=== PATIENT | female | born 1960 | race Two or more races ===

== ENCOUNTER 2021-01-09 09:16 | Emergency (ER) | payer OTHER, SELFPAY ==
--- NOTE | ~2021-01-09 | XR_ITS ---
EXAMINATION: LUMBAR SPINE AND PELVIS AND RIGHT HIP X-RAYS CLINICAL INFORMATION: Pain post fall COMPARISON: None TECHNIQUE: 3 views of the lumbar spine, one view of the pelvis and 2 views of the right hip FINDINGS: Pelvis and right hip: Bone alignment is normal. No fracture or dislocation is seen. There are small osteophytes at both hip joints, left greater than right. The hip joints are otherwise normal. Bones of the pelvis are normal. Soft tissues are normal. Lumbar spine: Bone alignment is normal. No fracture or dislocation is seen. Disc spaces are normal. There is mild facet arthritis of the lower lumbar spine. XR/XR lumbar spine 2-3V IMPRESSION: No fracture or dislocation.
--- NOTE | ~2021-01-09 | XR_ITS ---
EXAMINATION: LUMBAR SPINE AND PELVIS AND RIGHT HIP X-RAYS CLINICAL INFORMATION: Pain post fall COMPARISON: None TECHNIQUE: 3 views of the lumbar spine, one view of the pelvis and 2 views of the right hip FINDINGS: Pelvis and right hip: Bone alignment is normal. No fracture or dislocation is seen. There are small osteophytes at both hip joints, left greater than right. The hip joints are otherwise normal. Bones of the pelvis are normal. Soft tissues are normal. Lumbar spine: Bone alignment is normal. No fracture or dislocation is seen. Disc spaces are normal. There is mild facet arthritis of the lower lumbar spine. XR/XR hip RT w PEL1V IMPRESSION: No fracture or dislocation.
[2021-01-09 09:29] VITALS: BP 121/63; PULSE 82; RESP 18; TEMP 37; O2SAT 99; BMI 27.3
--- NOTE | 2021-01-09 10:08 | ED_ITS ---
HPI - Back Pain/Injury General Chief Complaint: Back Pain/Injury Stated Complaint: work injury - back pain Time Seen by Provider: 01/09/21 10:06 Source: patient Mode of arrival: ambulatory Limitations: no limitations History of Present Illness HPI Narrative: 60-year-old female presenting to the ED with complaints of a work related injury when she was at work 2 days ago she was walking and suddenly just slipped she believes on possibly water landed on her buttock/right hip and since then she has been having pain. She denies head injury or loss of consciousness. She denies any other symptoms complaints or concerns at this time. MD elicited complaint: back pain, back injury and fall Pertinent past history: recent trauma Onset (ago): day(s) (Two days ago) Timing: constant and progressively worsening Severity: moderate Similar Symptoms Previously: No Quality: aching Location: lumbar spine and right lower back Radiation: none Exacerbating factors: movement, walking and lifting Relieving factors: none Context: fall Associated symptoms: denies other symptoms Work related injury: Yes Related Data Previous Rx's Medication Instructions Recorded acetaminophen 500 mg tablet 1,000 mg PO QID PRN #14 tab 01/09/21 (Tylenol Extra Strength) cyclobenzaprine 10 mg tablet 10 mg PO Q8H PRN #14 tab 01/09/21 ibuprofen 800 mg tablet 800 mg PO Q8H PRN #14 tab 01/09/21 lidocaine 5 % topical patch 1 patch TOPICAL DAILY #15 ea 01/09/21 (Lidoderm) Allergies Allergy/AdvReac Type Severity Reaction Status Date / Time codeine [CODEINE] Allergy Unknown HIVES Unverified 11/22/19 16:56 oxycodone [OXYCODONE] Allergy Unknown HIVES Unverified 11/22/19 16:56 azithromycin [From ZITHROMAX] AdvReac Intermediate NAUSEA & Unverified 11/22/19 16:56 VOMITING Review of Systems Review of Systems: Constitutional : No trauma, No Weight loss, No Fever, No Chills, ENT/Mouth : No Hearing loss, No Ear Pain, No Nasal Congestion, No Sinus Pain, No Hoarseness, No sore throat, No Rhinorrhea, No Swallowing Difficulty Cardiovascular : No Chest Pain, No SOB Respiratory : No Cough, No Dyspnea Gastrointestinal : No Nausea, No Vomiting, No Diarrhea, No abdominal Pain, No Hematochezia, No Melena Genitourinary : No Dysuria, No Urinary Frequency, No Hematuria, No Urinary or Bowel Incontinence/retention Musculoskeletal : + Back pain and right hip pain No neck pain, No joint stiffness, No joint swelling Skin : No Skin Lesions, No rash or signs of infection Neuro : No Weakness, No radiation, No Numbness, No Paresthesias, No headache, no loss of bowel or bladder incontinence, no saddle anesthesia, Focal weakness, No radiation Denies history of IV drug usage. Yes all other systems are reviewed and are negative [facility] Past Medical History Attestation statement: The following information was validated with the patient. Medical History Asthma Social History Social History Advance Directives: No Patient : No Physical Exam Vital Signs: Vital Signs: Last Vital Signs Temp 98.6 F 01/09/21 09:29 Pulse 82 01/09/21 09:29 Resp 18 01/09/21 09:29 BP 121/63 01/09/21 09:29 Pulse Ox 99 01/09/21 09:29 Body Mass Index 27.3 vital signs have been reviewed as normal and appeared to be correct. Blood pressure normal. Heart rate normal. Respiration rate normal. Temperature normal. Oxygen saturation normal. Appearance: Alert. Oriented X3. No acute distress. Head: Normal external exam. Normocephalic. Atraumatic. No Perez signs noted. No raccoon eyes noted Eyes: PERRLA. EOMI. Conjunctiva and sclera normal. Eyelids normal. ENT: EAC normal. TM's Normal. Pharynx normal. Uvula midline. Moist mucous membranes. No trismus noted. No drooling noted. No muffled voice noted. Neck: Normal inspection. Neck supple. FROM. No adenopathy. Thyroid Normal. No meningeal signs. No neck mass noted. CVS: Normal heart rate and rhythm. Heart sound normal. No murmurs noted. Pulses normal throughout. Respiratory: No respiratory distress. Painless inspiration. Breath sounds normal. No wheezes/rales/rhonchi noted. Chest nontender. No accessory muscle usage noted or decreased air movement noted. Abdomen: Soft and nontender. Bowel sounds normal in all 4 quadrants. No distention noted. No organomegaly noted. No visible injury noted. Back: No CVA tenderness. Full range of motion noted. No obvious deformities, or edema. Mild para-spinal muscular tenderness from lumbar region to coccyx. Full ROM in back and lower extremities. 5/5 strength hip extension/flexion, abduction, adduction. Mild Lumbar pain with hip flexion against resistance. Straight leg raise test negative on right; Straight leg raise test negative on left; Reflexes normal ankle and knee bilaterally; EHL motor strength normal bilaterally. No rashes/lesion/induration/fluctuance or signs infection noted. Skin: Skin warm and dry. Normal skin color. Normal skin turgor. No rashes/les ions/lacerations noted. Extremities: No lower extremity edema. Extremities exhibit normal range of motion. Extremities nontender. Neuro: Oriented X 3. No motor deficit. No sensory deficit. Reflexes normal. Patient has a normal steady gait. Course Course Course Narrative: Pt c likely muscular pain, but could be herniated disc. Neuro exam shows no deficits. Not c/w AAA/epidural abscess/dissection.No high risk Hx (Incont, fever, immunosupp, recent surgery/LP, coag, signif trauma, wt loss, p uls mass, hx/o Ca, TB, or IVDU) to warrant MRI/CT today. Not c/w Pyelo/UTI/kidney stone. Not cauda equina syndrome. Although due to recent fall will obtain x-ray of lumbar spine and right hip provide Motrin and if x-rays are negative will DC home with symptomatic treatment such as Motrin and muscle relaxes and to return if any new or worsening symptoms follow-up with Work connection. Patient understands agrees with this plan. MDM - Back Pain/Injury Medical Records Attestation: I reviewed the patient's medical records. Imaging Data Lumbar spine and right hip x-ray: Attestation: I personally reviewed and interpreted this imaging study as follows: Radiologist's impression: EXAMINATION: LUMBAR SPINE AND PELVIS AND RIGHT HIP X-RAYS CLINICAL INFORMATION: Pain post fall? COMPARISON: None? TECHNIQUE: 3 views of the lumbar spine, one view of the pelvis and 2 views of the right hip? FINDINGS: Pelvis and right hip: Bone alignment is normal. No fracture or dislocation is seen. There are small osteophytes at both hip joints, left greater than right. The hip joints are otherwise normal. Bones of the pelvis are normal. Soft tissues are normal. Lumbar spine: Bone alignment is normal. No fracture or dislocation is seen. Disc spaces are normal. There is mild facet arthritis of the lower lumbar spine. XR/XR hip RT w PEL1V IMPRESSION: No fracture or dislocation.? Discharge Plan Discharge Clinical Impression: Strain of lumbar region, Fall, Work related injury Patient Disposition: Home, Self-Care Instructions: Low Back Strain (ED), Return to Work Instructions (ED), Lower Back Exercises (ED) Prescriptions: New cyclobenzaprine 10 mg tablet 10 mg PO Q8H PRN (Reason: Muscle spasm) Qty: 14 RF: 0 ibuprofen 800 mg tablet 800 mg PO Q8H PRN (Reason: pain) Qty: 14 RF: 0 acetaminophen [Tylenol Extra Strength] 500 mg tablet 1,000 mg PO QID PRN (Reason: fever or pain) Qty: 14 RF: 0 lidocaine [Lidoderm] 5 % adhesive patch,medicated 1 patch topical DAILY Qty: 15 RF: 0 Referrals: Physician,None [Primary Care Provider] - 2 days (your pcp) Stand Alone Forms: Work/School Release Print Language: Malaysian
[2021-01-09] MEDS: Ibuprofen 800 MG TABLET PO (10:23)
== END 2021-01-09 10:49 | disposition home or self-care (01) ==
PROVIDERS: Emergency Provider Emergency Medicine
DX: S39.012A Strain of muscle, fascia and tendon of lower back, initial encounter (principal); W01.0XXA Fall on same level from slipping, tripping and stumbling without subsequent striking against object, initial encounter; Y93.89 Activity, other specified; Y92.219 Unspecified school as the place of occurrence of the external cause; Y99.0 Civilian activity done for income or pay
CPT/HCPCS: 72100; 73502; 99283

== ENCOUNTER 2021-01-21 10:26 | Emergency (ER) | payer OTHER, SELFPAY ==
[2021-01-21 10:28] VITALS: BP 134/66; PULSE 81; RESP 16; TEMP 36.3; O2SAT 100; BMI 27.3
[2021-01-21] MEDS: traMADoL HCL 50 MG TABLET PO (11:09)
[2021-01-21] MEDS: Ketorolac Tromethamine 15 MG/ML VIAL 30 MG IM (11:09)
--- NOTE | 2021-01-21 11:24 | ED.BACK ---
HPI - Back Pain/Injury General Chief Complaint: Back Pain/Injury Stated Complaint: back pain Time Seen by Provider: 01/21/21 10:45 Source: patient Mode of arrival: ambulatory History of Present Illness HPI Narrative: 60-year-old female with a past medical history of asthma presenting to the ED complaining of acute on chronic right-sided low back pain s/p slip and fall on all 01/09. Patient was seen and treated in the ED after incident, and x-rays are unremarkable. Reports taking prescribed medications without relief, pain worsening. Denies new or more recent fall/injury. Reports pain radiates to right buttock. Denies numbness, tingling, weakness, urinary incontinence/retention, hematuria MD elicited complaint: back pain Related Data Previous Rx's Medication Instructions Recorded acetaminophen 500 mg tablet 1,000 mg PO QID PRN #14 tab 01/09/21 (Tylenol Extra Strength) cyclobenzaprine 10 mg tablet 10 mg PO Q8H PRN #14 tab 01/09/21 ibuprofen 800 mg tablet 800 mg PO Q8H PRN #14 tab 01/09/21 lidocaine 5 % topical patch 1 patch TOPICAL DAILY #15 ea 01/09/21 (Lidoderm) acetaminophen 500 mg tablet 500 mg PO Q6H PRN #20 tab 01/21/21 (Tylenol Extra Strength) cyclobenzaprine 5 mg tablet 5 mg PO Q8H PRN 5 Days #14 tab 01/21/21 lidocaine 5 % topical patch 1 patch TOPICAL DAILY PRN #30 ea 01/21/21 (Lidoderm) MDD remove after 12 hours naproxen 500 mg tablet 500 mg PO BID PRN 10 Days #20 tab 01/21/21 tramadol 50 mg tablet 50 mg PO Q8H PRN #9 tab 01/21/21 Allergies Allergy/AdvReac Type Severity Reaction Status Date / Time codeine [CODEINE] Allergy Unknown HIVES Unverified 11/22/19 16:56 oxycodone [OXYCODONE] Allergy Unknown HIVES Unverified 11/22/19 16:56 azithromycin [From ZITHROMAX] AdvReac Intermediate NAUSEA & Unverified 11/22/19 16:56 VOMITING Review of Systems Review of Systems: Constitutional: No Fever, No Chills ENT/Mouth: No Ear Pain, No sore throat, No Rhinorrhea Cardiovascular: No Chest Pain, No SOB Respiratory: No Cough Gastrointestinal: No Nausea, No Vomiting, No Abdominal pain Genitourinary: No Hematuria, No Urinary Incontinence/retention Musculoskeletal: + joint pain, No Myalgias, No Joint Swelling Skin: No Skin Lesions, No rash Neuro: No Weakness, No Numbness, No Paresthesias Yes all other systems are reviewed and are negative Neurologic: Denies Sensory deficit (Neuro) [facility] Past Medical History Attestation statement: The following information was validated with the patient. Medical History Asthma Social History Social History Advance Directives: No Physical Exam Vital Signs: Vital Signs: Last Vital Signs Temp 97.3 F 01/21/21 10:28 Pulse 81 01/21/21 10:28 Resp 16 01/21/21 10:28 BP 134/66 01/21/21 10:28 Pulse Ox 100 01/21/21 10:28 Body Mass Index 27.3 Const: General: cooperative, healthy appearing and no acute distress Orientation/consciousness: patient oriented x3 Limitations: no limitations HENMT: Head: Yes normal to inspection Ears: hearing grossly normal bilaterally General nose exam: Normal external nose present Face and sinus: Yes normal facial exam Eyes: General: appearance normal, both eyes and all related structures EOM: EOMs intact bilaterally Neck: Neck: Yes normal visual inspection Resp: Effort & Inspection: normal respiratory effort and no respiratory distress Cardio: Rate: regular rate Heart sounds: S1 normal heart sound present and S2 normal heart sound present GI: Inspection: Yes normal to inspection Palpation (GI): Soft to palpation, nontender, no guarding and not rigid : General: Yes no CVA tenderness Back/Spine/Pelvis: Other: No midline thoracic/lumbar spinous tenderness/step-off or deformity. Right-sided buttock/lumbar MSK tenderness to palpation Back: no CVA tenderness Skin: Rashes: no rashes Wounds: no wounds Neuro: Other: No saddle anesthesia. Sensation intact to light touch. Strength intact throughout. Ambulating with steady gait General: patient oriented x3, gait normal, tone normal, moves all extremities and no focal motor deficits Gait exam (Neuro): Normal gait present Motor exam (neuro): 5/5 motor strength present throughout Sensory Exam: No Sensory deficit (Neuro) Extrem: General: Yes normal to inspection MDM - Back Pain/Injury MDM Narrative Medical decision making narrative: 60-year-old female with a past medical history of asthma presenting to the ED complaining of acute on chronic right-sided low back pain s/p slip and fall on all 01/09. On exam vital signs stable, NAD/nontoxic, no midline spinous tenderness throughout, no red flag symptoms. Likely MSK pain/sciatica/muscle spasming. Low concern for cauda equina, cord compression, epidural abscess Plan: Symptomatic treatment, patient has orthopedic follow-up on 01/27 Medical Records Attestation: I reviewed the patient's medical records. Lab Data Attestation: I reviewed the patient's lab results. Discharge Plan Discharge Clinical Impression: Strain of lumbar region Qualifiers: Encounter type: subsequent encounter Qualified Code(s): S39.012D - Strain of muscle, fascia and tendon of lower back, subsequent encounter Patient Disposition: Home, Self-Care Instructions: Acute Low Back Pain (ED) Additional Instructions: Your pain is likely musculoskeletal Flexeril is a muscle relaxer, take at night as it makes you drowsy, do not drive, drink alcohol, or operate machinery while taking it Naproxen as an anti-inflammatory / pain medication, take with food Lidoderm patches are numbing patches, apply to painful area Tramadol as an opiate pain medication, take only when pain is severe for the next 3 days In addition take Tylenol at home If symptoms persist or worsen, pain becomes unbearable, you developed urinary retention or incontinence, or weakness return to the ED Prescriptions: New tramadol 50 mg tablet 50 mg PO Q8H PRN (Reason: pain, severe) Qty: 9 RF: 0 acetaminophen [Tylenol Extra Strength] 500 mg tablet 500 mg PO Q6H PRN (Reason: pain or fever) Qty: 20 RF: 0 lidocaine [Lidoderm] 5 % adhesive patch,medicated 1 patch topical DAILY MDD remove after 12 hours PRN (Reason: pain) Qty: 30 RF: 0 naproxen 500 mg tablet 500 mg PO BID PRN (Reason: pain) 10 Days Qty: 20 RF: 0 cyclobenzaprine 5 mg tablet 5 mg PO Q8H PRN (Reason: pain (scale score 7-10)) 5 Days Qty: 14 RF: 0 No Action cyclobenzaprine 10 mg tablet 10 mg PO Q8H PRN (Reason: Muscle spasm) Qty: 14 RF: 0 ibuprofen 800 mg tablet 800 mg PO Q8H PRN (Reason: pain) Qty: 14 RF: 0 acetaminophen [Tylenol Extra Strength] 500 mg tablet 1,000 mg PO QID PRN (Reason: fever or pain) Qty: 14 RF: 0 lidocaine [Lidoderm] 5 % adhesive patch,medicated 1 patch topical DAILY Qty: 15 RF: 0 Referrals: Physician,None [Primary Care Provider] - 2 days Stand Alone Forms: Work/School Release
== END 2021-01-21 12:08 | disposition home or self-care (01) ==
PROVIDERS: Emergency Provider Emergency Medicine
DX: S39.012D Strain of muscle, fascia and tendon of lower back, subsequent encounter (principal); W01.0XXD Fall on same level from slipping, tripping and stumbling without subsequent striking against object, subsequent encounter; J45.909 Unspecified asthma, uncomplicated
CPT/HCPCS: 96372; 99284; J1885

== ENCOUNTER 2021-12-16 09:48 | Emergency (ER) | payer SELFPAY ==
--- NOTE | ~2021-12-16 | US_ITS ---
EXAMINATION: US VENOUS ULTRASOUND WITH DOPPLER LOWER EXTREMITY, LEFT CLINICAL INFORMATION: Left leg swelling. COMPARISON: None TECHNIQUE: Ultrasound of the deep veins is performed from the hip to the calf with compression sonography and color and pulse Doppler assessment. Spectral analysis with color-flow imaging is performed. FINDINGS: There is normal venous compression and respiratory variation and augmented flow. The visualized common femoral vein, superficial femoral vein, profunda femoral vein, popliteal vein, and the trifurcation region shows no evidence of deep venous thrombosis. Left popliteal cyst measures 4.7 x 1.1 x 3.6 cm. Color Doppler showed no abnormal vascular flow. The subcutaneous soft tissues are unremarkable. If the patient's symptoms persist, followup ultrasound in 5 days 7 days might be of value to exclude proximal propagation from a non-visualized calf vein. US/US venous duplex LE LT IMPRESSION: 1. No evidence for deep venous thrombosis in the visualized veins of the left lower extremity. 2. Left popliteal cyst as detailed above.
--- NOTE | ~2021-12-16 | XR_ITS ---
EXAMINATION: XR KNEE, LEFT CLINICAL INFORMATION: Left knee pain. COMPARISON: None TECHNIQUE: Four views of the left knee. FINDINGS: Mild medial femoral-tibial and patellofemoral degenerative joint changes are seen. There is no acute fracture or dislocation. No significant joint effusion. The soft tissues are unremarkable. XR/XR knee LT 4V IMPRESSION: Mild degenerative joint changes suggesting osteoarthritis. No overt acute osseous abnormality
[2021-12-16 10:04] VITALS: BP 132/80; PULSE 77; RESP 16; TEMP 36.1; O2SAT 98; BMI 28.3
--- NOTE | 2021-12-16 10:29 | ED.EXTPRO ---
HPI - Extremity Problem General Chief complaint: Extremity Problem Stated complaint: L leg swollen, pain cant step on it Time Seen by Provider: 12/16/21 10:12 Source: patient Mode of arrival: ambulatory Limitations: no limitations History of Present Illness HPI Narrative: Patient is a 61-year-old female with a past medical history of asthma, varicose veins, and low back pain presenting with left knee burning pain. Pain started approximately 3 weeks ago. patient states that pain worsens with movement and weight-bearing activity his, she also reports associated knee swelling. Patient denies radiating pain, fevers, chills, warmth of the joint. Patient takes naproxen at home for pain and used KT tape. MD Complaint: joint swelling and joint pain Onset (ago): week(s) (3) Pain Consistency: intermittent Location: left Quality: burning Radiation: none Relieving factors: cold therapy and rest Exacerbating factors: range of motion, weight bearing and walking Associated symptoms: denies other symptoms Related Data Previous Rx's Medication Instructions Recorded acetaminophen 500 mg tablet 1,000 mg PO QID PRN fever or pain 01/09/21 (Tylenol Extra Strength) #14 tabs cyclobenzaprine 10 mg tablet 10 mg PO Q8H PRN Muscle spasm #14 01/09/21 tabs ibuprofen 800 mg tablet 800 mg PO Q8H PRN pain #14 tabs 01/09/21 lidocaine 5 % topical patch 1 patch topical DAILY pain #15 ea 01/09/21 (Lidoderm) acetaminophen 500 mg tablet 500 mg PO Q6H PRN pain or fever 01/21/21 (Tylenol Extra Strength) #20 tabs cyclobenzaprine 5 mg tablet 5 mg PO Q8H PRN pain (scale score 01/21/21 7-10) 5 days #14 tabs lidocaine 5 % topical patch 1 patch topical DAILY PRN pain #30 01/21/21 (Lidoderm) ea naproxen 500 mg tablet 500 mg PO BID PRN pain 10 days #20 01/21/21 tabs tramadol 50 mg tablet 50 mg PO Q8H PRN pain, severe #9 01/21/21 tabs meloxicam 15 mg tablet 15 mg PO DAILY #14 tabs 12/16/21 Allergies Allergy/AdvReac Type Severity Reaction Status Date / Time codeine [CODEINE] Allergy Unknown HIVES Verified 12/16/21 10:04 oxycodone [OXYCODONE] Allergy Unknown HIVES Verified 12/16/21 10:04 azithromycin [From ZITHROMAX] AdvReac Intermediate NAUSEA & Verified 12/16/21 10:04 VOMITING Review of Systems Review of Systems: Constitutional: No Fever, No Chills ENT/Mouth: No sore throat, No Rhinorrhea, No Swallowing Difficulty Eyes: No Eye Pain, No Swelling, No Redness Cardiovascular: No Chest Pain, No SOB, No Orthopnea, No Edema Respiratory: No Cough, No Sputum, No Wheezing, No dyspnea Gastrointestinal: No Nausea, No Vomiting, No Diarrhea, No abdominal Pain Musculoskeletal: + left knee joint pain, No Myalgias Skin: No Skin Lesions, No rash Neuro: No Weakness, No Numbness, No Dizziness, No Headache Psych: No Anxiety/Panic, No Depression Heme/Lymph: No Bruising, No Lymphadenopathy PMFSH Past Medical History Medical History Asthma Social History Social History Advance Directives: No Advance Directives Information Provided: Yes Physical Exam Vital Signs: Vital Signs: Last Vital Signs Temp 97 F 12/16/21 10:04 Pulse 77 12/16/21 10:04 Resp 16 12/16/21 10:04 BP 132/80 12/16/21 10:04 Pulse Ox 98 12/16/21 10:04 O2 Del Method 12/16/21 10:04 BMI result Body Mass Index 28.3 Appearance: Alert. Oriented X3. No acute distress. Eyes: Pupils equal, round and reactive to light. ENT: Pharynx normal. Neck: Normal inspection. Neck supple. CVS: Normal heart rate and rhythm. Pulses normal. Respiratory: No respiratory distress. Breath sounds normal. Abdomen: Soft and nontender. Skin: Skin warm and dry. Normal skin color. Normal skin turgor. No rashes. Varicose veins noted on bilateral lower extremities Extremities: No lower extremity edema. Left knee with no pain on palpation, full range of motion, no weakness. vericose veins present at distal thighs bilatearally, chronic. mild pain in the popliteal area without palpable mass. no joint laxity apprecaited. Neuro: Oriented X 3. No motor deficit. No sensory deficit. gait not tested due to pain. Course Course Course Narrative: 61-year-old female with a past medical history of asthma, varicose veins, and low back pain presenting with left knee burning pain. Pain worse with movement and started approximately 3 weeks ago. Plan: - Knee X-ray - Ultrasound venous duplex LE Reevaluation(s) Reevaluation #1: X-ray showing osteoarthritis. 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 Placed in Ben wrap and provided crutches. Discussed rice treatment. She will follow-up with orthopedics. Work note provided per request. Stable for DC P Discharge Plan Discharge Clinical Impression: Solorzano cyst, Knee osteoarthritis Patient Disposition: Home, Self-Care Instructions: Osteoarthritis (ED), Bakers Cyst (ED) Additional Instructions: Your X-ray today showed mild degenerative joint changes suggesting osteoarthritis. Your ultrasound showed a 4.7 x 1.1 x 3.6 cyst in the popliteal area behind your knee. Recommend wearing the provided Ben wrap for compression and support. You may bear weight as tolerated. If it is too painful to bear weight, use the crutches provided. Rest, ice, elevate your knee whenever possible. Stop taking the naproxen and start taking the newly prescribed anti-inflammatory pain medication. Recommend following up with Orthopedics. Name and number below. If you develop new or worsening symptoms call 911 or come back to the ER for further evaluation. Prescriptions: New meloxicam 15 mg tablet 15 mg PO DAILY Qty: 14 0RF No Action cyclobenzaprine 10 mg tablet 10 mg PO Q8H PRN (Reason: Muscle spasm) Qty: 14 0RF ibuprofen 800 mg tablet 800 mg PO Q8H PRN (Reason: pain) Qty: 14 0RF acetaminophen [Tylenol Extra Strength] 500 mg tablet 1,000 mg PO QID PRN (Reason: fever or pain) Qty: 14 0RF lidocaine [Lidoderm] 5 % adhesive patch,medicated 1 patch topical DAILY Qty: 15 0RF Rx Instructions: leave on most painful area for up to 12 hrs. May be substituted tramadol 50 mg tablet 50 mg PO Q8H PRN (Reason: pain, severe) Qty: 9 0RF acetaminophen [Tylenol Extra Strength] 500 mg tablet 500 mg PO Q6H PRN (Reason: pain or fever) Qty: 20 0RF lidocaine [Lidoderm] 5 % adhesive patch,medicated 1 patch topical DAILY MDD remove after 12 hours PRN (Reason: pain) Qty: 30 0RF Rx Instructions: leave on most painful area for up to 12 hrs naproxen 500 mg tablet 500 mg PO BID PRN (Reason: pain) 10 Days Qty: 20 0RF cyclobenzaprine 5 mg tablet 5 mg PO Q8H PRN (Reason: pain (scale score 7-10)) 5 Days Qty: 14 0RF Referrals: [facility] [place] [facility] [Provider Group] (left knee pain, OA, bakers cyst) Stand Alone Forms: Work/School Release
== END 2021-12-16 13:15 | disposition home or self-care (01) ==
PROVIDERS: Emergency Provider Emergency Medicine
DX: M71.22 Synovial cyst of popliteal space [Baker], left knee (principal); R60.0 Localized edema; M54.50 Low back pain, unspecified; M17.12 Unilateral primary osteoarthritis, left knee; Z79.899 Other long term (current) drug therapy
CPT/HCPCS: 73564; 93971; 99283; 99284

== ENCOUNTER 2022-03-26 14:24 | Emergency (ER) | payer OTHER, SELFPAY ==
[2022-03-26 14:27] VITALS: BP 124/72; PULSE 87; RESP 19; TEMP 36.6; O2SAT 98; BMI 28.3
--- NOTE | 2022-03-26 14:28 | ED_ITS ---
HPI - URI/Sore Throat General Chief Complaint: Upper Respiratory Symptoms <Diane Sams MARY JO Smith - Last Filed: 03/26/22 15:08> Stated Complaint: congestion and tired <Diane Sams MARY JO Smith - Last Filed: 03/26/22 15:08> Time Seen by Provider: 03/26/22 14:33 <Diane Flaquitadelisa Smith CNP - Last Filed: 03/26/22 15:08> Source: patient <Diane Sams MARY JO Smith - Last Filed: 03/26/22 15:08> Mode of arrival: ambulatory <Diane Sams MARY JO Smith - Last Filed: 03/26/22 15:08> Limitations: no limitations <Diane Sams MARY JO Smith - Last Filed: 03/26/22 15:08> History of Present Illness HPI Narrative: Patient is a 61-year-old female who presents emergency department for evaluation of nasal/ sinus congestion for 1 week, progressively worsening, frontal headache with fatigue. Has tested for COVID at work and has been negative. Before this she had rhinorrhea, sore throat, cough which had improved. <Diane Sams MARY JO Smith - Last Filed: 03/26/22 15:08> Related Data Home Medications: Previous Rx's Medication Instructions Recorded acetaminophen 500 mg tablet 1,000 mg PO QID PRN fever or pain 01/09/21 (Tylenol Extra Strength) #14 tabs cyclobenzaprine 10 mg tablet 10 mg PO Q8H PRN Muscle spasm #14 01/09/21 tabs ibuprofen 800 mg tablet 800 mg PO Q8H PRN pain #14 tabs 01/09/21 lidocaine 5 % topical patch 1 patch topical DAILY pain #15 ea 01/09/21 (Lidoderm) acetaminophen 500 mg tablet 500 mg PO Q6H PRN pain or fever 01/21/21 (Tylenol Extra Strength) #20 tabs cyclobenzaprine 5 mg tablet 5 mg PO Q8H PRN pain (scale score 01/21/21 7-10) 5 days #14 tabs lidocaine 5 % topical patch 1 patch topical DAILY PRN pain #30 01/21/21 (Lidoderm) ea naproxen 500 mg tablet 500 mg PO BID PRN pain 10 days #20 01/21/21 tabs tramadol 50 mg tablet 50 mg PO Q8H PRN pain, severe #9 01/21/21 tabs meloxicam 15 mg tablet 15 mg PO DAILY #14 tabs 12/16/21 amoxicillin 875 mg-potassium 1 tab PO BID 7 days #14 tabs 03/26/22 clavulanate 125 mg tablet <Diane Smith CNP - Last Filed: 03/26/22 15:08> Allergies/Adverse Reactions: Allergies Allergy/AdvReac Type Severity Reaction Status Date / Time codeine [CODEINE] Allergy Unknown HIVES Verified 12/16/21 10:04 oxycodone [OXYCODONE] Allergy Unknown HIVES Verified 12/16/21 10:04 azithromycin [From ZITHROMAX] AdvReac Intermediate NAUSEA & Verified 12/16/21 10:04 VOMITING <Diane Smith CNP - Last Filed: 03/26/22 15:08> Review of Systems Review of Systems: Constitutional: No fever. No chills. No weakness. Positive fatigue. ENT/ Mouth: No Ear Pain, positive Nasal Congestion, no sore throat, No Rhinorrhea, No Swallowing Difficulty Skin: No rash or itching. Cardiovascular: No chest pain. No palpitations. Respiratory: No shortness of breath. No cough. No sputum production. Gastrointestinal: No nausea. No vomiting. No diarrhea. No abdominal pain. Genitourinary: No burning micturition. No urinary frequency. Neurologic: Positive headache. No dizziness. No syncope. No numbness or tingling in the extremities. Musculoskeletal: No muscle pain. No back pain. No joint pain or stiffness. <Diane Smith CNP - Last Filed: 03/26/22 15:08> Yes all other systems are reviewed and are negative <Diane Smith CNP - Last Filed: 03/26/22 15:08> PMF Past Medical History Attestation statement: The following information was validated with the patient. <Diane Smith CNP - Last Filed: 03/26/22 15:08> Source: old records reviewed <Diane Smith CNP - Last Filed: 03/26/22 15:08> Medical History: Medical History Asthma <Diane Smith CNP - Last Filed: 03/26/22 15:08> Social History Social History: Social History Advance Directives: No <Diane Smith CNP - Last Filed: 03/26/22 15:08> Physical Exam Vital Signs: Vital Signs: Last Vital Signs Temp 98 F 03/26/22 14:27 Pulse 87 03/26/22 14:27 Resp 03/26/22 14:27 BP 124/72 03/26/22 14:27 Pulse Ox 98 03/26/22 14:27 BMI result Body Mass Index 28.3 <Diane Smith CNP - Last Filed: 03/26/22 15:08> Vital Signs: Last Vital Signs Temp 98 F 03/26/22 14:27 Pulse 87 03/26/22 14:27 Resp 03/26/22 14:27 BP 124/72 03/26/22 14:27 Pulse Ox 98 03/26/22 14:27 BMI result Body Mass Index 28.3 <Demetri Sears MD - Last Filed: 03/26/22 16:22> Appearance: Alert.?Oriented to person, place and time. No acute distress.?Nor mal affect. Eyes: Pupils equal, round and reactive to light.? ENT: TM normal bilaterally. Pharynx normal.??Frontal sinus tenderness bilaterally. Neck: Normal inspection.? Neck supple.??No cervical adenopathy. No nuchal rigidity CVS: Heart sounds normal. Normal heart rate and rhythm.? Pulses normal.?? Respiratory: No respiratory distress.? Lung sounds clear to auscultation bilaterally?? Abdomen: Soft and non-tender. Normoactive bowel sounds. Skin: Skin warm and dry.? Normal skin color.? ? Extremities: No lower extremity edema.? Neuro: Moves all extremities spontaneously. Sensation intact bilaterally. No motor deficits. Ambulates with normal steady gait. <Diane Smith CNP - Last Filed: 03/26/22 15:08> Medical Decision Making Medical Decision Making MDM Narrative: Patient is a 61-year-old female with past medical history of asthma, presenting for evaluation of upper respiratory symptoms. COVID-19 testing negative. Influenza testing negative. Examination most consistent with sinusitis, given duration of symptoms suspect bacterial etiology at this time, discussed with patient plan of care for saline nasal spray/sinus rinses, prescription for Augmentin sent to pharmacy. At this time history and physical exam not consistent with ACS/PE/pneumonia. Well-appearing, nontoxic, afebrile, no tachycardia or tachypnea/hypoxia. Speaking clear full sentences, ambulatory with steady gait. Discussed conservative treatment including rest, hydration, Tylenol/ibuprofen as needed for pain. Advised to follow-up with primary care provider as needed, discussed reasons to return back to the emergency department. All questions were answered. Patient discharged home in stable condition. <Diane Smith CNP - Last Filed: 03/26/22 15:08> Differential Diagnosis Differential Diagnoses: The differential diagnosis associated with the presentation includes (As noted above) <Diane Smith CNP - Last Filed: 03/26/22 15:08> Lab Data MDM Lab Attestation statement: I reviewed the patient's lab results. <Diane Smith CNP - Last Filed: 03/26/22 15:08> Labs: Lab Results 03/26/22 03/26/22 Range/Units 14:35 14:35 COVID-19 ([facility]) Negative (Negative) COVID-19 Clin Com See Note Influenza Type A ([facility]) Negative (Negative) Influenza Type B ([facility]) Negative (Negative) Influenza A & B Note See Note <Diane Smith CNP - Last Filed: 03/26/22 15:08> Lab Results 03/26/22 03/26/22 Range/Units 14:35 14:35 COVID-19 ([facility]) Negative (Negative) COVID-19 Clin Com See Note Influenza Type A ([facility]) Negative (Negative) Influenza Type B ([facility]) Negative (Negative) Influenza A & B Note See Note <Demetri Sears MD - Last Filed: 03/26/22 16:22> Prescription Management I considered prescription management with: Antibiotic <Diane Smith CNP - Last Filed: 03/26/22 15:08> Attestation Attending Attestation: I personally reviewed PA/resident/nurse practitioner note. I reviewed a all results and treatment plan. I agree with the assessment and plan. I agree with disposition <Demetri Sears MD - Last Filed: 03/26/22 16:22> Discharge Plan Discharge Clinical Impression: Sinusitis <Diane Smith CNP - Last Filed: 03/26/22 15:08> Patient Disposition: Home, Self-Care <Diane Smith CNP - Last Filed: 03/26/22 15:08> Instructions: Sinusitis (ED) <Diane Smith CNP - Last Filed: 03/26/22 15:08> Additional Instructions: A prescription for Augmentin was sent to your pharmacy, please complete this entire course. Saline nasal spray/sinus rinses may also be helpful for your symptoms. Follow-up with your primary care provider as needed for persistent symptoms. Feel free to return back to emergency department any new or worsening symptoms or concerns. <Diane Smith CNP - Last Filed: 03/26/22 15:08> Prescriptions: New amoxicillin-pot clavulanate 875-125 mg tablet 1 tab PO BID 7 Days Qty: 14 0RF No Action cyclobenzaprine 10 mg tablet 10 mg PO Q8H PRN (Reason: Muscle spasm) Qty: 14 0RF ibuprofen 800 mg tablet 800 mg PO Q8H PRN (Reason: pain) Qty: 14 0RF acetaminophen [Tylenol Extra Strength] 500 mg tablet 1,000 mg PO QID PRN (Reason: fever or pain) Qty: 14 0RF lidocaine [Lidoderm] 5 % adhesive patch,medicated 1 patch topical DAILY Qty: 15 0RF Rx Instructions: leave on most painful area for up to 12 hrs. May be substituted meloxicam 15 mg tablet 15 mg PO DAILY Qty: 14 0RF tramadol 50 mg tablet 50 mg PO Q8H PRN (Reason: pain, severe) Qty: 9 0RF acetaminophen [Tylenol Extra Strength] 500 mg tablet 500 mg PO Q6H PRN (Reason: pain or fever) Qty: 20 0RF lidocaine [Lidoderm] 5 % adhesive patch,medicated 1 patch topical DAILY MDD remove after 12 hours PRN (Reason: pain) Qty: 30 0RF Rx Instructions: leave on most painful area for up to 12 hrs naproxen 500 mg tablet 500 mg PO BID PRN (Reason: pain) 10 Days Qty: 20 0RF cyclobenzaprine 5 mg tablet 5 mg PO Q8H PRN (Reason: pain (scale score 7-10)) 5 Days Qty: 14 0RF <Diane Smith CNP - Last Filed: 03/26/22 15:08> Referrals: Physician,None [Primary Care Provider] - <Diane Smith CNP - Last Filed: 03/26/22 15:08> Interventions: ED Discharge Assessment Last Done: 03/26/22 15:14 <Diane Smith CNP - Last Filed: 03/26/22 15:08> Discharge Date/Time: 03/26/22 15:16 <Diane Smith CNP - Last Filed: 03/26/22 15:08>
[2022-03-26 14:56] LABS: COVID-19 Test Negative (Negative); IDNOW Serial# BCCEAD1C
[2022-03-26 14:59] LABS: IDNOW Serial# 9DB6401D; Influenza A Negative (Negative); Influenza B2 Negative (Negative)
== END 2022-03-26 15:16 | disposition home or self-care (01) ==
LOC: HO.ED 14:40
PROVIDERS: Nurse Practitioner Family; Emergency Provider Emergency Medicine
DX: J32.9 Chronic sinusitis, unspecified (principal); Z20.822 Contact with and (suspected) exposure to COVID-19; Z87.09 Personal history of other diseases of the respiratory system
CPT/HCPCS: 87502; 87635; 99282; 99283

== ENCOUNTER 2022-08-18 10:21 | Emergency (ER) | payer OTHER, SELFPAY ==
--- NOTE | ~2022-08-18 | XR_ITS ---
EXAMINATION: XR CHEST CLINICAL INFORMATION: Cough COMPARISON: Previous chest x-ray over 2019 TECHNIQUE: Frontal view of the chest was obtained. FINDINGS: The cardiac and mediastinal contours are normal. The lungs are clear. No pleural effusion or pneumothorax. Normal bone structures. XR/XR chest 1V IMPRESSION: Unremarkable examination.
--- NOTE | 2022-08-18 10:32 | ED_ITS ---
HPI - URI/Sore Throat General Chief Complaint: General Medical Stated Complaint: head pressure, asthma, throat pain Time Seen by Provider: 08/18/22 10:30 Source: patient, RN notes reviewed and old records reviewed Mode of arrival: ambulatory History of Present Illness HPI Narrative: 61-year-old female with PMHx of Asthma presents to ED with c/o SOB, sinus pressure, dry cough and sore throat x 1 day. Admits to mild chest tightness. 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 Patient reports not having any inhalers at home to help manage asthma. Denies fever, chills, pedal edema, calf pain, recent travel MD elicited complaint: cough, sore throat, rhinorrhea and nasal congestion Related Data Previous Rx's Medication Instructions Recorded acetaminophen 500 mg tablet 1,000 mg PO QID PRN fever or pain 01/09/21 (Tylenol Extra Strength) #14 tabs cyclobenzaprine 10 mg tablet 10 mg PO Q8H PRN Muscle spasm #14 01/09/21 tabs ibuprofen 800 mg tablet 800 mg PO Q8H PRN pain #14 tabs 01/09/21 lidocaine 5 % topical patch 1 patch topical DAILY pain #15 ea 01/09/21 (Lidoderm) acetaminophen 500 mg tablet 500 mg PO Q6H PRN pain or fever 01/21/21 (Tylenol Extra Strength) #20 tabs cyclobenzaprine 5 mg tablet 5 mg PO Q8H PRN pain (scale score 01/21/21 7-10) 5 days #14 tabs lidocaine 5 % topical patch 1 patch topical DAILY PRN pain #30 01/21/21 (Lidoderm) ea naproxen 500 mg tablet 500 mg PO BID PRN pain 10 days #20 01/21/21 tabs tramadol 50 mg tablet 50 mg PO Q8H PRN pain, severe #9 01/21/21 tabs meloxicam 15 mg tablet 15 mg PO DAILY #14 tabs 12/16/21 amoxicillin 875 mg-potassium 1 tab PO BID 7 days #14 tabs 03/26/22 clavulanate 125 mg tablet albuterol sulfate 90 mcg/actuation 2 puff inhalation Q4-6H PRN 08/18/22 aerosol inhaler shortness of breath or wheezing #6.7 grams benzonatate 100 mg capsule 100 mg PO TID PRN cough #14 caps 08/18/22 fluticasone propionate 50 2 spray intranasal DAILY #16 grams 08/18/22 mcg/actuation nasal spray,suspension (Flonase Allergy Relief) Allergies Allergy/AdvReac Type Severity Reaction Status Date / Time codeine [CODEINE] Allergy Unknown HIVES Verified 12/16/21 10:04 oxycodone [OXYCODONE] Allergy Unknown HIVES Verified 12/16/21 10:04 azithromycin [From ZITHROMAX] AdvReac Intermediate NAUSEA & Verified 12/16/21 10:04 VOMITING Review of Systems Review of Systems: Constitutional: No Fever, No Chills ENT/Mouth: No Ear Pain, + Nasal Congestion, No Sinus Pain, No Hoarseness, + sore throat, + Rhinorrhea, No Swallowing Difficulty Cardiovascular: + Chest tightness, + SOB Respiratory: + Cough, No Sputum, + Wheezing Gastrointestinal: No Nausea, No Vomiting, No Diarrhea, No Constipation, No Abdominal pain Musculoskeletal: No joint pain, No Myalgias, No Joint Swelling Skin: No Skin Lesions, No rash Neuro: No Weakness Yes all other systems are reviewed and are negative Constitutional: Constitutional: Reports as per [facility] Past Medical History Attestation statement: The following information was validated with the patient. Source: old records reviewed Medical History Asthma Social History Social History Alcohol intake: never Smoked in Last 30 Days: No Use of substances other than those prescribed or required for medical reasons: No Advance Directives: No Advance Directives Information Provided: Yes Physical Exam Vital Signs: Vital Signs: Last Vital Signs Temp 98.6 F 08/18/22 10:35 Pulse 79 08/18/22 14:18 Resp 20 08/18/22 14:18 BP 128/72 08/18/22 14:18 Pulse Ox 98 08/18/22 14:18 O2 Del Method Room Air 08/18/22 14:18 BMI result Body Mass Index 29.3 Const: General: cooperative, healthy appearing, no acute distress, alert and awake Orientation/consciousness: patient oriented x3 Limitations: no limitations HEENT: Head: Yes normal to inspection and Yes atraumatic Ears: hearing grossly normal bilaterally, external ears normal, TM's normal bilaterally and mastoids normal General nose exam: Normal external nose present and Nasal discharge present Face and sinus: Yes normal facial exam Throat: Yes posterior oropharynx normal, Yes uvula midline, No peritonsillar mass, Yes posterior oropharynx abnormal (Mildly erythematous), No uvula laterally displaced and No uvular edema Eyes: General: appearance normal, both eyes and all related structures EOM: EOMs intact bilaterally Neck: Neck: Yes normal visual inspection and Yes no meningeal signs Resp: Effort & Inspection: normal respiratory effort and no respiratory distress Auscultation: clear to auscultation bilaterally, no crackles, no rales, no rhonchi and no wheezes Cardio: Rate: regular rate Heart sounds: S1 normal heart sound present and S2 normal heart sound present GI: Inspection: Yes normal to inspection Skin: Rashes: no rashes Wounds: no wounds Neuro: General: patient oriented x3, tone normal and no meningeal signs Gait exam (Neuro): Normal gait present Extrem: General: Yes normal to inspection, Yes no pedal edema and Yes no calf tenderness Course Course Course Narrative: -1318--COVID/flu and rapid strep negative. CXR unremarkable. Patient reports symptomatic improvement after DuoNeb given in the ED. Lungs CTA. Results discussed with patient including worrisome signs and symptoms and strict return precautions, and when to return to the emergency department. They verbalized understanding and feel safe for discharge at this time. Medications Administered Discontinued Medications Generic Name Dose Route Start Last Admin Trade Name Freq PRN Reason Stop Dose Admin Albuterol/Ipratropium 3 ml 08/18/22 11:20 08/18/22 12:01 Albuterol/Iprat 2.5/0.5mg 3 Ml Ampul.Neb INHALE 08/18/22 11:21 3 ml ONCE ONE Administration Benzonatate 100 mg 08/18/22 11:20 08/18/22 11:39 Benzonatate 100 Mg Capsule PO 08/18/22 11:21 100 mg ONCE ONE Administration Medical Decision Making Medical Decision Making MDM Narrative: 61-year-old female with PMHx of Asthma presents to ED with c/o SOB, sinus pressure, dry cough and sore throat x 1 day. Admits to mild chest tightness. On exam vital signs stable, NAD, nontoxic appearing, no respiratory distress, talking in complete sentences, lungs CTA, no pedal edema/calf tenderness. Concern for viral illness vs asthma exacerbation vs bronchitis or pneumonia. No evidence of [employer]. Low suspicion for ACS/PE or DVT Plan: COVID/flu, rapid strep testing, CXR, DuoNeb Please refer to course for remaining clinical decision making, interpretation of labs/imaging results, and discussions with consultants and/or family members. Differential Diagnosis Differential Diagnoses: The differential diagnosis associated with the presentat ion includes As above Admission/Observation Consideration of admission/observation: Escalation of care including admission/observation considered Lab Data MDM Lab Attestation statement: I reviewed the patient's lab results. Labs: Lab Results 08/18/22 08/18/22 08/18/22 Range/Units 11:14 11:14 11:14 COVID-19 ([facility]) Negative (Negative) COVID-19 Clin Com See Note Influenza Type A ([facility]) Negative (Negative) Influenza Type B ([facility]) Negative (Negative) Influenza A & B Note See Note S. pyogenes GrpA [facility] Negative (Negative) Radiology Impression Discussion of test interpretation with radiology: I have reviewed the radiologist's reading. External Record Review External record reviewed: Inpatient record, Office record, Outpatient record, Prior outpatient labs, Prior outpatient radiology, Primary care record and Outside ED record Tests considered The following testing was considered but not selected: As above Discharge Plan Discharge Clinical Impression: Acute viral syndrome Patient Disposition: Home, Self-Care Instructions: Viral Syndrome (ED) Additional Instructions: You tested negative for COVID, flu, and your x-ray is unremarkable Flonase is a nasal decongestion, take as needed Use albuterol inhaler for shortness of breath/wheezing Rest Stay hydrated Take Tylenol/ Motrin as needed Follow-up with her doctor Prescriptions: New benzonatate 100 mg capsule 100 mg PO TID PRN (Reason: cough) Qty: 14 0RF albuterol sulfate 90 mcg/actuation HFA aerosol inhaler 2 puff inhalation Q4-6H PRN (Reason: shortness of breath or wheezing) Qty: 6.7 0RF fluticasone propionate [Flonase Allergy Relief] 50 mcg/actuation spray,suspension 2 spray intranasal DAILY Qty: 16 0RF Rx Instructions: administer into each nostril No Action cyclobenzaprine 10 mg tablet 10 mg PO Q8H PRN (Reason: Muscle spasm) Qty: 14 0RF ibuprofen 800 mg tablet 800 mg PO Q8H PRN (Reason: pain) Qty: 14 0RF acetaminophen [Tylenol Extra Strength] 500 mg tablet 1,000 mg PO QID PRN (Reason: fever or pain) Qty: 14 0RF lidocaine [Lidoderm] 5 % adhesive patch,medicated 1 patch topical DAILY Qty: 15 0RF Rx Instructions: leave on most painful area for up to 12 hrs. May be substituted meloxicam 15 mg tablet 15 mg PO DAILY Qty: 14 0RF tramadol 50 mg tablet 50 mg PO Q8H PRN (Reason: pain, severe) Qty: 9 0RF acetaminophen [Tylenol Extra Strength] 500 mg tablet 500 mg PO Q6H PRN (Reason: pain or fever) Qty: 20 0RF lidocaine [Lidoderm] 5 % adhesive patch,medicated 1 patch topical DAILY MDD remove after 12 hours PRN (Reason: pain) Qty: 30 0RF Rx Instructions: leave on most painful area for up to 12 hrs naproxen 500 mg tablet 500 mg PO BID PRN (Reason: pain) 10 Days Qty: 20 0RF cyclobenzaprine 5 mg tablet 5 mg PO Q8H PRN (Reason: pain (scale score 7-10)) 5 Days Qty: 14 0RF amoxicillin-pot clavulanate 875-125 mg tablet 1 tab PO BID 7 Days Qty: 14 0RF Referrals: Physician,None [Primary Care Provider] - Interventions: ED Discharge Assessment Last Done: 08/18/22 14:18 Discharge Date/Time: 08/18/22 14:20
[2022-08-18 10:35] VITALS: BP 135/85; PULSE 87; RESP 20; TEMP 37; O2SAT 95
[2022-08-18 10:45] VITALS: BMI 29.3
[2022-08-18] MEDS: Benzonatate 100 MG CAPSULE PO (11:39)
[2022-08-18] MEDS: Albuterol/Iprat 2.5/0.5MG 3 ML AMPUL.NEB INHALE (12:01)
[2022-08-18 12:03] VITALS: PULSE 73; RESP 18; O2SAT 96
[2022-08-18 12:05] LABS: COVID-19 Test Negative (Negative); IDNOW Serial# BCCEAD1C
[2022-08-18 12:06] LABS: IDNOW Serial# 08D9AD1C; IDNOW Serial# 9DB6401D; Influenza A Negative (Negative); Influenza B2 Negative (Negative); Strep A Nucleic Acid Negative (Negative)
[2022-08-18 14:18] VITALS: BP 128/72; PULSE 79; RESP 20; O2SAT 98
== END 2022-08-18 14:20 | disposition home or self-care (01) ==
PROVIDERS: Physician Assistant; Emergency Provider Emergency Medicine
DX: B34.9 Viral infection, unspecified (principal); R06.02 Shortness of breath; R05.9 Cough, unspecified; J45.909 Unspecified asthma, uncomplicated; Z20.822 Contact with and (suspected) exposure to COVID-19; J02.9 Acute pharyngitis, unspecified
CPT/HCPCS: 71045; 87502; 87635; 87651; 94640; 99284

== ENCOUNTER 2023-05-29 15:10 | Emergency (ER) | payer OTHER, SELFPAY ==
--- NOTE | ~2023-05-29 | XR_ITS ---
Examination:: AP pelvis and bilateral hips. Left shoulder. CLINICAL INDICATION: Atraumatic left shoulder pain. Pelvic pain. COMPARISON: Right hip 01/09/2021. TECHNIQUE: AP pelvis and bilateral hips 5 views. Left shoulder 3 views. FINDINGS: LEFT SHOULDER: The glenohumeral and AC joint space is preserved. There is no visible acute fracture, dislocation or bony erosive changes seen. The soft tissues are normal. AP PELVIS: There is normal symmetry of bilateral hip joints and SI joints no fracture or, lytic or sclerotic process involving the pelvic bones. BILATERAL HIP JOINTS: There is maintained bilateral hip joint space. No visible acute fracture, dislocation or periarticular spurring seen. No soft tissue calcification or swelling seen. XR/XR shoulder LT min 2V IMPRESSION: Unremarkable left shoulder exam. Unremarkable AP pelvis and bilateral hip exam.
--- NOTE | ~2023-05-29 | US_ITS ---
EXAMINATION: US VENOUS ULTRASOUND WITH DOPPLER LOWER EXTREMITY, LEFT CLINICAL INFORMATION: Rule out DVT COMPARISON: None available. TECHNIQUE: Ultrasound of the deep veins is performed from the hip to the calf with compression sonography and color and pulse Doppler assessment. Spectral analysis with color-flow imaging is performed. FINDINGS: There is normal venous compression and respiratory variation and augmented flow. The visualized common femoral vein, superficial femoral vein, profunda femoral vein, popliteal vein, and the trifurcation region shows no evidence of deep venous thrombosis. Popliteal cyst measures 3.0 x 1.0 x 3.5 cm. US/US venous duplex LE IMPRESSION: 1. No DVT demonstrated in the left lower extremity. 2. Solorzano's cyst measures 3.0 x 1.0 x 3.5 cm.
--- NOTE | ~2023-05-29 | XR_ITS ---
Examination:: AP pelvis and bilateral hips. Left shoulder. CLINICAL INDICATION: Atraumatic left shoulder pain. Pelvic pain. COMPARISON: Right hip 01/09/2021. TECHNIQUE: AP pelvis and bilateral hips 5 views. Left shoulder 3 views. FINDINGS: LEFT SHOULDER: The glenohumeral and AC joint space is preserved. There is no visible acute fracture, dislocation or bony erosive changes seen. The soft tissues are normal. AP PELVIS: There is normal symmetry of bilateral hip joints and SI joints no fracture or, lytic or sclerotic process involving the pelvic bones. BILATERAL HIP JOINTS: There is maintained bilateral hip joint space. No visible acute fracture, dislocation or periarticular spurring seen. No soft tissue calcification or swelling seen. XR/XR hip BI w PEL1V IMPRESSION: Unremarkable left shoulder exam. Unremarkable AP pelvis and bilateral hip exam.
[2023-05-29 15:38] VITALS: BP 113/68; PULSE 92; RESP 18; TEMP 36; O2SAT 98; BMI 29.1
--- NOTE | 2023-05-29 15:38 | ED_ITS ---
HPI - Extremity Injury (Lower) General Chief Complaint: Extremity Injury, Lower Stated Complaint: L LEG PAIN Time Seen by Provider: 05/29/23 16:59 History of Present Illness HPI Narrative: patient complains of pain in the left shoulder and also in the left posterior thigh radiating to the groin area She did do some lifting yesterday and thinks maybe she strained something but does not recall any injury happening yesterday She is walking easily it does hurt to move her shoulder a little, there is pain with walking She has no chest pain no shortness a breath, denies any calf pain or calf swelling, denies any rash Related Data Previous Rx's Medication Instructions Recorded acetaminophen 500 mg tablet 1,000 mg (2 x 500 mg) PO QID PRN 01/09/21 (Tylenol Extra Strength) fever or pain #14 tabs cyclobenzaprine 10 mg tablet 10 mg PO Q8H PRN Muscle spasm #14 01/09/21 tabs ibuprofen 800 mg tablet 800 mg PO Q8H PRN pain #14 tabs 01/09/21 lidocaine 5 % topical patch 1 patch topical DAILY pain #15 ea 01/09/21 (Lidoderm) acetaminophen 500 mg tablet 500 mg PO Q6H PRN pain or fever 01/21/21 (Tylenol Extra Strength) #20 tabs cyclobenzaprine 5 mg tablet 5 mg PO Q8H PRN pain (scale score 01/21/21 7-10) 5 days #14 tabs lidocaine 5 % topical patch 1 patch topical DAILY PRN pain #30 01/21/21 (Lidoderm) ea naproxen 500 mg tablet 500 mg PO BID PRN pain 10 days #20 01/21/21 tabs tramadol 50 mg tablet 50 mg PO Q8H PRN pain, severe #9 01/21/21 tabs meloxicam 15 mg tablet 15 mg PO DAILY #14 tabs 12/16/21 amoxicillin 875 mg-potassium 1 tab PO BID 7 days #14 tabs 03/26/22 clavulanate 125 mg tablet albuterol sulfate 90 mcg/actuation 2 puff inhalation Q4-6H PRN 08/18/22 aerosol inhaler shortness of breath or wheezing #6.7 grams benzonatate 100 mg capsule 100 mg PO TID PRN cough #14 caps 08/18/22 fluticasone propionate 50 2 spray intranasal DAILY #16 grams 08/18/22 mcg/actuation nasal spray,suspension (Flonase Allergy Relief) naproxen 500 mg tablet (Naprosyn) 500 mg PO BID PRN pain #20 tabs 05/29/23 Allergies Allergy/AdvReac Type Severity Reaction Status Date / Time codeine [CODEINE] Allergy Unknown HIVES Verified 05/29/23 15:38 oxycodone [OXYCODONE] Allergy Unknown HIVES Verified 05/29/23 15:38 azithromycin [From ZITHROMAX] AdvReac Intermediate NAUSEA & Verified 05/29/23 15:38 VOMITING [facility] Past Medical History Source: nursing notes reviewed Medical History Asthma Social History Social History Alcohol intake: never Advance Directives: No Advance Directives Information Provided: No Physical Exam Vital Signs: Vital Signs: Last Vital Signs Temp 97.7 F 05/29/23 17:13 Pulse 82 05/29/23 17:13 Resp 16 05/29/23 17:13 BP 127/70 05/29/23 17:13 Pulse Ox 97 05/29/23 17:13 O2 Del Method Room Air 05/29/23 17:13 BMI result Body Mass Index 29.1 general appearance is no distress, comfortable Head is normocephalic atraumatic Neck is supple nontender Chest clear to auscultation bilateral Abdomen soft nontender The back there is no significant low back tenderness, full range of motion Extremities there is tenderness to the left upper posterior thigh and some tenderness to the groin, the skin in the area is totally normal there is no rash no redness no swelling Left shoulder has good range of motion there is some tenderness to the anterior shoulder, no redness no warmth no rash Neuro no focal motor sensory deficits Skin no rash Course Course Course Narrative: RME:?62 yo female here for eval of left thigh pain that began yesterday while lifting a heavy object while she was working. Pain is sharp. Exacerbated with bearing weight. began. denies numbness/tingling/weakness or swelling to the LEs. No history of DVT. Denies chest pain, shortness of breath, low back pain. imaging ordered. Full HPI, ROS and PE to be performed by the primary ED provider. Patient with some pain in the back of her thigh which may be from lifting but she does not recall any acute injury Ultrasound is ordered to make sure this is not a DVT, x-rays of hip were negative X-ray of shoulder is negative, on exam it is likely she strained her shoulder muscle At 19:00 case is signed out to physician speech pathologist assistant Stuart Kellogg pending ultrasound results to make sure there is no DVT and the left thigh Discharge Plan Discharge Clinical Impression: Solorzano cyst Patient Disposition: Home, Self-Care Additional Instructions: the pain in the back of her leg is likely from a small cyst behind your knee called a Solorzano's cyst Ultrasound did not show any blood clot X-rays did not show any bony injuries Follow with primary care doctor or orthopedist if needed Return any time any worse condition or any concerns Prescriptions: New naproxen [Naprosyn] 500 mg tablet 500 mg PO BID PRN (Reason: pain) Qty: 20 0RF No Action cyclobenzaprine 10 mg tablet 10 mg PO Q8H PRN (Reason: Muscle spasm) Qty: 14 0RF ibuprofen 800 mg tablet 800 mg PO Q8H PRN (Reason: pain) Qty: 14 0RF acetaminophen [Tylenol Extra Strength] 500 mg tablet 1,000 mg PO QID PRN (Reason: fever or pain) Qty: 14 0RF lidocaine [Lidoderm] 5 % adhesive patch,medicated 1 patch topical DAILY Qty: 15 0RF Rx Instructions: leave on most painful area for up to 12 hrs. May be substituted meloxicam 15 mg tablet 15 mg PO DAILY Qty: 14 0RF tramadol 50 mg tablet 50 mg PO Q8H PRN (Reason: pain, severe) Qty: 9 0RF acetaminophen [Tylenol Extra Strength] 500 mg tablet 500 mg PO Q6H PRN (Reason: pain or fever) Qty: 20 0RF lidocaine [Lidoderm] 5 % adhesive patch,medicated 1 patch topical DAILY MDD remove after 12 hours PRN (Reason: pain) Qty: 30 0RF Rx Instructions: leave on most painful area for up to 12 hrs naproxen 500 mg tablet 500 mg PO BID PRN (Reason: pain) 10 Days Qty: 20 0RF cyclobenzaprine 5 mg tablet 5 mg PO Q8H PRN (Reason: pain (scale score 7-10)) 5 Days Qty: 14 0RF amoxicillin-pot clavulanate 875-125 mg tablet 1 tab PO BID 7 Days Qty: 14 0RF benzonatate 100 mg capsule 100 mg PO TID PRN (Reason: cough) Qty: 14 0RF albuterol sulfate 90 mcg/actuation HFA aerosol inhaler 2 puff inhalation Q4-6H PRN (Reason: shortness of breath or wheezing) Qty: 6.7 0RF fluticasone propionate [Flonase Allergy Relief] 50 mcg/actuation spray,suspension 2 spray intranasal DAILY Qty: 16 0RF Rx Instructions: administer into each nostril Referrals: Derek Wild MD [Physician] - ( left shoulder and left hip pain) Stand Alone Forms: Work/School Release
[2023-05-29 17:13] VITALS: BP 127/70; PULSE 82; RESP 16; TEMP 36.5; O2SAT 97
[2023-05-29 20:23] VITALS: BP 127/70; PULSE 82; RESP 16; TEMP 36.5; O2SAT 97
== END 2023-05-29 20:33 | disposition home or self-care (01) ==
PROVIDERS: Emergency Provider Emergency Medicine
DX: M71.22 Synovial cyst of popliteal space [Baker], left knee (principal); M25.512 Pain in left shoulder; M79.652 Pain in left thigh
CPT/HCPCS: 73030; 73521; 93971; 99283; 99284

== ENCOUNTER 2023-11-24 11:14 | Outpatient (AMB) | payer OTHER, SELFPAY ==
--- NOTE | 2023-11-24 11:52 | AM.OFFWIN_ITS ---
Intake Vital Signs 11/24/23 11:54 Height 5 ft 1 in Weight 164 lb BMI 31.0 BP 122/80 Blood Pressure Location Lt brachial Position Sitting Pulse 75 Pulse Source Pulse Oximeter Pulse Oximetry (%) 97 Oxygen Delivery Method Room Air Intake Visit Reasons: EP nausea, fatigue Intake Note: Patient here for body aches,nausea and difficulty staying awake which has been present for a couple of weeks. Patient Tobacco Use Status: Former Tobacco user Allergies codeine [CODEINE] Allergy (Unknown, Verified 11/24/23 11:55) HIVES oxycodone [OXYCODONE] Allergy (Unknown, Verified 11/24/23 11:55) HIVES azithromycin [From ZITHROMAX] Adverse Reaction (Intermediate, Verified 11/24/23 11:55) NAUSEA & VOMITING Do you need a note to return to daycare/school/sports/work: No HPI EP nausea, fatigue HPI Details This note is constructed using voice recognition software. While every effort has been made to ensure accuracy, waste removalist errors may have been included. The patient is a 62 year old female who presents to the clinic today with primary complaints of fatigue for the past several weeks to months. She notes that she has also gained about 25 lb over the last couple of months with an increased appetite. She is also concerned that she has a strong odor in her urine intermittently. On further investigation of symptoms, she reports that she was diagnosed with sleep apnea in the past and had been treated and was doing well. She then changed primary care providers and her new provider repeated her sleep apnea test at home and advised her that her sleep apnea was resolved, and subsequently her treatment was discontinued. She is again changing primary care providers and is pending appointment on on December 12. She notes that she wakes up frequently at night, and wakes up in the morning feeling tired. She reports that she is much more tired during the day, nearly falling asleep it work. She reports that she snores, and she has been told that she gasps. She reports that to combat the symptoms she will sleep upright or to the side and she will also attempt to eat good healthy foods. She denies fever, chills, cough, shortness of breath, body aches. [facility] Medical History Asthma Social History Alcohol intake: never Patient Tobacco Use Status: Former Tobacco user Review of Systems Const All systems reviewed & are unremarkable except as noted in HPI and below Physical Exam Vital Signs: Last Vital Signs Pulse 75 11/24/23 11:54 BP 122/80 11/24/23 11:54 Pulse Ox 97 11/24/23 11:54 Oxygen Delivery Method Room Air 11/24/23 11:54 BMI result Body Mass Index 31.0 Const General: cooperative, healthy appearing, comfortable, no acute distress and alert Orientation/consciousness: patient oriented x3 Limitations: no limitations HEENT Head: Yes normal to inspection and Yes normocephalic Ears: hearing grossly normal bilaterally General nose exam: Normal external nose present Face and sinus: Yes normal facial exam and Yes sinuses nontender Mouth: Normal oral and palatal mucosa present and tongue normal Teeth and gingiva: dentition normal and other (Mallampati 3) Throat: Yes posterior oropharynx normal Eyes General: appearance normal, both eyes and all related structures Neck Neck: Yes normal visual inspection, Yes full ROM and Yes no lymphadenopathy Resp Effort & Inspection: normal respiratory effort and able to speak in complete sentences Auscultation: clear to auscultation bilaterally Cardio Jugular venous distension: no JVD Palpation: normal PMI Rate: regular rate Heart sounds: S1 normal heart sound present, S2 normal heart sound present, no click, no gallops, no murmurs and no rubs GI Inspection: Yes normal to inspection Palpation (GI): Soft to palpation and nontender Percussion: Yes normal to percussion Auscultation: normal bowel sounds Skin General skin exam: no rashes or lesions noted, elasticity normal and turgor normal Neuro General: patient oriented x3 Extrem General: Yes normal to inspection, Yes full ROM, Yes capillary refill normal and Yes normal exam except as noted Psych Appearance: grossly normal Mental Status: mental status grossly normal Speech and movement: Normal speech and movement present Affect: normal affect Results AMB Random Glucose (hemocue) AMB Random Glucose (hemocue) 98 mg/dL Last Edit by TYLER Sidhu o n 11/24/23 12:17 AMB Urinalysis, Automated UA Leukoctes 0 Herber/uL Last Edit by TYLER Sidhu on 11/24/23 12:18 UA Nitrite Negative Last Edit by Lucy Liu [facility] on 11/24/23 12:18 UA Urobilinogen 0.2 mg/dL Last Edit by Lucy Liu [facility] on 11/24/23 1 2: 18 UA Protein 0 mg/dL Last Edit by Lucy Liu [facility] on 11/24/23 12:18 UA pH 6.5 Last Edit by Lucy Liu [facility] on 11/24/23 12:18 UA Blood 0 Binu/uL Last Edit by Lucy Liu [facility] on 11/24/23 12:18 UA Specific [place] 1.005 Last Edit by Lucy Liu [facility] on 11/24/23 12:18 UA Ketone Negative Last Edit by Lucy Liu [facility] on 11/24/23 12:18 UA Bilirubin 0 mg/dL Last Edit by Lucy Liu [facility] on 11/24/23 12:18 UA Glucose 0 mg/dL Last Edit by Lucy Liu [facility] on 11/24/23 12:18 Results Reviewed Results Reviewed: Laboratory Last Values Random Glu (Clinic) 98 mg/dL 11/24/23 12:15 Urine pH (Auto) 6.5 11/24/23 12:15 Specific [place] (Auto) 1.005 11/24/23 12:15 Urine Protein (Auto) 0 mg/dL 11/24/23 12:15 Glucose (UA)(Auto) 0 mg/dL 11/24/23 12:15 Urine Ketones (Auto) Negative 11/24/23 12:15 Urine Blood (Auto) 0 Binu/uL 11/24/23 12:15 Urine Nitrite (Auto) Negative 11/24/23 12:15 Urine Bilirubin (Auto) 0 mg/dL 11/24/23 12:15 Urine Urobilinogen (Auto) 0.2 mg/dL 11/24/23 12:15 Leukocyte Esterase (Auto) 0 Herber/uL 11/24/23 12:15 Assessment & Plan Assessment & Plan (1) Fatigue: Code(s): R53.83 - Other fatigue Qualifiers: Fatigue type: chronic, unspecified Qualified Code(s): R53.82 - Chronic fatigue, unspecified Plan: Given patient's multitude of complaints we elected to do a viral swab to rule out coronavirus, however it is unlikely that this will be positive given lack of coordinating symptoms. We also obtain an in office urine due to odor, however there was no concern for urinary tract infection, and patient did not have any additional symptoms to collaborate infection. We also did a glucose which was normal, without any concern of obvious diabetes. Her fatigue is entirely likely to sleep apnea that she was previously diagnosed with. Unfortunately with her gaining weight recently this probably has worsened her symptoms. I advised ongoing use of positional sleeping, and to follow up with her primary care provider in 3 weeks as she is scheduled. She likely will need repeat sleep study and if diagnosed again with sleep apnea will likely need ongoing treatment managed through primary care. Patient agreed with plan and will follow up with her primary care provider. Plan See above for full details and plan. Orders: Orders AMB Random Glucose (hemocue) Today Z13.9 - Encounter for screening, unspecified AMB Urinalysis Automated Today Z13.9 - Encounter for screening, unspecified SARS-CoV2/FLU/RSV Today J06.9 - Acute upper respiratory infection, unspecified Medications: Discontinued cyclobenzaprine Discontinued Reason: No Longer Medically Relevant 5 mg PO Q8H 5 days PRN 14 tabs 0RF pain (scale score 7-10) cyclobenzaprine Discontinued Reason: No Longer Medically Relevant 10 mg PO Q8H PRN 14 tabs 0RF Muscle spasm amoxicillin-pot clavulanate 875-125 mg Discontinued Reason: No Longer Medically Relevant 1 tab PO BID 7 days 14 tabs 0RF benzonatate Discontinued Reason: No Longer Medically Relevant 100 mg PO TID PRN 14 caps 0RF cough Coding Level of Care Code Est Pt Level 4 (59410) Diagnoses Chronic fatigue R53.82 Fatigue type: chronic, unspecified Time Spent (min) 25
[2023-11-24 11:54] VITALS: BP 122/80; PULSE 75; O2SAT 97; BMI 31.0
== END 2023-11-24 12:41 | disposition home or self-care (01) ==
PROVIDERS: Visit Provider Registered Nurse
DX: R53.82 Chronic fatigue, unspecified (principal); Z13.9 Encounter for screening, unspecified

== ENCOUNTER 2023-11-24 11:14 | Outpatient (REF) | payer OTHER, SELFPAY ==
[2023-11-24 14:13] LABS: Influenza A PCR NEGATIVE (Negative); Influenza B PCR NEGATIVE (Negative); Resp Syncy Virus RNA Qual PCR NEGATIVE (Negative); SARS COV2 PCR INHOUSE NEGATIVE (Negative)
== END 2023-11-24 11:15 | disposition home or self-care (01) ==
LOC: HO.LAB 11:14
PROVIDERS: Registered Nurse
DX: J06.9 Acute upper respiratory infection, unspecified (principal); R53.83 Other fatigue; R11.0 Nausea; R82.90 Unspecified abnormal findings in urine
CPT/HCPCS: 0241U; 81003; 82948

== ENCOUNTER 2023-12-13 15:00 | Outpatient (AMB) | payer OTHER, SELFPAY ==
[2023-12-13 15:03] VITALS: BP 120/72; PULSE 84; O2SAT 97; BMI 31.4
--- NOTE | 2023-12-13 15:03 | MHC.PC.OV ---
Vital Signs 12/13/23 15:03 Height 5 ft 1 in Weight 166 lb BMI 31.4 BP 120/72 Blood Pressure Location Lt brachial Position Sitting Pulse 84 Pulse Source Pulse Oximeter Pulse Oximetry (%) 97 Oxygen Delivery Method Room Air Intake Visit Reasons: establish care Forepart Laster Required: No Allergies codeine [CODEINE] Allergy (Unknown, Verified 12/13/23 15:19) HIVES oxycodone [OXYCODONE] Allergy (Unknown, Verified 12/13/23 15:19) HIVES azithromycin [From ZITHROMAX] Adverse Reaction (Intermediate, Verified 12/13/23 15:19) NAUSEA & VOMITING Medication List - Last Reconciled 12/13/23 by Maryann Dumont PA-C albuterol sulfate 90 mcg/actuation 2 puffs inhalation Q4-6H PRN fluticasone propionate 50 mcg/actuation (Flonase Allergy Relief) 2 sprays intranasal DAILY Tobacco use date assessed: 12/13/23 Dental Screening Dental Screen Date: 12/13/23 Did you have a dental visit in the last 12 months?: Yes Did you have a dental problem in the last 6 months where you did not have access to dental care?: No Was dental information given to patient?: Patient has dentist HPI establish care HPI Details 63-year-old female coming to the office for the 1st time. In review of the notes patient was recently seen in walk-in clinic 11/24/2023 for fatigue advised repeat sleep study. Patient has not been seen at least 5 years and was previously a patient of [facility] for primary care. In the last 2 years she has stopped smoking cigarettes and has gained weight as a result. She notes increased depression and anxiety surrounding her recent weight gain. She has a history of severe acid reflux as well as hiatal hernia and was previously being treated with pantoprazole. Colonoscopy was completed 5 years ago and no polyps advised to follow up in 10 years. Mammogram is not up-to-date. 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 1. Little interest or pleasure in doing things: not at all 2. Feeling down, depressed, or hopeless: not at all 3. Trouble falling or staying asleep, or sleeping too much: several days 4. Feeling tired or having little energy: more than half the days 5. Poor appetite or overeating: nearly every day 6. Feeling bad about yourself - or that you are a failure or have let yourself or your family down: not at all 7. Trouble concentrating on things, such as reading the newspaper or watching television: not at all 8. Moving or speaking so slowly that other people could have noticed. Or the opposite - being so fidgety or restless that you have been moving around a lot more than usual: not at all 9. Thoughts that you would be better off or of hurting yourself in some way: not at all Total score: 6 Depression Screening Interpretation: Positive Depression Screening Follow-up: Declines treatment and Other Depression Screening Done: Yes Source: Developed by Drs. Loki Pop, Ilda Downey, Cheng Garcia and colleagues, with an educational maribel from [employer]. Thrive Questionnaire Date Thrive assessed: 12/06/23 I am a: Patient What is your living situation today?: I have a steady place to live Within the past 12 months, did the food you bought not last and you didn't have the money to get more?: Sometimes True Within the past 12 months, did you worry whether your food would run out before you got money to buy more?: Sometimes True Do you have trouble paying for medicines?: No Do you have trouble getting transportation to medical appointments?: No Do you have trouble paying your heating and electricity bill?: No Do you have trouble taking care of your child, family member or friend?: No Do you have trouble with day-to-day activities such as bathing, preparing meals, shopping, managing finances, etc.?: No Are you currently unemployed and looking for a job?: No Are you interested in more education?: No Please select the resources that you would like help with: Food and Utilities Currently or been in a relationship where the following occur: No concerns reported THRIVE Score: 2 AUDIT C Alcohol Use Questionnaire (AUDIT-C) 1. How often do you have a drink containing alcohol?: Never 3. How often do you have six or more drinks on one occasion?: Never Total Score: 0 FERCHO-7 AMB Questionnaire FERCHO-7 Date FERCHO - 7 assessed: 12/13/23 Feeling nervous, anxious, or on edge: 3 = Nearly every day Not being able to stop or control worryin = Not at all Worrying too much about different things: 1 = Several days Trouble relaxin = Not at all Being so restless that it is hard to sit still: 0 = Not at all Becoming easily annoyed or irritable: 0 = Not at all Feeling afraid as if something awful might happen: 0 = Not at all Total FERCHO-7 score (0-4 normal; 5-9 mild; 10-14 moderate; 15-21 severe): 4 Source: Developed by Drs. Loki Pop, Ilda Downey, Cheng Garcia and colleagues, with an educational maribel from [employer]. FERCHO-7 Assessment Billing FERCHO-7 Assessment Tool: FERCHO-7 Assessment 74125 Review of Systems Const Denies body aches, Reports fatigue, Denies fever(s), Denies frequent falls, Denies headache(s) and Denies weakness Eyes Reports no additional complaints and Denies change in vision ENT Denies dysphagia, Denies dizziness, Denies facial pain, Denies headache(s), Denies nasal congestion and Denies odynophagia Card Denies chest pain, Denies syncope, Denies irregular heart rhythm, Denies leg edema, Denies lightheadedness and Denies dyspnea Resp Denies cough and Denies dyspnea GI Denies constipation, Denies dysphagia, Reports dyspepsia, Reports heartburn, Denies diarrhea, Denies nausea, Denies odynophagia and Denies vomiting Denies urinary frequency, Denies dysuria, Denies urinary hesitancy and Denies urinary urgency Musc Denies back pain and Denies myalgias Skin/Breast Reports system reviewed and no additional complaints, except as documented Neuro Denies dizziness, Denies syncope, Denies frequent falls, Denies headache(s) and Denies weakness Psych Reports no additional complaints Endo Reports fatigue Physical exam (Primary Care) Vital Signs: Last Vital Signs Pulse 84 12/13/23 15:03 BP 120/72 12/13/23 15:03 Pulse Ox 97 12/13/23 15:03 Oxygen Delivery Method Room Air 12/13/23 15:03 BMI result Body Mass Index 31.4 Tobacco/Smoking Status: Tobacco use Status Tobacco use date assessed 12/13/23 12/13/23 15:04 Patient Tobacco Use Status Former Tobacco user 12/13/23 15:04 Tobacco use type Cigarette 12/13/23 15:10 PHQ-9: PHQ-9 Score PHQ-9: Total score 6 12/13/23 15:26 Depression Screening Interpretation: Positive Depression Screening Follow-up: Declines treatment and Other Thrive Assessment: Date of Thrive Assessment Date Thrive assessed 12/06/23 12/13/23 15:04 Currently or been in a relationship where the following occur: No concerns reported Const General: cooperative, healthy appearing, comfortable and no acute distress Orientation/consciousness: patient oriented x3 HENMT Head: Yes normocephalic Ears: hearing grossly normal bilaterally General nose exam: Normal external nose present Eyes General: appearance normal, both eyes and all related structures Conjunctivae: conjunctivae normal Neck Neck: Yes full ROM and Yes no lymphadenopathy Resp Effort & Inspection: normal respiratory effort Auscultation: clear to auscultation bilaterally, no crackles, no rales, no rhonchi and no wheezes Cardio Rate: regular rate Rhythm: regular rhythm Skin General skin exam: no rashes or lesions noted Neuro General: patient oriented x3 Gait exam (Neuro): Normal gait present Extrem General: Yes normal to inspection, Yes full ROM and No edema Psych Affect: normal affect Attitude: cooperative Insight: Good insight present (Psych) Judgement: Good judgement present (Psych) Coding Level of Care Code New Pt Level 4 (99254) Diagnoses Asthma J45.909 Hypersomnia G47.10 Obstructive sleep apnea G47.33 GERD (gastroesophageal reflux disease) K21.9 Obesity (BMI 30.0-34.9) E66.811 Additional Codes FERCHO-7 Assessment Billing - FERCHO-7 Assessment Tool: FERCHO-7 Assessment 73593 ([id number]) Assessment & Plan Assessment & Plan (1) Asthma: Code(s): J45.909 - Unspecified asthma, uncomplicated Category: Medical Plan: Presently on albuterol as needed previously had Singulair and inhaled corticosteroid as part of her daily regimen however this is no longer needed at this time. Continue to use albuterol as needed and given Zyrtec for daily use. If you began to need your albuterol multiple times per week please reach out to the office for re-evaluation. (2) Hypersomnia: Code(s): G47.10 - Hypersomnia, unspecified Category: Medical Plan: Patient notes being extremely fatigued and does have a history of obstructive sleep apnea. She was previously on CPAP and found good relief from this however a provider told her it was no longer needed and she was discontinued from this therapy. She would like to be re-evaluated for obstructive sleep apnea. Referral for sleep study placed today. (3) Obstructive sleep apnea: Code(s): G47.33 - Obstructive sleep apnea (adult) (pediatric) Category: Medical Plan: Referral for a sleep study placed today. (4) GERD (gastroesophageal reflux disease): Code(s): K21.9 - Gastro-esophageal reflux disease without esophagitis Category: Medical Plan: Patient has a history of severe acid reflux along with hiatal hernia and was previously on pantoprazole with good relief. She has had endoscopy for further evaluation and we will request these results. Avoid trigger foods such as citrus, tomato products, soda, caffeine, spicy foods and other foods that may be irritating to your stomach. Avoid laying flat 3-4 hours after eating and elevate the head of the bed 30 degrees to prevent acid from moving into the esophagus. (5) Obesity (BMI 30.0-34.9): Code(s): E66.811 - Obesity, class 1 Category: Medical Plan: Advised healthy diet and regular exercise. We will trial Wegovy for weight loss. Blood work ordered and follow up in 3 months. Plan Routine blood work ordered to be drawn prior to initiating Wegovy. Follow up in 3 months for annual physical exam. This note was constructed using voice recognition software. While every effort has been made to ensure accuracy and director of business development, still areas may have been included sometimes these areas may affect the content or meeting of the given symptoms. Total time spent caring for the patient today was 30 minutes. This includes time spent before the visit reviewing the chart, time spent during the visit, and time spent after the visit and documentation. Orders: Orders Complete Blood Count Auto Diff Today Z00.00 - Encounter for general adult medical examination without abnormal findings Free T4 (Free Thyroxine) Today Z00.00 - Encounter for general adult medical examination without abnormal findings Lipid Panel Today Z00.00 - Encounter for general adult medical examination without abnormal findings Vitamin B12 and Folate Today Z00.00 - Encounter for general adult medical examination without abnormal findings Vitamin D 25-OH (D2 and D3) Today Z00.00 - Encounter for general adult medical examination without abnormal findings RT home sleep study Today G47.10 - Hypersomnia, unspecified, G47.33 - Obstructive sleep apnea (adult) (pediatric) Comprehensive Met. Panel Today Z00.00 - Encounter for general adult medical examination without abnormal findings Hemoglobin A1c Today Z00.00 - Encounter for general adult medical examination without abnormal findings TSH reflex Free T4 Today Z00.00 - Encounter for general adult medical examination without abnormal findings UA CC w/rflx Micro + Cult Today R35.89 - Other polyuria MM tomosynthesis screening BI Today Z12.31 - Encounter for screening mammogram for malignant neoplasm of breast Medications: New cetirizine (All Day Allergy (cetirizine)) 10 mg PO DAILY PRN 30 tabs 0RF allergy symptoms semaglutide (weight loss) (Kevan) administer weeks 1 through 4 of therapy 0.25 mg (0.5 mL) subcut QWEEK 2 mL 0RF pantoprazole 20 mg PO DAILY 90 tabs 1RF Refilled albuterol sulfate 90 mcg/actuation 2 puffs inhalation Q4-6H PRN 6.7 grams 0RF shortness of breath or wheezing
== END 2023-12-13 15:50 | disposition home or self-care (01) ==
DX: J45.909 Unspecified asthma, uncomplicated (principal); G47.10 Hypersomnia, unspecified; G47.33 Obstructive sleep apnea (adult) (pediatric); K21.9 Gastro-esophageal reflux disease without esophagitis; E66.811 Obesity, class 1

== ENCOUNTER → 2023-12-13 15:00 | Outpatient (BNVA) | payer OTHER, SELFPAY | DX: J45.909 Unspecified asthma, uncomplicated (principal); G47.10 Hypersomnia, unspecified; G47.33 Obstructive sleep apnea (adult) (pediatric); K21.9 Gastro-esophageal reflux disease without esophagitis; E66.811 Obesity, class 1; Z68.31 Body mass index [BMI] 31.0-31.9, adult; Z87.891 Personal history of nicotine dependence | CPT/HCPCS: 96127 ==

== ENCOUNTER 2023-12-14 07:02 | Outpatient (REF) | payer OTHER, SELFPAY ==
[2023-12-14 07:18] LABS: MANUAL DIFF FLAG NO
[2023-12-14 07:43] LABS: Basophils Absolute Auto 0.1 X10*3/uL (0.0-0.2); Eosinophils Absolute Auto 0.2 X10*3/uL (0.0-0.4); Eosinophils Percent Auto 2.1 % (0-4); Hematocrit 38.7 % (37.0-47.0); Hemoglobin 12.9 g/dl (12.0-16.0); Imm Gran Abs Auto 0.09 X10*3/uL (0.00-0.03); Imm Gran Pct Auto 1.3 % (0.0-0.4); Lymphocytes Absolute Auto 2.2 X10*3/uL (1.2-4.9); Lymphocytes Percent Auto 30.8 % (20-40); Mean Corpuscular HGB Conc 33.3 g/dl (31.0-35.0); Mean Corpuscular Hemoglobin 30.8 pg (27.0-33.0); Mean Corpuscular Volume 92.4 fL (80.0-98.0); Monocytes Absolute Auto 0.5 X10*3/uL (0.1-1.2); Monocytes Percent Auto 7.6 % (2-11); Neutrophils Percent Auto 57.2 % (45-73); Platelet Count 231 X10*3/uL (160-400); Red Blood Count 4.19 X10*6/uL (4.20-5.50); Red Cell Distribution Width 13.2 % (11.0-16.0)
[2023-12-14 07:49] LABS: Estimated Average Glucose 117 mg/dL; Hemoglobin A1C 131.2473 umol/L; Hemoglobin A1c % 5.7 % (<6.0); Total Hemoglobin (HGBA1C) 3361.0553 umol/L
[2023-12-14 07:51] LABS: Appearance Urine Clear; Color Urine Yellow; Glucose Urine UA Negative (Negative); Leukocyte Esterase Urine Negative (Negative); Nitrite Urine Negative (Negative); PH 5.5 (5.0-9.0); Urine Blood Negative (Negative); Urine Ketones Negative (Negative); Urine Protein Negative (Neg-Trace)
[2023-12-14 08:14] LABS: Alanine Aminotransferase 17 U/L (0-31); Albumin Level 4.1 g/dL (3.5-5.0); Alkaline Phosphatase 68 U/L (39-117); Anion Gap 13 (12-20); Aspartate Amino Transferase 15 U/L (5-31); Bilirubin Total 0.5 mg/dL (0.0-1.0); Blood Urea Nitrogen 18 mg/dL (9-16); Calcium 9.1 mg/dL (8.4-10.2); Carbon Dioxide 27 mmol/L (22-29); Chloride 108 mmol/L (96-108); Cholesterol 206 mg/dL (<200); Estimated Glomerular Filt Rate > 60; Glucose Random 120 mg/dL (60-115); HDL Cholesterol 42 mg/dL (>40); LDL Cholesterol Calculated 135 mg/dL (<100); Potassium 4.3 mmol/L (3.3-5.1); Sodium 144 mmol/L (135-145); Total Protein 6.9 g/dL (6.5-8.0); Triglycerides 145 mg/dL (<150)
[2023-12-14 08:24] LABS: Free T4 (Free Thyroxine) 0.94 ng/dL (0.71-1.85); TSH reflex Free T4 1.87 uIU/mL (0.32-4.0)
[2023-12-14 09:08] LABS: Folate 9.8 ng/mL (> or = 4.0); Vitamin B12 244 pg/mL (200-900)
[2023-12-18 16:23] LABS: Vitamin D 25-OH, D2 <4 ng/mL; Vitamin D 25-OH, D3 9 ng/mL; Vitamin D 25-OH, Total 9 ng/mL (30-100)
== END 2023-12-14 07:03 | disposition home or self-care (01) ==
LOC: HO.LAB 07:02
DX: Z00.00 Encounter for general adult medical examination without abnormal findings (principal); R35.89 Other polyuria; Z13.1 Encounter for screening for diabetes mellitus
CPT/HCPCS: 36415; 80053; 80061; 81003; 82306; 82607; 82746; 83036; 84439; 84443; 85025

== ENCOUNTER 2024-01-10 14:50 | Outpatient (AMB) | payer OTHER, SELFPAY ==
[2024-01-10 14:53] VITALS: BP 122/70; PULSE 86; O2SAT 99; BMI 30.6
--- NOTE | 2024-01-10 14:53 | A.OFFPC_ITS ---
Vital Signs 01/10/24 14:53 Height 5 ft 1 in Weight 162 lb BMI 30.6 BP 122/70 Blood Pressure Location Lt brachial Position Sitting Pulse 86 Pulse Source Pulse Oximeter Pulse Oximetry (%) 99 Oxygen Delivery Method Room Air Intake Visit Reasons: Bilateral leg pain Intake Note: pt c/o of bilateral leg swelling and some pain. Allergies codeine [CODEINE] Allergy (Unknown, Verified 01/10/24 14:59) HIVES oxycodone [OXYCODONE] Allergy (Unknown, Verified 01/10/24 14:59) HIVES azithromycin [From ZITHROMAX] Adverse Reaction (Intermediate, Verified 01/10/24 14:59) NAUSEA & VOMITING Medication List - Last Reconciled 01/10/24 by Maryann Dumont PA-C albuterol sulfate 90 mcg/actuation 2 puffs inhalation Q4-6H PRN cetirizine (All Day Allergy (cetirizine)) 10 mg PO DAILY PRN cholecalciferol (vitamin D3) 25 mcg PO DAILY fluticasone propionate 50 mcg/actuation (Flonase Allergy Relief) 2 sprays intranasal DAILY pantoprazole 20 mg PO DAILY semaglutide (weight loss) (Wegovy) 0.25 mg (0.5 mL) subcut QWEEK Tobacco use date assessed: 12/13/23 Dental Screening Dental Screen Date: 12/13/23 HPI Bilateral leg pain HPI Details 63-year-old female with past medical his tory of obesity, obstructive sleep apnea, asthma, GERD last seen 12/13/2023 coming in for acute problem. Patient states she has been having bilateral lower leg pain and heaviness for several months. She does have a history of left knee osteoarthritis and bilateral plantar fasciitis and has previously received injections for plantar fasciitis. 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 Cognitive needs: No Hearing needs: No Vision needs: No Questionnaire Thrive Questionnaire Date Thrive assessed: 12/06/23 I am a: Patient What is your living situation today?: I have a steady place to live Within the past 12 months, did the food you bought not last and you didn't have the money to get more?: Sometimes True Within the past 12 months, did you worry whether your food would run out before you got money to buy more?: Sometimes True Do you have trouble paying for medicines?: No Do you have trouble getting transportation to medical appointments?: No Do you have trouble paying your heating and electricity bill?: No Do you have trouble taking care of your child, family member or friend?: No Do you have trouble with day-to-day activities such as bathing, preparing meals, shopping, managing finances, etc.?: No Are you currently unemployed and looking for a job?: No Are you interested in more education?: No Currently or been in a relationship where the following occur: No concerns reported THRIVE Score: 2 AUDIT C Alcohol Use Questionnaire (AUDIT-C) 1. How often do you have a drink containing alcohol?: Never 3. How often do you have six or more drinks on one occasion?: Never Total Score: 0 FERCHO-7 AMB Questionnaire FERCHO-7 Date FERCHO - 7 assessed: 12/13/23 Source: Developed by Drs. Loki Pop, Ilda Downey, Cheng Garcia and colleagues, with an educational maribel from [employer]. Review of Systems Const Denies body aches, Denies chills and Denies fever(s) Eyes Reports no additional complaints ENT Reports no additional complaints Card Denies chest pain and Denies dyspnea Resp Denies dyspnea Reports no additional complaints Musc Reports as per HPI Skin/Breast Reports system reviewed and no additional complaints, except as documented Neuro Reports no additional complaints Physical exam (Primary Care) Vital Signs: Last Vital Signs Pulse 86 01/10/24 14:53 BP 122/70 01/10/24 14:53 Pulse Ox 99 01/10/24 14:53 Oxygen Delivery Method Room Air 01/10/24 14:53 BMI result Body Mass Index 30.6 Tobacco/Smoking Status: Tobacco use Status Tobacco use date assessed 12/13/23 01/10/24 14:54 Patient Tobacco Use Status Former Tobacco user 01/10/24 14:54 Tobacco use type Cigarette 01/10/24 14:54 Thrive Assessment: Date of Thrive Assessment Date Thrive assessed 12/06/23 01/10/24 14:54 Currently or been in a relationship where the following occur: No concerns reported Const General: cooperative, healthy appearing, comfortable and no acute distress Orientation/consciousness: patient oriented x3 HENMT Head: Yes normocephalic Ears: hearing grossly normal bilaterally General nose exam: Normal external nose present Eyes General: appearance normal, both eyes and all related structures Conjunctivae: conjunctivae normal Neck Neck: Yes full ROM and Yes no lymphadenopathy Resp Effort & Inspection: normal respiratory effort Auscultation: clear to auscultation bilaterally, no crackles, no rales, no rhonchi and no wheezes Cardio Rate: regular rate Rhythm: regular rhythm Skin General skin exam: no rashes or lesions noted Neuro General: patient oriented x3 Gait exam (Neuro): Normal gait present Extrem Other: No tenderness to palpation of bilateral calves, no swelling, erythema or warmth of bilateral calves. Pain to palpation of medial aspect of left knee. General: Yes normal to inspection, Yes full ROM and No edema Psych Affect: normal affect Attitude: cooperative Insight: Good insight present (Psych) Judgement: Good judgement present (Psych) Coding Level of Care Code Est Pt Level 3 (19858) Diagnoses Plantar fasciitis M72.2 Obesity (BMI 30.0-34.9) E66.811 GERD (gastroesophageal reflux disease) K21.9 Venous insufficiency I87.2 Assessment & Plan Assessment & Plan (1) Plantar fasciitis: Code(s): M72.2 - Plantar fascial fibromatosis Category: Medical Plan: Referral placed for Podiatry for repeat cortisone injections. (2) Obesity (BMI 30.0-34.9): Code(s): E66.811 - Obesity, class 1 Category: Medical Plan: Healthy diet and regular exercise is encouraged. (3) GERD (gastroesophageal reflux disease): Code(s): K21.9 - Gastro-esophageal reflux disease without esophagitis Category: Medical Plan: Avoid trigger foods such as citrus, tomato products, soda, caffeine, spicy foods and other foods that may be irritating to your stomach. Avoid laying flat 3-4 hours after eating and elevate the head of the bed 30 degrees to prevent acid from moving into the esophagus. Continue on pantoprazole (4) Venous insufficiency: Code(s): I87.2 - Venous insufficiency (chronic) (peripheral) Category: Medical Plan: Patient's symptoms most consistent with venous insufficiency. Low suspicion for DVT is there is no calf swelling, redness or warmth. She describes the pain as an ache that is worse throughout the day. Advised to elevate the legs when possible, use compression stockings and exercise as tolerated. Plan This note was constructed using voice recognition software. While every effort has been made to ensure accuracy and upper leather cutter, still areas may have been included sometimes these areas may affect the content or meeting of the given symptoms. Total time spent caring for the patient today was 30 minutes. This includes time spent before the visit reviewing the chart, time spent during the visit, and time spent after the visit and documentation. Orders: Orders RT PSG in-lab sleep study Today G47.10 - Hypersomnia, unspecified Referrals Podiatry Referral M72.2 - Plantar fascial fibromatosis Medications: New diclofenac sodium 1% (Arthritis Pain (diclofenac)) apply to single elbow, wrist or hand; for hand includes palm/fingers/back of hand 2 grams topical QID 100 grams 0RF
== END 2024-01-10 15:47 | disposition home or self-care (01) ==
LOC: HO.HMCH 14:51
DX: M72.2 Plantar fascial fibromatosis (principal); E66.811 Obesity, class 1; K21.9 Gastro-esophageal reflux disease without esophagitis; Z68.30 Body mass index [BMI] 30.0-30.9, adult; I87.2 Venous insufficiency (chronic) (peripheral)

== ENCOUNTER 2024-03-14 14:49 | Outpatient (AMB) | payer OTHER, SELFPAY ==
--- NOTE | 2024-03-14 15:04 | A.OFFPC_ITS ---
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: No Accompanied by: Self / Same As Patient Allergies codeine [CODEINE] Allergy (Unknown, Verified 03/14/24 15:07) HIVES oxycodone [OXYCODONE] Allergy (Unknown, Verified 03/14/24 15:07) HIVES azithromycin [From ZITHROMAX] Adverse Reaction (Intermediate, Verified 03/14/24 15:07) NAUSEA & VOMITING Medication List - Last Reconciled 03/14/24 by Maryann Dumont PA-C albuterol sulfate 90 mcg/actuation 2 puffs inhalation Q4-6H PRN cetirizine (All Day Allergy (cetirizine)) 10 mg PO DAILY PRN cholecalciferol (vitamin D3) 25 mcg PO DAILY diclofenac sodium 1% (Arthritis Pain (diclofenac)) 2 grams topical QID fluticasone propionate 50 mcg/actuation (Flonase Allergy Relief) 2 sprays intranasal DAILY pantoprazole 20 mg PO DAILY semaglutide (weight loss) (Wegovy) 0.25 mg (0.5 mL) subcut QWEEK Tobacco use date assessed: 03/14/24 Dental Screening Dental Screen Date: 03/14/24 Did you have a dental visit in the last 12 months?: Yes Did you have a dental problem in the last 6 months where you did not have access to dental care?: No Was dental information given to patient?: Patient has dentist HPI annual exam HPI Details 63-year-old female with past medical his tory of obesity, obstructive sleep apnea, asthma, GERD last seen 01/2024 coming in for acute problem. No showed mammo and sleep study. Patient tells us for the last 2 days she has been having a cough throughout the day. She has been using her nebulizer with good benefit however states she continues to have a cough and stuffy nose and has now been losing her voice. More recently she has been having rib pain with coughing bilaterally. 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 1. Little interest or pleasure in doing things: not at all 2. Feeling down, depressed, or hopeless: not at all 3. Trouble falling or staying asleep, or sleeping too much: several days 4. Feeling tired or having little energy: more than half the days 5. Poor appetite or overeating: nearly every day 6. Feeling bad about yourself - or that you are a failure or have let yourself or your family down: not at all 7. Trouble concentrating on things, such as reading the newspaper or watching television: not at all 8. Moving or speaking so slowly that other people could have noticed. Or the opposite - being so fidgety or restless that you have been moving around a lot more than usual: not at all 9. Thoughts that you would be better off or of hurting yourself in some way: not at all Total score: 6 Source: Developed by Drs. Loki Pop, Ilad Downey, Cheng Garcia and colleagues, with an educational maribel from [employer] ([employer] Thrive Questionnaire Date Thrive assessed: 03/14/24 I am a: Patient What is your living situation today?: I have a steady place to live Within the past 12 months, did the food you bought not last and you didn't have the money to get more?: Sometimes True Within the past 12 months, did you worry whether your food would run out before you got money to buy more?: I choose not to answer this question Do you have trouble paying for medicines?: No Do you have trouble getting transportation to medical appointments?: No Do you have trouble paying your heating and electricity bill?: I choose not to answer this question Do you have trouble taking care of your child, family member or friend?: No Do you have trouble with day-to-day activities such as bathing, preparing meals, shopping, managing finances, etc.?: No Are you currently unemployed and looking for a job?: No Are you interested in more education?: No Please select the resources that you would like help with: None THRIVE Score: 1 AUDIT C Alcohol Use Questionnaire (AUDIT-C) 1. How often do you have a drink containing alcohol?: Never 3. How often do you have six or more drinks on one occasion?: Never Total Score: 0 FERCHO-7 AMB Questionnaire FERCHO-7 Date FERCHO - 7 assessed: 03/14/24 Feeling nervous, anxious, or on edge: 0 = Not at all Not being able to stop or control worryin = Not at all Worrying too much about different things: 0 = Not at all Trouble relaxin = Not at all Being so restless that it is hard to sit still: 0 = Not at all Becoming easily annoyed or irritable: 0 = Not at all Feeling afraid as if something awful might happen: 0 = Not at all Total FERCHO-7 score (0-4 normal; 5-9 mild; 10-14 moderate; 15-21 severe): 0 Source: Developed by Drs. Loki Pop, Ilda Downey, Cheng Garcia and colleagues, with an educational maribel from [employer] ([employer] Review of Systems Const Reports body aches, Reports fatigue, Denies fever(s), Denies frequent falls, Denies headache(s) and Denies weakness Eyes Reports no additional complaints and Denies change in vision ENT Denies dizziness, Denies facial pain, Denies headache(s), Reports nasal congesti on, Reports nasal discharge and Denies sore throat Card Denies chest pain, Denies lightheadedness and Denies dyspnea Resp Reports cough, Denies hemoptysis, Denies excessive phlegm production and Denies dyspnea GI Denies abdominal pain, Denies nausea and Denies vomiting Denies urinary frequency, Denies dysuria, Denies urinary hesitancy and Denies urinary urgency Musc Denies back pain and Denies myalgias Skin/Breast Reports system reviewed and no additional complaints, except as documented Neuro Denies dizziness, Denies frequent falls, Denies headache(s) and Denies weakness Psych Reports no additional complaints Endo Reports fatigue Physical exam (Primary Care) Vital Signs: Last Vital Signs Pulse 91 01/08/25 15:06 BP 130/80 03/14/24 15:06 Pulse Ox 99 03/14/24 15:06 Oxygen Delivery Method Room Air 03/14/24 15:06 BMI result Body Mass Index 31.7 Tobacco/Smoking Status: Tobacco use Status Tobacco use date assessed 03/14/24 03/14/24 15:10 Patient Tobacco Use Status Former Tobacco user 03/14/24 15:10 Tobacco use type Cigarette 03/14/24 15:10 e-Cigarette/Vaping Use Never Used 03/14/24 15:10 PHQ-9: PHQ-9 Score PHQ-9: Total score 6 03/14/24 15:10 Thrive Assessment: Date of Thrive Assessment Date Thrive assessed 03/14/24 03/14/24 15:10 Const General: cooperative, healthy appearing, comfortable and no acute distress Orientation/consciousness: patient oriented x3 HENMT Head: Yes normocephalic Ears: hearing grossly normal bilaterally General nose exam: Normal external nose present Eyes General: appearance normal, both eyes and all related structures Conjunctivae: conjunctivae normal Neck Neck: Yes full ROM and Yes no lymphadenopathy Resp Effort & Inspection: normal respiratory effort Auscultation: clear to auscultation bilaterally, no crackles, no rales, no rhonchi and no wheezes Cardio Rate: regular rate Rhythm: regular rhythm Skin General skin exam: no rashes or lesions noted Neuro General: patient oriented x3 Gait exam (Neuro): Normal gait present Extrem General: Yes normal to inspection, Yes full ROM and No edema Psych Affect: normal affect Attitude: cooperative Insight: Good insight present (Psych) Judgement: Good judgement present (Psych) Coding Level of Care Code Est Pt Level 3 (57303) Diagnoses Hypercholesterolemia E78.00 Obesity (BMI 30.0-34.9) E66.811 GERD (gastroesophageal reflux disease) K21.9 Hypersomnia G47.10 Asthma J45.909 Cough R05.9 Assessment & Plan Assessment & Plan (1) Hypercholesterolemia: Code(s): E78.00 - Pure hypercholesterolemia, unspecified Category: Medical Plan: Avoid foods that are high in cholesterol such as red meat, fried foods, eggs and baked goods. Triglyceride goal of less than 150 and LDL goal of less than 130. Not currently on medical management (2) Obesity (BMI 30.0-34.9): Code(s): E66.811 - Obesity, class 1 Category: Medical Plan: Healthy diet and regular exercise is encouraged. Resubmitted the semaglutide 0.25 mg. (3) GERD (gastroesophageal reflux disease): Code(s): K21.9 - Gastro-esophageal reflux disease without esophagitis Category: Medical Plan: Avoid trigger foods such as citrus, tomato products, soda, caffeine, spicy foods and other foods that may be irritating to your stomach. Avoid laying flat 3-4 hours after eating and elevate the head of the bed 30 degrees to prevent acid from moving into the esophagus. Continue on pantoprazole 20 (4) Hypersomnia: Code(s): G47.10 - Hypersomnia, unspecified Category: Medical Plan: Ordered for sleep study which has not yet been completed. Reminded patient about sleep study. (5) Asthma: Code(s): J45.909 - Unspecified asthma, uncomplicated Category: Medical Plan: Asthma currently controlled on present medications. Continue on albuterol as needed. Avoid triggers such as allergies. (6) Cough: Code(s): R05.9 - Cough, unspecified Category: Medical Plan: Patient complaining of cough, stuffy nose, chills and body aches the last 2 days. Denies any sick contacts. Cough is dry and nonproductive but is began having rib pain from the coughing. We will send benzonatate for cough and refilled albuterol inhaler. Lungs are clear on exam no indication for chest x- ray at this time. Ordered for viral testing. We will reschedule annual exam. Plan This note was constructed using voice recognition software. While every effort has been made to ensure accuracy and long term acute care registered nurse, still areas may have been included sometimes these areas may affect the content or meeting of the given symptoms. Total time spent caring for the patient today was 30 minutes. This includes time spent before the visit reviewing the chart, time spent during the visit, and time spent after the visit and documentation. Orders: Orders SARS-CoV2/FLU/RSV Today R05.9 - Cough, unspecified Medications: New benzonatate 100 mg PO BID PRN 20 caps 0RF cough semaglutide for 4 weeks 0.25 mg (0.368 mL) subcut QWEEK 3 mL 0RF Refilled albuterol sulfate 90 mcg/actuation 2 puffs inhalation Q4-6H PRN 6.7 grams 0RF shortness of breath or wheezing Discontinued semaglutide (weight loss) (Kevan) administer weeks 1 through 4 of therapy Discontinued Reason: Patient no longer taking 0.25 mg (0.5 mL) subcut QWEEK 2 mL 0RF E66.811 - Obesity, class 1, E78.00 - Pure hypercholesterolemia, unspecified, G47.33 - Obstructive sleep apnea (adult) (pediatric)
[2024-03-14 15:06] VITALS: BP 130/80; PULSE 91; O2SAT 99; BMI 31.7
== END 2024-03-14 15:31 | disposition home or self-care (01) ==
DX: E78.00 Pure hypercholesterolemia, unspecified (principal); E66.811 Obesity, class 1; G47.10 Hypersomnia, unspecified; Z68.31 Body mass index [BMI] 31.0-31.9, adult; K21.9 Gastro-esophageal reflux disease without esophagitis; J45.909 Unspecified asthma, uncomplicated; R05.9 Cough, unspecified

== ENCOUNTER 2024-03-14 14:49 | Outpatient (REF) | payer OTHER, SELFPAY ==
[2024-03-14 17:14] LABS: Influenza A PCR NEGATIVE (Negative); Influenza B PCR NEGATIVE (Negative); Resp Syncy Virus RNA Qual PCR POSITIVE (Negative); SARS COV2 PCR INHOUSE NEGATIVE (Negative)
== END 2024-03-14 14:50 | disposition home or self-care (01) ==
LOC: HO.LAB 14:49
DX: E78.00 Pure hypercholesterolemia, unspecified (principal); E66.811 Obesity, class 1; K21.9 Gastro-esophageal reflux disease without esophagitis; G47.10 Hypersomnia, unspecified; J45.909 Unspecified asthma, uncomplicated; R05.9 Cough, unspecified; Z79.899 Other long term (current) drug therapy
CPT/HCPCS: 0241U; 96127

== ENCOUNTER → 2024-03-15 10:29 | Outpatient (BNV) | payer OTHER, SELFPAY | PROVIDERS: Visit Provider Radiology Diagnostic Radiology | DX: R05.9 Cough, unspecified (principal) | CPT/HCPCS: 71046 ==

== ENCOUNTER → 2024-03-15 13:23 | Outpatient (BNV) | payer OTHER, SELFPAY | PROVIDERS: Emergency Provider Emergency Medicine; Visit Provider Internal Medicine | DX: R07.9 Chest pain, unspecified (principal); I49.1 Atrial premature depolarization | CPT/HCPCS: 93010 ==

== ENCOUNTER 2024-03-23 09:52 | Outpatient (AMB) | payer OTHER, SELFPAY ==
--- NOTE | 2024-03-23 10:35 | MHC.OFFWIV ---
Intake Vital Signs 03/23/24 10:36 Height 5 ft 1 in BP 122/70 Blood Pressure Location Lt brachial Position Sitting Pulse 92 Pulse Source Pulse Oximeter Temp 98.0 F Temp Source Oral Pulse Oximetry (%) 97 Oxygen Delivery Method Room Air Intake Visit Reasons: EP-lower/mid back rt side pain Intake Note: Pt is here today for a walk in visit. Pt c/o R side lower back pain. Patient Tobacco Use Status: Former Tobacco user Allergies codeine [CODEINE] Allergy (Unknown, Verified 03/23/24 10:38) HIVES oxycodone [OXYCODONE] Allergy (Unknown, Verified 03/23/24 10:38) HIVES azithromycin [From ZITHROMAX] Adverse Reaction (Intermediate, Verified 03/23/24 10:38) NAUSEA & VOMITING HPI EP-lower/mid back rt side pain HPI Details This is a 63-year-old female patient who presents to the walk-in clinic today with right-sided or back pain. States that she recently had an upper respiratory virus, and was coughing for multiple days. She feels like she strained a muscle in her lower back on that right side. Denies any urinary symptoms. Denies any injuries or recent lifting. Denies any clicking or popping in her back. Denies any radiation of pain to her legs. States it feels aching and tight on her lower right side. 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 Cognitive needs: No Hearing needs: No Vision needs: No Review of Systems Const All systems reviewed & are unremarkable except as noted in HPI and below Physical Exam Vital Signs: Last Vital Signs Temp 98.0 F 03/23/24 10:36 Pulse 92 03/23/24 10:36 BP 122/70 03/23/24 10:36 Pulse Ox 97 03/23/24 10:36 Oxygen Delivery Method Room Air 03/23/24 10:36 Const General: cooperative, healthy appearing and no acute distress Limitations: no limitations HEENT Head: Yes normal to inspection Resp Effort & Inspection: normal respiratory effort Auscultation: clear to auscultation bilaterally Cardio Rate: regular rate Rhythm: regular rhythm General: Yes no CVA tenderness Back/Spine/Pelvis Other: no vertebral tenderness Back: no CVA tenderness Cervical Spine: cervical ROM normal Thoracic/Lumbar Spine: thoracic and lumbar spine normal to inspection, thoraco-lumbar ROM normal, pain with thoraco-lumbar ROM (r/s pain with side bending/lat rotation) and paraspinal muscle tenderness on the right in the mid lumbar Pelvis: no pain with anterior-posterior compression Skin General skin exam: no rashes or lesions noted Extrem General: Yes capillary refill normal and Yes no clubbing, cyanosis or edema Psych Appearance: grossly normal Mental Status: mental status grossly normal Speech and movement: Normal speech and movement present Results AMB Urinalysis, Automated UA Leukoctes 0 Herber/uL Last Edit by Amina Vazquez Birgit on 03/23/24 10:50 UA Nitrite Negative Last Edit by Amina Vazquez ON LICENSE OF [facility] on 03/23/24 10:50 UA Urobilinogen 0.2 mg/dL Last Edit by Amina Vazquez ON LICENSE OF [facility] on 03/23/24 10:50 UA Protein 0 mg/dL Last Edit by Amina Vazquez ON LICENSE OF [facility] on 03/23/24 10:50 UA pH 6.0 Last Edit by Amina Vazquez ON LICENSE OF [facility] on 03/23/24 10:50 UA Blood 0 Binu/uL Last Edit by Amina Vazquez ON LICENSE OF [facility] on 03/23/24 10:50 UA Specific [place] 1.020 Last Edit by Amina Vazquez ON LICENSE OF [facility] on 03/23/24 10:50 UA Ketone Negative Last Edit by MAYRA Don on 03/23/24 10:50 UA Bilirubin 0 mg/dL Last Edit by Amina Vazquez ON LICENSE OF [facility] on 03/23/24 10:50 UA Glucose 0 mg/dL Last Edit by Amina Vazquez ON LICENSE OF [facility] on 03/23/24 10:50 Assessment & Plan Assessment & Plan (1) Strain of lumbar paraspinal muscle: Code(s): S39.012A - Strain of muscle, fascia and tendon of lower back, initial encounter Qualifiers: Encounter type: initial encounter Qualified Code(s): S39.012A - Strain of muscle, fascia and tendon of lower back, initial encounter Plan: Presentation/exam consistent with right lumbar paraspinal muscle strain. No vertebral tenderness. No radiculopathy. Urine dip was normal. Advised NSAIDs and will try a short course of muscle relaxer at bedtime. Also recommended gentle stretching and heat application. We reviewed indications, use, possible side effects of medications. If she does not improve with treatment, or if symptoms worsen, she should return to the clinic for further evaluation. She verbalizes understanding and agrees to plan. Orders: Orders AMB Urinalysis Automated Today Z13.9 - Encounter for screening, unspecified Medications: New meloxicam Take 1 tablet daily for 7 days. 15 mg PO DAILY 7 days 7 tabs 0RF S39.012A - Strain of muscle, fascia and tendon of lower back, initial encounter cyclobenzaprine Take 1 tablet by mouth at bedtime as needed for 5 days. 10 mg PO BEDTIME 5 days PRN 5 tabs 0RF muscle spasm S39.012A - Strain of muscle, fascia and tendon of lower back, initial encounter Coding Level of Care Code Est Pt Level 4 (09148) Diagnoses Strain of lumbar paraspinous muscle, initial encounter S39.012A Encounter type: initial encounter
[2024-03-23 10:36] VITALS: BP 122/70; PULSE 92; TEMP 36.7; O2SAT 97
== END 2024-03-23 11:17 | disposition home or self-care (01) ==
PROVIDERS: Visit Provider Nurse Practitioner Family
DX: S39.012A Strain of muscle, fascia and tendon of lower back, initial encounter (principal); Z13.9 Encounter for screening, unspecified

== ENCOUNTER → 2024-03-23 09:52 | Outpatient (BNVA) | payer OTHER, SELFPAY | DX: S39.012A Strain of muscle, fascia and tendon of lower back, initial encounter (principal); X58.XXXA Exposure to other specified factors, initial encounter; Y93.9 Activity, unspecified; Y92.9 Unspecified place or not applicable; Y99.9 Unspecified external cause status | CPT/HCPCS: 81003 ==

== ENCOUNTER 2024-04-24 14:39 | Outpatient (AMB) | payer OTHER, SELFPAY ==
--- NOTE | 2024-04-24 14:42 | A.OFFPC_ITS ---
<Statement entered by Yoana Delgado LPN - 04/24/24 16:15> Patient had Ozempic teaching during ov. Reviewed storage, disposal, dosage, and administration. Reviewed aseptic techniques, rotation of injection site, s/sx infection Demonstrated how to apply needle, set dosage and administration of injection. Patient returned demonstration and self injection to left lower abd. Patient will call office if needed. Vital Signs 04/24/24 14:44 Height 5 ft 1 in Weight 162 lb 6 oz BMI 30.7 BP 130/60 Blood Pressure Location Lt brachial Position Sitting Pulse 93 Pulse Source Pulse Oximeter Temp 97.3 F Temp Source Temporal Artery Scan Pulse Oximetry (%) 98 Oxygen Delivery Method Room Air Intake Visit Reasons: PE annual Intake Note: Patient is here today for a physical. Cork Tile Floor Layer Required: No Summer Clerk: Not Required per policy Accompanied by: Self / Same As Patient Allergies codeine [CODEINE] Allergy (Unknown, Verified 04/24/24 15:19) HIVES oxycodone [OXYCODONE] Allergy (Unknown, Verified 04/24/24 15:19) HIVES azithromycin [From ZITHROMAX] Adverse Reaction (Intermediate, Verified 04/24/24 15:19) NAUSEA & VOMITING Medication List - Last Reconciled 04/24/24 by Maryann Dumont PA-C acetaminophen (Tylenol Extra Strength) 500 - 1,000 mg (1 - 2 x 500 mg) PO Q6H PRN albuterol sulfate 90 mcg/actuation 2 puffs inhalation Q4-6H PRN albuterol sulfate 2.5 mg (0.5 mL) inhalation Q20M benzonatate 100 mg PO BID PRN cetirizine (All Day Allergy (cetirizine)) 10 mg PO DAILY PRN cholecalciferol (vitamin D3) 25 mcg PO DAILY cyclobenzaprine 10 mg PO BEDTIME PRN 5 days fluticasone propionate 50 mcg/actuation (Flonase Allergy Relief) 2 sprays intranasal DAILY ibuprofen 600 mg PO Q6H PRN meloxicam 15 mg PO DAILY 7 days pantoprazole 40 mg PO DAILY semaglutide 0.25 mg (0.368 mL) subcut QWEEK Tobacco use date assessed: 04/24/24 Dental Screening Dental Screen Date: 03/14/24 HPI PE annual HPI Details 63-year-old female with past medical his tory of obesity, obstructive sleep apnea, asthma, GERD last seen 03/2024 coming in for annual exam.?At her last visit in March patient was diagnosed with RSV and when to [facility] ED the day following her appointment for shortness of breath treated with nebulizers and discharged home. Presenting with chronic pain and GERD-related symptoms. The knee and back pain stem from past trauma and a previous fall, affecting mobility and exacerbated by her current weight. GERD has been a chronic issue, with current pantoprazole therapy proving ineffective at a low dosage. Hiatal hernia complicates the symptomatology with upper abdominal stretching sensations particularly in supine position. She was able to obtain Ozempic 0.25 mg prescription. 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 1. Little interest or pleasure in doing things: not at all 2. Feeling down, depressed, or hopeless: not at all 3. Trouble falling or staying asleep, or sleeping too much: not at all 4. Feeling tired or having little energy: not at all 5. Poor appetite or overeating: not at all 6. Feeling bad about yourself - or that you are a failure or have let yourself or your family down: not at all 7. Trouble concentrating on things, such as reading the newspaper or watching television: not at all 8. Moving or speaking so slowly that other people could have noticed. Or the opposite - being so fidgety or restless that you have been moving around a lot more than usual: not at all 9. Thoughts that you would be better off or of hurting yourself in some way: not at all Total score: 0 Depression Screening Interpretation: Negative Depression Screening Done: Yes Source: Developed by Drs. Loki Pop, Ilda Downey, Cheng Garcia and colleagues, with an educational maribel from [employer]. Thrive Questionnaire Date Thrive assessed: 03/14/24 I am a: Patient What is your living situation today?: I have a steady place to live Within the past 12 months, did the food you bought not last and you didn't have the money to get more?: Sometimes True Within the past 12 months, did you worry whether your food would run out before you got money to buy more?: I choose not to answer this question Do you have trouble paying for medicines?: No Do you have trouble getting transportation to medical appointments?: No Do you have trouble paying your heating and electricity bill?: I choose not to answer this question Do you have trouble taking care of your child, family member or friend?: No Do you have trouble with day-to-day activities such as bathing, preparing meals, shopping, managing finances, etc.?: No Are you currently unemployed and looking for a job?: No Are you interested in more education?: No Please select the resources that you would like help with: None Currently or been in a relationship where the following occur: No concerns reported THRIVE Score: 1 FERCHO-7 AMB Questionnaire FERCHO-7 Date FERCHO - 7 assessed: 03/14/24 Source: Developed by Drs. Loki Pop, Ilda Downey, Cheng Gracia and colleagues, with an educational maribel from [employer]. Review of Systems Const Denies body aches, Denies fatigue, Denies fever(s), Denies frequent falls, Denies headache(s) and Denies weakness Eyes Reports no additional complaints and Denies change in vision ENT Reports dysphagia, Denies dizziness, Denies facial pain, Denies headache(s), Denies nasal congestion and Denies odynophagia Card Denies chest pain, Denies syncope, Denies irregular heart rhythm, Denies leg edema, Denies lightheadedness and Denies dyspnea Resp Denies cough and Denies dyspnea GI Denies abdominal pain, Denies constipation, Reports dysphagia, Reports dyspepsia, Reports heartburn, Denies diarrhea, Denies nausea, Denies odynophagia and Denies vomiting Details: foul smell of urine Denies urinary frequency, Denies dysuria, Denies urinary hesitancy and Denies urinary urgency Musc Details: knee pain Reports abnormal gait, Reports back pain and Denies myalgias Skin/Breast Reports system reviewed and no additional complaints, except as documented Neuro Reports abnormal gait, Denies dizziness, Denies syncope, Denies frequent falls, Denies headache(s) and Denies weakness Psych Reports no additional complaints Endo Denies fatigue Physical exam (Primary Care) Vital Signs: Last Vital Signs Temp 97.3 F 04/24/24 14:44 Pulse 93 04/24/24 14:44 BP 130/60 04/24/24 14:44 Pulse Ox 98 04/24/24 14:44 Oxygen Delivery Method Room Air 04/24/24 14:44 BMI result Body Mass Index 30.7 Tobacco/Smoking Status: Tobacco use Status Tobacco use date assessed 04/24/24 04/24/24 14:53 Patient Tobacco Use Status Former Tobacco user 04/24/24 14:53 Tobacco use type Cigarette 04/24/24 14:53 e-Cigarette/Vaping Use Never Used 04/24/24 14:53 PHQ-9: PHQ-9 Score PHQ-9: Total score 0 04/24/24 16:20 Depression Screening Interpretation: Negative Thrive Assessment: Date of Thrive Assessment Date Thrive assessed 03/14/24 04/24/24 14:53 Currently or been in a relationship where the following occur: No concerns reported Const General: cooperative, healthy appearing, comfortable and no acute distress Orientation/consciousness: patient oriented x3 HENMT Head: Yes normocephalic Ears: hearing grossly normal bilaterally, external ears normal, TM's normal bilaterally and Abnormal EAC present excessive cerumen on the left General nose exam: Normal external nose present Face and sinus: Yes normal facial exam and Yes sinuses nontender Mouth: Normal oral and palatal mucosa present and tongue normal Throat: Yes posterior oropharynx normal Eyes General: appearance normal, both eyes and all related structures Conjunctivae: conjunctivae normal Pupils: Equal, round and reactive pupils present EOM: EOMs intact bilaterally and No Nystagmus present Neck Neck: Yes normal visual inspection, Yes full ROM and Yes no lymphadenopathy Chest Chest palpation & inspection: normal inspection of the chest Resp Effort & Inspection: normal respiratory effort Auscultation: clear to auscultation bilaterally, no crackles, no rales, no rhonchi, no wheezes and breath sounds present Cardio Rate: regular rate Rhythm: regular rhythm Peripheral pulses: radial pulses present and dorsalis pedis present GI Inspection: Yes normal to inspection and No Abdominal wall edema Palpation (GI): Soft to palpation, not firm and nontender Auscultation: normal bowel sounds Rectal Exam - Female: deferred General: Yes no CVA tenderness Back/Spine/Pelvis Back: no CVA tenderness Skin General skin exam: no rashes or lesions noted Neuro General: patient oriented x3 Cranial nerves: Yes Equal, round and reactive pupils present, Yes Midline tongue present, Yes Ability to bilaterally elevate shoulders present and No Nystagmus present Gait exam (Neuro): Normal gait present Extrem Other: Pain to palpation of bilateral knees with intact strength, sensation and pulses in bilateral lower extremities General: Yes normal to inspection, Yes full ROM, No no pedal edema and No edema Psych Speech and movement: Normal speech and movement present Affect: normal affect Insight: Good insight present (Psych) Judgement: Good judgement present (Psych) Office Procedures Flu Questionnaire Does the patient have a severe egg allergy?: No Does the patient have severe life threatening allergies?: No Does the patient have a fever or illness today?: No Has the patient ever had Guillain-Overbrook Syndrome?: No Has the patient ever had any past reaction to a flu shot?: No Immunizations Fluarix Triv 2165-7010 (PF) 45 mcg (15 mcg x 3)/0.5 mL IM syringe Performing Provider: Maryann Dumont PA-C [facility] Administered by: Yoana Delgado LPN on 04/24/24 16:08 Dose Route Admin Location Dispensed Lot Number Expiration Date VAC Wrapper Hands Sprayer 0.5 mL IM Left Deltoid 0.5 mL [id number] 09/03/24 [id number] [employer] VIS Given Date VIS Provided VIS Publication Date 04/24/24 Single Vaccine 20 Eligibility Eligibility Date Funding Source Not [facility] Eligible 04/24/24 Private Coding Level of Care Code Est Pt Prev Care 40-64y(98778) Diagnoses Annual physical exam Z00.00 Hypercholesterolemia E78.00 Plantar fasciitis M72.2 Obesity (BMI 30.0-34.9) E66.811 GERD (gastroesophageal reflux disease) K21.9 Obstructive sleep apnea G47.33 Asthma J45.909 Hiatal hernia K44.9 Bilateral knee pain M25.561; M25.562 Cerumen impaction H61.20 Atypical nevi D22.9 Assessment & Plan Assessment & Plan (1) Annual physical exam: Code(s): Z00.00 - Encounter for general adult medical examination without abnormal findings Category: Medical Plan: Patient is not up-to-date on mammogram Pap smears patient was provided with numbers for both the specialists today to schedule appointments. She is up-to-date on her colonoscopy but would like to see a GI specialist and referral was placed today. Blood work is up-to-date and has been reviewed with the patient. Flu vaccine was given today. Patient is not due on Td however we are out of it in the office today. (2) Hypercholesterolemia: Code(s): E78.00 - Pure hypercholesterolemia, unspecified Category: Medical Plan: Avoid foods that are high in cholesterol such as red meat, fried foods, eggs and baked goods. Triglyceride goal of less than 150 and LDL goal of less than 130. Not currently on medical management (3) Plantar fasciitis: Code(s): M72.2 - Plantar fascial fibromatosis Category: Medical Plan: Referral updated to Podiatry patient provided with a hard copy. (4) Obesity (BMI 30.0-34.9): Code(s): E66.811 - Obesity, class 1 Category: Medical Plan: Healthy diet and regular exercise is encouraged. Started on Ozempic 0.25 mg worse injection given in the office today. Instruction on Ozempic administration was provided by nursing staff, supporting the patient's weight management effort and potential reduction of symptoms like knee pain. (5) GERD (gastroesophageal reflux disease): Code(s): K21.9 - Gastro-esophageal reflux disease without esophagitis Category: Medical Plan: Avoid trigger foods such as citrus, tomato products, soda, caffeine, spicy foods and other foods that may be irritating to your stomach. Avoid laying flat 3-4 hours after eating and elevate the head of the bed 30 degrees to prevent acid from moving into the esophagus. Continue on pantoprazole increase to 40 mg, ordered for upper GI series and referred to GI. (6) Obstructive sleep apnea: Code(s): G47.33 - Obstructive sleep apnea (adult) (pediatric) Category: Medical Plan: Patient had inconclusive at home study schedule that have repeat sleep study in the next coming months. (7) Asthma: Code(s): J45.909 - Unspecified asthma, uncomplicated Category: Medical Plan: Asthma currently controlled on present medications. Continue on albuterol as needed. Avoid triggers such as allergies. (8) Hiatal hernia: Code(s): K44.9 - Diaphragmatic hernia without obstruction or gangrene Category: Medical Plan: Pantoprazole dosage will be increased due to inadequate control of GERD symptoms, and gastroenterology referral placed for evaluation of a hiatal hernia. Ordered for upper GI series for further evaluation (9) Bilateral knee pain: Code(s): M25.561 - Pain in right knee; M25.562 - Pain in left knee Category: Medical Plan: For her chronic pain, knee x-rays will be arranged to determine possible arthritis or structural issues, with consideration for orthopedic consultation based on outcomes. (10) Cerumen impaction: Code(s): H61.20 - Impacted cerumen, unspecified ear Category: Medical Plan: Advised to use Debrox drops and follow up in the office in 1 week for ear flushing. (11) Atypical nevi: Code(s): D22.9 - Melanocytic nevi, unspecified Category: Medical Plan: Presence of atypical nevi right side of nose referral placed to Dermatology. Plan This note was constructed using voice recognition software. While every effort has been made to ensure accuracy and vending machine servicer, still areas may have been included sometimes these areas may affect the content or meeting of the given symptoms. Total time spent caring for the patient today was thirty minutes. This includes time spent before the visit reviewing the chart, time spent during the visit, and time spent after the visit and documentation. Orders: Orders XR knee RT 2V 04/24/24 M25.561 - Pain in right knee, M25.562 - Pain in left knee Influenza 1820-2053 Immunization 04/24/24 Z23 - Encounter for immunization [place] upper GI series 04/24/24 K21.9 - Gastro-esophageal reflux disease without esophagitis XR knee LT 2V 04/24/24 M25.561 - Pain in right knee, M25.562 - Pain in left knee Referrals Gastroenterology Referral K21.9 - Gastro-esophageal reflux disease without esophagitis, K44.9 - Diaphragmatic hernia without obstruction or gangrene SR. MEDIA MANAGER Referral Z12.4 - Encounter for screening for malignant neoplasm of cervix Dermatology Referral D22.9 - Melanocytic nevi, unspecified Medications: New pantoprazole 40 mg PO DAILY 90 tabs 2RF Refilled meloxicam Take 1 tablet daily for 7 days. 15 mg PO DAILY 7 days 7 tabs 0RF S39.012A - Strain of muscle, fascia and tendon of lower back, initial encounter cyclobenzaprine Take 1 tablet by mouth at bedtime as needed for 5 days. 10 mg PO BEDTIME 5 days PRN 5 tabs 0RF muscle spasm S39.012A - Strain of muscle, fascia and tendon of lower back, initial encounter ibuprofen 600 mg PO Q6H PRN 30 tabs 0RF fever or pain Discontinued pantoprazole Discontinued Reason: Stopped on Transfer 20 mg PO DAILY 90 tabs 1RF
[2024-04-24 14:44] VITALS: BP 130/60; PULSE 93; TEMP 36.3; O2SAT 98; BMI 30.7
--- OUTSIDE RECORDS SUMMARY | 2024-04-24 15:41 | XMS_ITS | Encounter Summary ---
Author Organization [facility] Address [address] [place] [address] Care Team Providers Care Lead Atg Developer Name Role Phone Brian Nascimento MD Primary Care Provider Un available Zenaida Oliveira DO Primary Care Pro vider Unavailable Community, Pcp Primary Care Provider Unavailabl e Encounter Details Date Type Department Care Team Description 05/03/2017 Release of Information Medical Records [address] [place] [id number] Abstract, Provider Social History Tobacco Use Types Packs/Day Years Used Date Smoking Tobacco: Every Day Cigarettes 40 Smokeless Tobacco: Current Comments:4 cigs daily Alcohol Use Standard Drinks/Week Comments No 0 (1 standard drink = 0.6 oz pur e alcohol) Sex Assigned at Date Recorded Not on file documented as of this encounter Plan of Treatment Not on file documented as of this encounter Visit Diagnoses Not on filedocumented in this encounter Care Teams Lead Atg Developer Relationship Specialty Start Date End Date Brian Nascimento MD PCP - General Internal Medicine 04/08/1712/14 Zenaida Oliveira DO PCP - General Internal Medicine 12/15/18 06/22/21 [facility], Pcp PCP - General Internal Medicine 06/23/21 documented as of this encounter
--- OUTSIDE RECORDS SUMMARY | 2024-04-24 15:41 | XMS_ITS | Encounter Summary ---
Author Organization [facility] Address [address] [place] [address] Care Team Providers Care Theatre Program Director Name Role Phone Brian Nascimento MD Primary Care Provider Un available Zenaida Oliveira DO Primary Care Pro vider Unavailable Community, Pcp Primary Care Provider Unavailabl e Encounter Details Date Type Department Care Team Description 2018 Old Medical Records Medical Records [address] [place] [address] Abstract, Provider Social History Tobacco Use Types [...] on filedocumented in this encounter Care Teams Theatre Program Director Relationship Specialty Start Date End Date Brian Nascimento MD PCP - General Internal Medicine 04/08/1712/14 Zenaida Oliveira DO PCP - General Internal Medicine 12/15/18 06/22/21 [facility], Pcp PCP - General Internal Medicine 06/23/21 documented as of this encounter
--- OUTSIDE RECORDS SUMMARY | 2024-04-24 15:41 | XMS_ITS | Encounter Summary ---
Author Organization [facility] Address [address] [place] [address] Care Team Providers Care Linux Vmware Administrator Name Role Phone Zenaida Oliveira DO Primary Care Pro vider Unavailable Community, Pcp Primary Care Provider Unavailabl e Reason for Visit * Reason Onset Date Comments hospital follow up 01/05/2019 Encounter Details Date Type Department Care Team Description 01/05/2019 Telephone Adult Medicine [address] [address] Zenaida Oliveira DO hospital follow up Social History Tobacco Use Types Packs/Day Years Used Date Smoking Tobacco: Former Cigarettes 40 Smokeless Tobacco: Current Comments:quit smoking 2 clarissa hs ago Alcohol Use Standard Drinks/Week Comments No 0 (1 standard drink = 0.6 oz pur e alcohol) Sex Assigned at Date Recorded Not on file documented as of this encounter Miscellaneous Notes * Telephone Encounter - Ana M Rivas R.N. - 01/05/2019 3:04 PM EDT Pt to see dr Zenaida Larsen 01/10 at 9:30 for [facility] f/u chest pain * Telephone Encounter - Silvia Villela - 01/05/2019 2:45 PM EDT Hospital follow up appointment needed Hospital patient was treated at: [facility] Was this only an ER visit or was the patient admitted to the hospital? ER visit only Date of visit if ER visit only: 10/31/19 If patient was admitted what was the date of discharge? N/A Reason/diagnosis for visit or stay: acid reflux, tightness in throat, chest, SOB When was the patient told to follow up? [facility] Was visit or stay related to an injury? NO If yes, what was the date of injury (DOI)? N/A If yes, was the injury due to N/A documented in this encounter Plan of Treatment Not on file documented as of this encounter Visit Diagnoses Not on filedocumented in this encounter Care Teams Linux Vmware Administrator Relationship Specialty Start Date End Date Zenaida Oliveira DO PCP - General Internal Medicine 12/15/18 06/22/21 [facility], Pcp PCP - General Internal Medicine 06/23/21 documented as of this encounter
--- OUTSIDE RECORDS SUMMARY | 2024-04-24 15:41 | XMS_ITS | Encounter Summary ---
Author Organization [employer] [facility] Address [address] [facility] [place] [address] Care Team Providers Care Water Main Installer Helper Name Role Phone Zenaida Oliveira DO Primary Care Pro vider Unavailable [facility], Pcp Primary Care Provider Unavailabl e Encounter Details Date Type Department Care Team Description 08/28/2019 Telephone Gastroenterology - [place] [address] [facility] [address] [place] [address] Nata Miller DScPAS Social History Tobacco Use Types Packs/Day Years [...] on filedocumented in this encounter Care Teams Water Main Installer Helper Relationship Specialty Start Date End Date Zenaida Oliveira DO PCP - General Internal Medicine 12/15/18 06/22/21 [facility], Pcp PCP - General Internal Medicine 06/23/21 documented as of this encounter
--- OUTSIDE RECORDS SUMMARY | 2024-04-24 15:41 | XMS_ITS | Encounter Summary ---
Author Organization [facility] Address [address] [place] [address] Care Team Providers Care Behavioral Intervention Specialist Name Role Phone Brian Nascimento MD Primary Care Provider Un available Zenaida Oliveira DO Primary Care Pro vider Unavailable Community, Pcp Primary Care Provider Unavailabl e Encounter Details Date Type Department Care Team Description 06/24/2017 Orders Only Medical Records [address] [place] [address] Sophy Gonzalez PA-C [address] [place] [address] Social History Tobacco Use Types Packs/Day Years Used Date Smoking Tobacco: Every Day Cigarettes 40 Smokeless Tobacco: Current Comments:4 cigs daily Alcohol Use Standard Drinks/Week Comments No 0 (1 standard drink = 0.6 oz pur e alcohol) Sex Assigned at Date Recorded Not on file documented as of this encounter Plan of Treatment Not on file documented as of this encounter Procedures Procedure Name Priority Date/Time Associated Diagnosis Comments OUTSIDE SLEEP STUDY Routine 06/21/2017 documented in this encounter Results * OUTSIDE SLEEP STUDY (06/21/2017) Sophy Gonzalez PA-C PULMONOLOGY documented in this encounter Visit Diagnoses Not on filedocumented in this encounter Care Teams Behavioral Intervention Specialist Relationship Specialty Start Date End Date Brian Nascimento MD PCP - General Internal Medicine 04/08/1712/14 Zenaida Oliveira DO PCP - General Internal Medicine 12/15/18 06/22/21 [facility], Pcp PCP - General Internal Medicine 06/23/21 documented as of this encounter
--- OUTSIDE RECORDS SUMMARY | 2024-04-24 15:41 | XMS_ITS | Encounter Summary ---
Author Organization [facility] Address [address] [place] [address] Care Team Providers Care Fish Pitcher Name Role Phone Brian Nascimento MD Primary Care Provider Un available Zenaida Oliveira DO Primary Care Pro vider Unavailable Community, Pcp Primary Care Provider Unavailabl e Encounter Details Date Type Department Care Team Description 08/16/2017 Release of Information Medical Records [address] [place] [id number] Abstract, Provider Social History Tobacco Use Types [...] on filedocumented in this encounter Care Teams Fish Pitcher Relationship Specialty Start Date End Date Brian Nascimento MD PCP - General Internal Medicine 04/08/1712/14 Zenaida Oliveira DO PCP - General Internal Medicine 12/15/18 06/22/21 [facility], Pcp PCP - General Internal Medicine 06/23/21 documented as of this encounter
--- OUTSIDE RECORDS SUMMARY | 2024-04-24 15:41 | XMS_ITS | Encounter Summary ---
Author Organization [facility] Address [address] [place] [address] Care Team Providers Care Wood Die Maker Name Role Phone Zenaida Oliveira DO Primary Care Pro vider Unavailable Community, Pcp Primary Care Provider Unavailabl e Encounter Details Date Type Department Care Team Description 02/19/2019 Hospital Medical Records [address] [place] [address] Chidi Mosquera MD [address] [place] [address] [address] [place] [address] Social History Tobacco Use Types Packs/Day Years [...] on filedocumented in this encounter Care Teams Wood Die Maker Relationship Specialty Start Date End Date Zenaida Oliveira DO PCP - General Internal Medicine 12/15/18 06/22/21 Community, Pcp PCP - General Internal Medicine 06/23/21 documented as of this encounter
== END 2024-04-24 16:06 | disposition home or self-care (01) ==
DX: Z23 Encounter for immunization (principal)

== ENCOUNTER → 2024-04-24 14:39 | Outpatient (BNVA) | payer OTHER, SELFPAY | DX: Z00.01 Encounter for general adult medical examination with abnormal findings (principal); Z23 Encounter for immunization; E78.00 Pure hypercholesterolemia, unspecified; M72.2 Plantar fascial fibromatosis; E66.811 Obesity, class 1; Z68.30 Body mass index [BMI] 30.0-30.9, adult; K21.9 Gastro-esophageal reflux disease without esophagitis; G47.33 Obstructive sleep apnea (adult) (pediatric); J45.909 Unspecified asthma, uncomplicated; K44.9 Diaphragmatic hernia without obstruction or gangrene; M25.561 Pain in right knee; M25.562 Pain in left knee; H61.20 Impacted cerumen, unspecified ear; D22.39 Melanocytic nevi of other parts of face | CPT/HCPCS: 90471; 90656; 96127 ==

== ENCOUNTER 2024-04-25 12:01 | Outpatient (REF) | payer OTHER, SELFPAY ==
--- NOTE | ~2024-04-25 | XR_ITS ---
CLINICAL HISTORY: M25.561 - Pain in right knee Radiographs of the right knee, 2 views Comparison: None Findings: There is no fracture or dislocation. Moderate medial tibiofemoral compartment joint space narrowing and osteophytosis. Moderate patellofemoral compartment osteophytosis. Mild medial tibiofemoral compartment osteophytosis. Trace suprapatellar enthesophyte. Bone mineralization is normal. No knee joint effusion. No soft tissue swelling. Impression: No acute findings. Moderate degenerative change. This document has been electronically signed by: Calli Burgos MD on 04/25/2024 16:11:30
--- NOTE | ~2024-04-25 | XR_ITS ---
CLINICAL HISTORY: M25.561 - Pain in right knee Radiographs of the left knee, 2 views Comparison: 12/16/21 Findings: There is no fracture or dislocation. Moderate to severe medial tibiofemoral compartment joint space narrowing and osteophytosis. Mild lateral tibiofemoral compartment osteophytosis. Severe patellofemoral compartment osteophytosis. Suprapatellar enthesophyte. Bone mineralization is normal. No knee joint effusion. No soft tissue swelling. Impression: No acute findings. Moderate to severe degenerative change which is most prominent in the medial tibiofemoral and patellofemoral compartments, greater than on the prior study. This document has been electronically signed by: Calli Burgos MD on 04/25/2024 16:11:20
== END 2024-04-25 12:02 | disposition home or self-care (01) ==
LOC: HO.XRAY 12:01
DX: M25.561 Pain in right knee (principal); M25.562 Pain in left knee
CPT/HCPCS: 73560

== ENCOUNTER → 2024-04-25 12:07 | Outpatient (BNV) | payer OTHER, SELFPAY | PROVIDERS: Visit Provider Radiology Diagnostic Radiology | DX: M17.0 Bilateral primary osteoarthritis of knee (principal) | CPT/HCPCS: 73560 ==

== ENCOUNTER → 2024-05-04 19:30 | Outpatient (REF) | payer OTHER, SELFPAY ==
--- OUTSIDE RECORDS SUMMARY | 2024-05-04 21:41 | XMS_ITS | Clinical Summary ---
Author Organization [facility] Address [address] [facility] [place] [address] Care Team Providers Care Toy Department Manager Name Role Phone Community, Pcp Primary Care Provider Unavailabl e Allergies Active Allergy Reactions Severity Noted Date Comments Codeine Hives/Urticaria 04/29/2017 Apap-Fd&C Blue #1-Oxycodone Hives/Urticaria Tramadol Hives/Urticaria 04/29/2017 Medications Medication Sig Dispensed Refills Start Date End Date Status polyethylene glycol (COLYTE WITH FLAVOR PACKS) 240 g solution Drink 8 ounces every 15 minutes over 2 sitting. Finish the entire jug. 4000 mL 0 02/09/2019 Active Diclofenac Sodium 1 % Gel Place 1 g onto the skin 2 times daily. 60 g 3 03/13/2019 Active ciclopirox (LOPROX) 0.77 % cream Apply to both feet once daily x 2 weeks 40 g 3 05/21/2019 Active dexamethasone (DECADRON) 4 MG/ML injection Inject 0.5 mL into the vein once for 1 dose. 0.5 mL 0 05/21/2019 Active triamcinolone acetonide (KENALOG) 40 MG/ML injection Inject 1 mL into the articular space once for 1 dose. 1 mL 0 05/21/2019 Active fluticasone (FLOVENT HFA) 110 MCG/ACT inhaler Inhale 1 Puff into the lungs 2 times daily for 360 days. 1 Inhaler 2 06/08/2019 Active montelukast (SINGULAIR) 10 MG tablet Take 1 Tab by mouth daily for 360 days. 30 Tab 3 06/08/2019 Active VENTOLIN HFA 108 (90 Base) MCG/ACT Aero SolnIndications:Unco mplicated asthma, unspecified asthma severity, unspecified whether persistent Take 2 Puffs by mouth every 4 hours as needed for Cough or Wheezing. 18 g 0 06/08/2019 Active fluticasone (FLONASE) 50 MCG/ACT nasal spray 2 Sprays by Nasal route daily for 30 days. 1 Bottle 1 06/08/2019 Active lansoprazole (PREVACID) 30 MG capsule Take 1 Cap by mouth 2 times daily (before meals) for 360 days. 60 Cap 3 08/29/2019 Active sucralfate (CARAFATE) 1 GM/10ML suspension Take 10 mL by mouth 3 times daily as needed (burninig sensation in esophagus) for up to 30 days. 1200 mL 3 09/20/2019 Active Active Problems Problem Noted Date Gastroesophageal reflux disease 05/17/19 20 Snoring 06/24/2017 Overview: 06/2017 Home Sleep Study did not reveal sleep apnea. Asthma Allergic rhinitis Resolved Problems Problem Noted Date Resolved Date Chest x-ray abnormality 08/11/2017 10/14/19 18 Uncomplicated asthma 08/11/2017 10/13/2017 AMADOR (obstructive sleep apnea) Immunizations Name Administration Dates Next Due Influenza Vaccine-quadrivalent 4 Years Plus 12/06 Family History Medical History Relation Name Comments Diabetes Father Glaucoma Father Hypertension Father Diabetes Maternal Grandmother Hypertension Maternal Grandmother Hypertension Mother unknown cancer Paternal Grandfather Diabetes Sister 1 Thyroid Disorder Sister 2 Relation Name Status Comments Father Maternal Grandmother Mother Paternal Grandfather Sister 1 Sister 2 Social History Tobacco Use Types Packs/Day Years Used Date Smoking Tobacco: Former Cigarettes 40 Smokeless Tobacco: Current Comments:quit smoking 2 clarissa hs ago Alcohol Use Standard Drinks/Week Comments No 0 (1 standard drink = 0.6 oz pur e alcohol) Sex Assigned at Date Recorded Not on file Last Filed Vital Signs Vital Sign Reading Time Taken Comments Blood Pressure 102/72 05/21/2019 2:40 PM EDT Pulse 84 05/21/2019 2:40 PM EDT Temperature 36.6 ??C (97.8 ??F) 05/21/2019 2:40 PM ED T Respiratory Rate 16 05/21/2019 2:40 PM EDT Oxygen Saturation 96% 05/17/2019 9:46 AM EDT Inhaled Oxygen Concentration - - Weight 70.3 kg (155 lb) 05/21/2019 2:40 PM EDT Height 154.9 cm (5' 1 ) 05/21/2019 2:40 PM EDT Body Mass Index 29.29 05/21/2019 2:40 PM EDT Plan of Treatment Health Maintenance Due Date Last Done Comments Covid-19 Vaccine (#1) 06[birth year]1962 DTAP/TDAP/TD (1 - Tdap) 1980 PNEUMOCOCCAL VACCINE FOR HIG H RISK PATIENTS (#1) 1980 CERVICAL CANCER SCREENING 1982 BASELINE HEALTH EXAM 40-64 2001 MAMMOGRAM 2001 SHINGLES VACCINE (1 of 2) 12/12/2011 TOBACCO CHECK/ADVISE 03/08/2020 03/08/2018, 02/08/2018, 12/29/2017, Additional history exists CHOLESTEROL SCREENING 04/29/2022 04/29/2017 INFLUENZA (#1) 2023 12/29/2017, 04/09/2017 BMI CHECK/ADVISE 03/07/2024 01/01/2019, , 12/15/2018, Additional history exists DEPRESSION SCREENING/FOLLOWUP 03/07/2024 SOCIAL NEEDS SCREENING 03/07/2024 COLON CANCER SCREENING 02/19/2029 9 (Completed), 02/19/2019 HEPATITIS C SCREENING Completed 04/29/2017 Care Teams Toy Department Manager Relationship Specialty Start Date End Date Community, Pcp PCP - General Internal Medicine 06/23/21
--- OUTSIDE RECORDS SUMMARY | 2024-05-04 21:41 | XMS_ITS | Encounter Summary ---
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 However, the patient has not responded to any of our phone calls. A letter has also been sent. For this reason, the order will be closed. If the patient changes her mind, please have her contact CERTIFIED PROFESSIONAL CODER for an appointment. Thank you. documented in this encounter Plan of Treatment Not on file documented as of this encounter Visit Diagnoses Not on filedocumented in this encounter Care Teams Cook Room Supervisor Relationship Specialty Start Date End Date Brian Nascimento MD PCP - General Internal Medicine 04/08/1712/14 Zenaida Oliveira DO PCP - General Internal Medicine 12/15/18 06/22/21 [facility], Pcp PCP - General Internal Medicine 06/23/21 documented as of this encounter
--- OUTSIDE RECORDS SUMMARY | 2024-05-04 21:41 | XMS_ITS | Encounter Summary ---
Author Organization [facility] Address [address] [place] [address] Care Team Providers Care Animal Control Supervisor Name Role Phone Zenaida Oliveira DO Primary Care Pro vider Unavailable [facility], Pcp Primary Care Provider Unavailabl e Encounter Details Date Type Department Care Team Description 08/28/2019 Telephone Gastroenterology - [place] [address] [place] [address] Nata Miller DScPAS Social History [...] on filedocumented in this encounter Care Teams Animal Control Supervisor Relationship Specialty Start Date End Date Zenaida Oliveira DO PCP - General Internal Medicine 12/15/18 06/22/21 [facility], Pcp PCP - General Internal Medicine 06/23/21 documented as of this encounter
== END ==
LOC: HO.SL 19:30
DX: G47.10 Hypersomnia, unspecified (principal)
CPT/HCPCS: 95810

== ENCOUNTER → 2024-05-04 21:33 | Outpatient (BNV) | payer OTHER, SELFPAY | PROVIDERS: Visit Provider Internal Medicine | DX: G47.33 Obstructive sleep apnea (adult) (pediatric) (principal) | CPT/HCPCS: 95810 ==

== ENCOUNTER 2024-05-17 15:01 | Outpatient (AMB) | payer OTHER, SELFPAY ==
--- NOTE | 2024-05-17 15:07 | A.OFFPC_ITS ---
Vital Signs 05/17/24 15:08 Height 5 ft 1 in Weight 160 lb 6 oz BMI 30.3 BP 100/62 Blood Pressure Location Lt brachial Position Sitting Pulse 81 Pulse Source Pulse Oximeter Temp 97.7 F Temp Source Temporal Artery Scan Pulse Oximetry (%) 97 Oxygen Delivery Method Room Air Intake Visit Reasons: ear flush Intake Note: Patient is here to follow up on ear flush. Electrostatic Painter: Not Required per policy Accompanied by: Self / Same As Patient Allergies codeine [CODEINE] Allergy (Unknown, Verified 05/17/24 15:08) HIVES oxycodone [OXYCODONE] Allergy (Unknown, Verified 05/17/24 15:08) HIVES azithromycin [From ZITHROMAX] Adverse Reaction (Intermediate, Verified 05/17/24 15:08) NAUSEA & VOMITING Medication List - Last Reconciled 05/17/24 by Maryann Dumont PA-C acetaminophen (Tylenol Extra Strength) 500 - 1,000 mg (1 - 2 x 500 mg) PO Q6H PRN albuterol sulfate 90 mcg/actuation 2 puffs inhalation Q4-6H PRN albuterol sulfate 2.5 mg (0.5 mL) inhalation Q20M benzonatate 100 mg PO BID PRN cetirizine (All Day Allergy (cetirizine)) 10 mg PO DAILY PRN cholecalciferol (vitamin D3) 25 mcg PO DAILY cyclobenzaprine 10 mg PO BEDTIME PRN 5 days fluticasone propionate 50 mcg/actuation (Flonase Allergy Relief) 2 sprays intranasal DAILY ibuprofen 600 mg PO Q6H PRN meloxicam 15 mg PO DAILY 7 days pantoprazole 40 mg PO DAILY semaglutide 0.25 mg (0.368 mL) subcut QWEEK semaglutide (Ozempic) 0.5 mg subcut QWEEK Tobacco use date assessed: 05/17/24 Dental Screening Dental Screen Date: 03/14/24 HPI ear flush HPI Details 63-year-old female with past medical his tory of obesity, obstructive sleep apnea, asthma, GERD last seen 04/2024 coming in for ear flush. Patient tells us today she did not use the Debrox drops. 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 Cognitive needs: No Hearing needs: No Vision needs: No Questionnaire Thrive Questionnaire Date Thrive assessed: 03/14/24 I am a: Patient What is your living situation today?: I have a steady place to live Within the past 12 months, did the food you bought not last and you didn't have the money to get more?: Sometimes True Within the past 12 months, did you worry whether your food would run out before you got money to buy more?: I choose not to answer this question Do you have trouble paying for medicines?: No Do you have trouble getting transportation to medical appointments?: No Do you have trouble paying your heating and electricity bill?: I choose not to answer this question Do you have trouble taking care of your child, family member or friend?: No Do you have trouble with day-to-day activities such as bathing, preparing meals, shopping, managing finances, etc.?: No Are you currently unemployed and looking for a job?: No Are you interested in more education?: No Please select the resources that you would like help with: None Currently or been in a relationship where the following occur: No concerns reported THRIVE Score: 1 AUDIT C Alcohol Use Questionnaire (AUDIT-C) 3. How often do you have six or more drinks on one occasion?: Never Total Score: 0 FERCHO-7 AMB Questionnaire FERCHO-7 Date FERCHO - 7 assessed: 03/14/24 Source: Developed by Drs. Loki Pop, Ilda Downey, Cheng Garcia and colleagues, with an educational maribel from [employer]. Review of Systems Const Denies body aches, Denies chills and Denies fever(s) Eyes Reports no additional complaints ENT Details: left ear fullness Card Reports no additional complaints Resp Reports no additional complaints Physical exam (Primary Care) Vital Signs: Last Vital Signs Temp 97.7 F 03/13/25 15:08 Pulse 81 05/17/24 15:08 BP 100/62 05/17/24 15:08 Pulse Ox 97 05/17/24 15:08 Oxygen Delivery Method Room Air 05/17/24 15:08 BMI result Body Mass Index 30.3 Tobacco/Smoking Status: Tobacco use Status Tobacco use date assessed 05/17/24 05/17/24 15:10 Patient Tobacco Use Status Former Tobacco user 05/17/24 15:10 Tobacco use type Cigarette 05/17/24 15:10 e-Cigarette/Vaping Use Never Used 05/17/24 15:10 Thrive Assessment: Date of Thrive Assessment Date Thrive assessed 03/14/24 05/17/24 15:10 Currently or been in a relationship where the following occur: No concerns reported Const General: cooperative, healthy appearing, comfortable and no acute distress Orientation/consciousness: patient oriented x3 HENMT Head: Yes normocephalic Ears: hearing grossly normal bilaterally, TM normal on the right and Abnormal EAC present cerumen impaction on the left General nose exam: Normal external nose present Eyes General: appearance normal, both eyes and all related structures Conjunctivae: conjunctivae normal Neck Neck: Yes full ROM and Yes no lymphadenopathy Resp Effort & Inspection: normal respiratory effort Cardio Rate: regular rate Skin General skin exam: no rashes or lesions noted Neuro General: patient oriented x3 Gait exam (Neuro): Normal gait present Extrem General: Yes normal to inspection, Yes full ROM and No edema Psych Affect: normal affect Attitude: cooperative Insight: Good insight present (Psych) Judgement: Good judgement present (Psych) Office Procedures Cerumen Removal From which ear canal was the cerumen removed: left Removal: irrigation and cerumen loop/spoon Notes: patient tolerated procedure well and no complications 82184-Cin Irrigation/Lavage Coding Level of Care Code Procedure Only Diagnoses Cerumen impaction H61.20 CPT Codes Office Procedure - CPT: 10860-Zfj Irrigation/Lavage ([id number]) Assessment & Plan Assessment & Plan (1) Cerumen impaction: Code(s): H61.20 - Impacted cerumen, unspecified ear Category: Medical Plan: Left Ear was cleaned using irrigation lighted curette however patient became dizzy during the procedure ear cleaning was stopped. Wax is Hard and far back in the ear canal I recommend using Debrox drops and following up as needed concern. Plan This note was constructed using voice recognition software. While every effort has been made to ensure accuracy and race relations professor, still areas may have been included sometimes these areas may affect the content or meeting of the given symptoms. Total time spent caring for the patient today was 20 minutes. This includes time spent before the visit reviewing the chart, time spent during the visit, and time spent after the visit and documentation.
[2024-05-17 15:08] VITALS: BP 100/62; PULSE 81; TEMP 36.5; O2SAT 97; BMI 30.3
--- OUTSIDE RECORDS SUMMARY | 2024-05-17 18:46 | XMS_ITS | Encounter Summary ---
Author Organization [facility] Address [address] [place] [address] Care Team Providers Care Coffee Roaster Name Role Phone Brian Nascimento MD Primary Care Provider Un available Zenaida Oliveira DO Primary Care Pro vider Unavailable Community, Pcp Primary Care Provider Unavailabl e Encounter Details Date Type Department Care Team Description 05/03/2017 Release of Information Medical Records [address] [place] [id number] Abstract, Provider Social History Tobacco Use Types [...] on filedocumented in this encounter Care Teams Coffee Roaster Relationship Specialty Start Date End Date Brian Nascimento MD PCP - General Internal Medicine 04/08/1712/14 Zenaida Oliveira DO PCP - General Internal Medicine 12/15/18 06/22/21 Community, Pcp PCP - General Internal Medicine 06/23/21 documented as of this encounter
--- OUTSIDE RECORDS SUMMARY | 2024-05-17 18:46 | XMS_ITS | Encounter Summary ---
Author Organization [facility] Address [address] [place] [address] Care Team Providers Care Commercial Real Estate Underwriter Name Role Phone Brian Nascimento MD Primary Care Provider Un available Zenaida Oliveira DO Primary Care Pro vider Unavailable Community, Pcp Primary Care Provider Unavailabl e Encounter Details Date Type Department Care Team Description 08/16/2017 Release of Information Medical Records [address] [place] [id number] Abstract, Provider Social History Tobacco Use Types [...] on filedocumented in this encounter Care Teams Commercial Real Estate Underwriter Relationship Specialty Start Date End Date Brian Nascimento MD PCP - General Internal Medicine 04/08/1712/14 Zenaida Oliveira DO PCP - General Internal Medicine 12/15/18 06/22/21 Community, Pcp PCP - General Internal Medicine 06/23/21 documented as of this encounter
--- OUTSIDE RECORDS SUMMARY | 2024-05-17 18:46 | XMS_ITS | Encounter Summary ---
Author Organization [facility] Address [address] [place] [address] Care Team Providers Care Tandem Mill Sticker Name Role Phone Zenaida Oliveira DO Primary Care Pro vider Unavailable [facility], Pcp Primary Care Provider Unavailabl e Encounter Details Date Type Department Care Team Description 08/28/2019 Telephone Gastroenterology - [place] [address] [place] [address] Nata Miller DScPAS Social History [...] on filedocumented in this encounter Care Teams Tandem Mill Sticker Relationship Specialty Start Date End Date Zenaida Oliveira DO PCP - General Internal Medicine 12/15/18 06/22/21 [facility], Pcp PCP - General Internal Medicine 06/23/21 documented as of this encounter
--- OUTSIDE RECORDS SUMMARY | 2024-05-17 18:46 | XMS_ITS | Encounter Summary ---
Author Organization [facility] Address [address] [place] [address] Care Team Providers Care Garment Folder Name Role Phone Brian Nascimento MD Primary Care Provider Un available Zenaida Oliveira DO Primary Care Pro vider Unavailable Community, Pcp Primary Care Provider Unavailabl e Encounter Details Date Type Department Care Team Description 06/24/2017 Orders Only Medical Records [address] [place] [address] Sophy Gonzalze PA-C [address] [place] [address] Social History Tobacco Use Types Packs/Day Years [...] on filedocumented in this encounter Care Teams Garment Folder Relationship Specialty Start Date End Date Brian Nascimento MD PCP - General Internal Medicine 04/08/1712/14 Zenaida Olievira DO PCP - General Internal Medicine 12/15/18 06/22/21 Community, Pcp PCP - General Internal Medicine 06/23/21 documented as of this encounter
== END 2024-05-17 15:32 | disposition home or self-care (01) ==
LOC: HO.HMCH 15:02
DX: H61.22 Impacted cerumen, left ear (principal)

== ENCOUNTER → 2024-05-17 15:01 | Outpatient (BNVA) | payer OTHER, SELFPAY | DX: H61.22 Impacted cerumen, left ear (principal) | CPT/HCPCS: 69210 ==

== ENCOUNTER 2024-05-25 08:20 | Outpatient (AMB) | payer OTHER, SELFPAY ==
--- OUTSIDE RECORDS SUMMARY | 2024-05-25 08:33 | XMS_ITS | Encounter Summary ---
Author Organization [facility] Address [address] [place] [address] Care Team Providers Care Lieutenant Fire Fighter Name Role Phone Brian Nascimento MD Primary Care Provider Un available Zenaida Oliveira DO Primary Care Pro vider Unavailable Community, Pcp Primary Care Provider Unavailabl e Encounter Details Date Type Department Care Team Description 08/16/2017 Release of Information Medical Records [address] [place] [id number] Abstract, Provider Social History Tobacco Use Types [...] on filedocumented in this encounter Care Teams Lieutenant Fire Fighter Relationship Specialty Start Date End Date Brian Nascimento MD PCP - General Internal Medicine 04/08/1712/14 Zenaida Oliveira DO PCP - General Internal Medicine 12/15/18 06/22/21 Community, Pcp PCP - General Internal Medicine 06/23/21 documented as of this encounter
--- OUTSIDE RECORDS SUMMARY | 2024-05-25 08:33 | XMS_ITS | Encounter Summary ---
Author Organization [facility] Address [address] [place] [address] Care Team Providers Care Graphic Technician Name Role Phone Brian Nascimento MD Primary Care Provider Un available Zenaida Oliveira DO Primary Care Pro vider Unavailable Community, Pcp Primary Care Provider Unavailabl e Encounter Details Date Type Department Care Team Description 06/24/2017 Orders Only Medical Records [address] [place] [address] Sophy Gonzalez PA-C [address] [place] [address] Social History Tobacco Use Types Packs/Day Years [...] on filedocumented in this encounter Care Teams Graphic Technician Relationship Specialty Start Date End Date Brian Nascimento MD PCP - General Internal Medicine 04/08/1712/14 Zenaida Oliveira DO PCP - General Internal Medicine 12/15/18 06/22/21 Community, Pcp PCP - General Internal Medicine 06/23/21 documented as of this encounter
--- OUTSIDE RECORDS SUMMARY | 2024-05-25 08:34 | XMS_ITS | Encounter Summary ---
Author Organization [facility] Address [address] [place] [address] Care Team Providers Care House Carpenter Name Role Phone Brian Nascimento MD Primary Care Provider Un available Zenaida Oliveira DO Primary Care Pro vider Unavailable Community, Pcp Primary Care Provider Unavailabl e Encounter Details Date Type Department Care Team Description 05/03/2017 Release of Information Medical Records [address] [place] [address] Abstract, Provider Social History Tobacco Use Types [...] on filedocumented in this encounter Care Teams House Carpenter Relationship Specialty Start Date End Date Brian Nascimento MD PCP - General Internal Medicine 04/08/1712/14 Zenaida Oliveira DO PCP - General Internal Medicine 12/15/18 06/22/21 Community, Pcp PCP - General Internal Medicine 06/23/21 documented as of this encounter
--- OUTSIDE RECORDS SUMMARY | 2024-05-25 08:34 | XMS_ITS | Encounter Summary ---
Author Organization [facility] Address [address] [place] [address] Care Team Providers Care Agency Appointments Supervisor Name Role Phone Zenaida Oliveira DO Primary Care Pro vider Unavailable Community, Pcp Primary Care Provider Unavailabl e Encounter Details Date Type Department Care Team Description 12/25/2019 Telephone Gastroenterology - [place] [address] [place] [address] Nata Miller DScPAS Social History Tobacco Use Types Packs/Day Years Used Date Smoking Tobacco: Former Cigarettes 40 Smokeless Tobacco: Current Comments:quit smoking 2 clarissa hs ago Alcohol Use Standard Drinks/Week Comments No 0 (1 standard drink = 0.6 oz pur e alcohol) Sex Assigned at Date Recorded Not on file COVID-19 Exposure Response Date Recorded In the last month, have you been in contact with someone who was confirmed or suspected to have Coronavirus / COVID-19? Unable to assess 12/25/2019 8:07 AM EDT documented as of this encounter Plan of Treatment Not on file documented as of this encounter Visit Diagnoses Not on filedocumented in this encounter Care Teams Agency Appointments Supervisor Relationship Specialty Start Date End Date Zenaida Oliveira DO PCP - General Internal Medicine 12/15/18 06/22/21 [facility], Pcp PCP - General Internal Medicine 06/23/21 documented as of this encounter
--- OUTSIDE RECORDS SUMMARY | 2024-05-25 08:34 | XMS_ITS | Encounter Summary ---
Author Organization [facility] Address [address] [facility] [place] [address] Care Team Providers Care Gas Pumper Name Role Phone Zenaida Oliveira DO Primary Care Pro vider Unavailable [facility], Pcp Primary Care Provider Unavailabl e Encounter Details Date Type Department Care Team Description 08/28/2019 Telephone Gastroenterology - [place] [address] [facility] [address] [place] [address] Nata Miller DScPAS Social History [...] on filedocumented in this encounter Care Teams Gas Pumper Relationship Specialty Start Date End Date Zenaida Oliveira DO PCP - General Internal Medicine 12/15/18 06/22/21 [facility], Pcp PCP - General Internal Medicine 06/23/21 documented as of this encounter
--- OUTSIDE RECORDS SUMMARY | 2024-05-25 08:34 | XMS_ITS | Clinical Summary ---
Author Organization [facility] Address [address] [place] [address] Care Team Providers Care Paper Stripper Name Role Phone Community, Pcp Primary Care [...] HEPATITIS C SCREENING Completed 04/29/2017 Care Teams Paper Stripper Relationship Specialty Start Date End Date Community, Pcp PCP - General Internal Medicine 06/23/21
--- OUTSIDE RECORDS SUMMARY | 2024-05-25 08:34 | XMS_ITS | Encounter Summary ---
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 However, the patient has not responded to any of our phone calls. A letter has also been sent. For this reason, the order will be closed. If the patient changes her mind, please have her contact BLOOD BANK BUSINESS MANAGER for an appointment. Thank you. documented in this encounter Plan of Treatment Not on file documented as of this encounter Visit Diagnoses Not on filedocumented in this encounter Care Teams Distribution A Class Lineman Relationship Specialty Start Date End Date Brian Nascimento MD PCP - General Internal Medicine 04/08/1712/14 Zenaida Oliveira DO PCP - General Internal Medicine 12/15/18 06/22/21 [facility], Pcp PCP - General Internal Medicine 06/23/21 documented as of this encounter
--- NOTE | 2024-05-25 08:36 | AM.OFFWIN_ITS ---
Intake Vital Signs 05/25/24 08:44 Weight 160 lb BP 122/80 Blood Pressure Location Lt brachial Position Sitting Pulse 81 Pulse Source Pulse Oximeter Pulse Oximetry (%) 98 Oxygen Delivery Method Room Air Intake Visit Reasons: EP ?UTI Intake Note: Patient here for burning sensation, and foul odor that has been present for about 3 days. Patient Tobacco Use Status: Former Tobacco user Allergies codeine [CODEINE] Allergy (Unknown, Verified 05/25/24 08:43) HIVES oxycodone [OXYCODONE] Allergy (Unknown, Verified 05/25/24 08:43) HIVES azithromycin [From ZITHROMAX] Adverse Reaction (Intermediate, Verified 05/25/24 08:43) NAUSEA & VOMITING Do you need a note to return to daycare/school/sports/work: No HPI HPI Comments History of Present Illness Details This is a 63-year-old female who presented to the walk-in clinic complaining of dysuria and increased urinary frequency x3 days. She denies any urinary urgency or hematuria. She denies any flank or back pain. She reports some mild nausea yesterday but denies any vomiting or abdominal pain. She denies any fevers or chills. She denies any abnormal or unusual vaginal discharge or bleeding. She reports a foul smell to her urine. 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 Cognitive needs: No Hearing needs: No Vision needs: No Review of Systems Const All systems reviewed & are unremarkable except as noted in HPI and below Reports no additional complaints Eyes Reports no additional complaints ENT Reports no additional complaints Card Reports no additional complaints Resp Reports no additional complaints GI Reports no additional complaints Reports no additional complaints Musc Reports no additional complaints Skin/Breast Reports system reviewed and no additional complaints, except as documented Neuro Reports no additional complaints Psych Reports no additional complaints Endo Reports no additional complaints Sage/Lymph Reports no additional complaints Aller/Immun Reports no additional complaints Physical Exam Vital Signs: Last Vital Signs Pulse 81 05/25/24 08:44 BP 122/80 05/25/24 08:44 Pulse Ox 98 05/25/24 08:44 Oxygen Delivery Method Room Air 05/25/24 08:44 Const Other: Vital signs reviewed. Constitutional: Non-toxic appearing. No acute distress. Well-developed and well-nourished. HEENT: Normocephalic and atraumatic. Skin: Warm and dry. No rashes or lesions noted. Neck: Full and painless range of motion. No cervical lymphadenopathy. Cardio: Regular rate and rhythm. No murmurs, gallops, or rubs. No lower extremity edema. No JVD. Pulmonary: No respiratory distress. No accessory muscle usage. Clear to auscultation bilaterally without wheezing, crackles, or rhonchi. Gastrointestinal: Soft, nontender, and nondistended in all 4 quadrants. Normoactive bowel sounds in all 4 quadrants. Genitourinary: No CVA tenderness. Musculoskeletal: Normal range of motion in joints throughout the body. No deformity or other signs of injury. Neuro: Alert and oriented x4. Cranial nerves 2-12 grossly intact. No focal deficits appreciated. Psych: Normal mood and affect. Results AMB Urinalysis, Automated UA Leukoctes 125 Herber/uL Last Edit by TYLER Sidhu on 05/25/24 09: 09 UA Nitrite Positive Last Edit by TYLER Sidhu on 05/25/24 09:09 UA Urobilinogen 0.2 mg/dL Last Edit by Lucy Liu CCM on 05/25/24 09:09 UA Protein 0 mg/dL Last Edit by Lucy Liu CCM on 05/25/24 09:09 UA pH 6.0 Last Edit by TYLER Sidhu on 05/25/24 09:09 UA Blood 0 Binu/uL Last Edit by TYLER Sidhu on 05/25/24 09:09 UA Specific [place] 1.015 Last Edit by Lucy Liu CCM on 05/25/24 09:09 UA Ketone Negative Last Edit by TYLER Sidhu on 05/25/24 09:09 UA Bilirubin 0 mg/dL Last Edit by TYLER Sidhu on 05/25/24 09:09 UA Glucose 0 mg/dL Last Edit by TYLER Sidhu on 05/25/24 09:09 Assessment & Plan Assessment & Plan (1) UTI (urinary tract infection): Code(s): N39.0 - Urinary tract infection, site not specified Qualifiers: Urinary tract infection type: acute cystitis Hematuria presence: without hematuria Qualified Code(s): N30.00 - Acute cystitis without hematuria Plan: This is a 63-year-old female who presented to the walk-in clinic complaining of dysuria and increased urinary frequency. Her POCT urine dipstick showed 2+ leukocyte esterase and positive nitrites consistent with a urinary tract infection. Patient has no flank/back pain or CVA tenderness or fevers/chills to suggest acute pyelonephritis or systemic infection. Patient given a prescription for p.o. trimethoprim / sulfamethoxazole 160/800 mg twice daily x3 days. Patient was instructed to proceed directly to the emergency room if she were to develop fever/chills, flank or back pain, nausea / vomiting, or worsening / persistent symptoms. Patient verbalized her understanding and she is in agreement with the plan. Orders: Orders AMB Urinalysis Automated Today Z13.9 - Encounter for screening, unspecified Urine Culture Today N39.0 - Urinary tract infection, site not specified Medications: New sulfamethoxazole-trimethoprim 800-160 mg (Bactrim DS) 1 tab PO BID 6 tabs 0RF Coding Level of Care Code Est Pt Level 3 (64264) Diagnoses Acute cystitis without hematuria N30.00 Urinary tract infection type: acute cystitis Hematuria presence: without hematuria
[2024-05-25 08:44] VITALS: BP 122/80; PULSE 81; O2SAT 98
== END 2024-05-25 09:09 | disposition home or self-care (01) ==
PROVIDERS: Visit Provider Physician Assistant Medical
DX: Z13.9 Encounter for screening, unspecified (principal); N30.00 Acute cystitis without hematuria

== ENCOUNTER → 2024-05-25 08:20 | Outpatient (BNVA) | payer OTHER, SELFPAY | PROVIDERS: Visit Provider Physician Assistant Medical | DX: N30.00 Acute cystitis without hematuria (principal) | CPT/HCPCS: 81003 ==

== ENCOUNTER 2024-06-18 09:14 | Outpatient (REF) | payer OTHER, SELFPAY ==
--- NOTE | ~2024-06-18 | XR_ITS ---
EXAMINATION: XR KNEE, RIGHT CLINICAL INFORMATION: M25.569 - Pain in unspecified knee COMPARISON: None available. TECHNIQUE: Two views of the right knee. FINDINGS: Bilateral AP knee standing and sunrise view right knee reveals loss of joint space in bilateral compartments of both knees with moderate periarticular spurring. There is no loose bodies, fractures or dislocation. Rosman view right knee reveals patellofemoral joint space to be maintained. There is very patellar articular spurring noted. The soft tissues are normal. XR/XR knee RT 2V IMPRESSION: Degenerative arthritic changes medial compartment both knees and right patellofemoral joint. Electronically signed by: Anthony Johnson MD 06/19/2024 10:01 AM EDT
--- OUTSIDE RECORDS SUMMARY | 2024-06-19 10:02 | XMS_ITS | Encounter Summary ---
Author Organization [facility] Address [address] [facility] [place] [address] Care Team Providers Care Assurance Specialist Name Role Phone Zenaida Oliveira DO Primary Care Pro vider Unavailable [facility], Pcp Primary Care Provider Unavailabl e Encounter Details Date Type Department Care Team Description 08/28/2019 Telephone Gastroenterology - [place] [address] [facility] [address] [place] [address] Nata Miller DScPAS Social History [...] on filedocumented in this encounter Care Teams Assurance Specialist Relationship Specialty Start Date End Date Zenaida Oliveira DO PCP - General Internal Medicine 12/15/18 06/22/21 Vinnie, Pcp PCP - General Internal Medicine 06/23/21 documented as of this encounter
--- OUTSIDE RECORDS SUMMARY | 2024-06-19 10:02 | XMS_ITS | Clinical Summary ---
Author Organization [facility] Address [address] [facility] [address] Care Team Providers Care Business Analyst Name Role Phone Community, Pcp Primary Care [...] Additional history exists CHOLESTEROL SCREENING 04/29/2022 04/29/2017 BMI CHECK/ADVISE 03/07/2024 01/01/2019, , 12/15/2018, Additional history exists DEPRESSION SCREENING/FOLLOWUP 03/07/2024 SOCIAL NEEDS SCREENING 03/07/2024 INFLUENZA (Season Ended) 2024 12/29/2017, 05/2017 COLON CANCER SCREENING 02/19/2029 9 (Completed), 02/19/2019 HEPATITIS C SCREENING Completed 04/29/2017 Care Teams Business Analyst Relationship Specialty Start Date End Date Community, Pcp PCP - General Internal Medicine 06/23/21
--- OUTSIDE RECORDS SUMMARY | 2024-06-19 10:02 | XMS_ITS | Encounter Summary ---
Author Organization [facility] Address [address] [facility] [place] [address] Care Team Providers Care Relationship Assoc Name Role Phone Zenaida Oliveira DO Primary Care Pro vider Unavailable Community, Pcp Primary Care Provider Unavailabl e Encounter Details Date Type Department Care Team Description 12/25/2019 Telephone Gastroenterology - [place] [address] [facility] [address] [place] [address] Nata Miller DScPAS Social History [...] on filedocumented in this encounter Care Teams Relationship Assoc Relationship Specialty Start Date End Date Zenaida Oliveira DO PCP - General Internal Medicine 12/15/18 06/22/21 [facility], Pcp PCP - General Internal Medicine 06/23/21 documented as of this encounter
--- OUTSIDE RECORDS SUMMARY | 2024-06-19 10:02 | XMS_ITS | Encounter Summary ---
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 However, the patient has not responded to any of our phone calls. A letter has also been sent. For this reason, the order will be closed. If the patient changes her mind, please have her contact ACCOUNTS PAYABLE SPECIALIST for an appointment. Thank you. documented in this encounter Plan of Treatment Not on file documented as of this encounter Visit Diagnoses Not on filedocumented in this encounter Care Teams Public Affairs Manager Relationship Specialty Start Date End Date Brian Nascimento MD PCP - General Internal Medicine 04/08/1712/14 Zenaida Oliveira DO PCP - General Internal Medicine 12/15/18 06/22/21 [facility], Pcp PCP - General Internal Medicine 06/23/21 documented as of this encounter
--- OUTSIDE RECORDS SUMMARY | 2024-06-19 10:02 | XMS_ITS | Encounter Summary ---
Author Organization [facility] Address [address] [place] [address] Care Team Providers Care Automobile Contract Clerk Name Role Phone Zenaida Oliveira DO Primary Care Pro vider Unavailable Community, Pcp Primary Care Provider Unavailabl e Encounter Details Date Type Department Care Team Description 02/19/2019 Hospital Medical Records [address] [place] [address] Chidi Mosquera MD [address] [place] [address] [address] [place] [address] Social History Tobacco Use Types Packs/Day Years [...] on filedocumented in this encounter Care Teams Automobile Contract Clerk Relationship Specialty Start Date End Date Zenaida Oliveira DO PCP - General Internal Medicine 12/15/18 06/22/21 [facility], Pcp PCP - General Internal Medicine 06/23/21 documented as of this encounter
--- OUTSIDE RECORDS SUMMARY | 2024-06-19 10:02 | XMS_ITS | Encounter Summary ---
Author Organization [facility] Address [address] [place] [address] Care Team Providers Care Manager General Name Role Phone Zenaida Oliveira DO Primary Care Pro vider Unavailable Community, Pcp Primary Care Provider Unavailabl e Encounter Details Date Type Department Care Team Description 02/22/2019 Orders Only Medical Records [address] [place] [address] Chidi Mosquera MD [address] [place] [address] [address] [place] [address] Social History Tobacco Use Types Packs/Day Years [...] Name Priority Date/Time Associated Diagnosis Comments OUTSIDE PATHOLOGY Routine 02/19/2019 documented in this encounter Results * OUTSIDE PATHOLOGY (02/19/2019) Chidi Mosquera MD OUTSIDE LAB documented in this encounter Visit Diagnoses Not on filedocumented in this encounter Care Teams Manager General Relationship Specialty Start Date End Date Zenaida Oliveira DO PCP - General Internal Medicine 12/15/18 06/22/21 [facility], Pcp PCP - General Internal Medicine 06/23/21 documented as of this encounter
--- OUTSIDE RECORDS SUMMARY | 2024-06-19 10:02 | XMS_ITS | Encounter Summary ---
Author Organization [facility] Address [address] [place] [address] Care Team Providers Care Rooming House Operator Name Role Phone Brian Nascimento MD Primary Care Provider Un available Zenaida Oliveira DO Primary Care Pro vider Unavailable Community, Pcp Primary Care Provider Unavailabl e Encounter Details Date Type Department Care Team Description 06/24/2017 Orders Only Medical Records [address] [place] [address] Sophy Gonzalez PA-C [address] [place] [address] Social History Tobacco Use Types Packs/Day Years [...] on filedocumented in this encounter Care Teams Rooming House Operator Relationship Specialty Start Date End Date Brian Nascimento MD PCP - General Internal Medicine 04/08/1712/14 Zenaida Oliveira DO PCP - General Internal Medicine 12/15/18 06/22/21 [facility], Pcp PCP - General Internal Medicine 06/23/21 documented as of this encounter
== END 2024-06-18 09:15 | disposition home or self-care (01) ==
LOC: HO.HOSX 09:14
PROVIDERS: Visit Provider Physician Assistant
DX: M17.0 Bilateral primary osteoarthritis of knee (principal); M25.569 Pain in unspecified knee
CPT/HCPCS: 20610; 73560; J1010; J2003

== ENCOUNTER 2024-06-18 14:38 | Outpatient (AMB) | payer OTHER, SELFPAY ==
[2024-06-18 14:48] VITALS: BMI 30.2
--- NOTE | 2024-06-18 14:48 | A.OFFVIS_ITS ---
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 Patient reports her pain has been present for about 2-3 years ago, after having a fall. She was previously seen at [facility]. Currently her left knee is the worse and she is unable to fully bend at her knee. States her knee becomes stuck and has difficulty with stair use, she is unable to go up stairs. She had a lump at the posterior aspect of left knee however this has subsided. Her pain on the right knee is located at the medial aspect and at times the anterior aspect. She previously used a left knee brace. Found relief with meloxicam in the past. She takes naproxen which provides her with relief. Hx of pinched nerve in back Allergies codeine [CODEINE] Allergy (Unknown, Verified 06/18/24 14:55) HIVES oxycodone [OXYCODONE] Allergy (Unknown, Verified 06/18/24 14:55) HIVES azithromycin [From ZITHROMAX] Adverse Reaction (Intermediate, Verified 06/18/24 14:55) NAUSEA & VOMITING Medication List - Last Reconciled 06/18/24 by Jillian Guillaume PA-C acetaminophen (Tylenol Extra Strength) 500 - 1,000 mg (1 - 2 x 500 mg) PO Q6H PRN albuterol sulfate 90 mcg/actuation 2 puffs inhalation Q4-6H PRN albuterol sulfate 2.5 mg (0.5 mL) inhalation Q20M cetirizine (All Day Allergy (cetirizine)) 10 mg PO DAILY PRN cholecalciferol (vitamin D3) 25 mcg PO DAILY cyclobenzaprine 10 mg PO BEDTIME PRN 5 days fluticasone propionate 50 mcg/actuation (Flonase Allergy Relief) 2 sprays intranasal DAILY ibuprofen 600 mg PO Q6H PRN pantoprazole 40 mg PO DAILY semaglutide (Ozempic) 0.5 mg subcut QWEEK HPI HPI MENTAL HEALTH SPECIALIST-Bilateral primary osteoarthritis of knee: Details: 63 yo female presents to the office today for bilat knee pain, LT > Rt. She complains of pain that is along the anterior portion of the knee. It is worse w ith stairs and prolonged sitting to standing. She has discomfort with daily activities. 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 Tenderness along the medial joint line. ROM full with crepitus. Negative steinmans. No ligamentous laxity. NVI. Right knee skin intact, no erythema or joint effusion. Tenderness along the medial joint line. ROM full with crepitus. Negative steinmans. No ligamentous laxity. NVI. General: patient oriented x3 Office Procedures AMB Joint Injection/Aspiration Joint Injection/Aspiration Primary Site: right knee Secondary Site: left knee Prep: site was prepped using aseptic technique, ethochloride spray was applied and injection warnings given Injected: 80 mg of, DepoMedrol, with 8 mL of, 1% plain lidocaine and in the joint Approach Used: anterolateral Procedure: The patient tolerated the procedure well and there was some relief with the local anesthesia Coding 37781 - Glenohumeral/Tronchanteric Bursa/Intraarticular Procedure code (CPT) selection complete Results Reviewed Results Reviewed: Xrays were obtained in the office today and personally reviewed by me of the knees show medial compartment oa with PF oa Assessment & Plan Assessment & Plan (1) Bilateral primary osteoarthritis of knee: Code(s): M17.0 - Bilateral primary osteoarthritis of knee Category: Medical Plan: We discussed options today, which include steroid injection. The patient did consent to move forward with the injection, which was tolerated well.? I recommended rest, ice and elevation and OTC antiinflammatories prn for discomfort. If symptoms persist over the next 6-8 weeks, they will contact our office, otherwise, prn Orders: Orders XR knee RT 2V 06/18/24 M25.569 - Pain in unspecified knee XR knee LT 1V 06/18/24 M25.562 - Pain in left knee Coding Level of Care Code New Pt Level 3 (13665) Complex EM visit Add On G2211 Diagnoses Bilateral primary osteoarthritis of knee M17.0 CPT Codes Coding - Joint 7: 94892 - Glenohumeral/Tronchanteric Bursa/Intraarticular ([id number])
== END 2024-06-18 15:59 | disposition home or self-care (01) ==
LOC: HO.HOS 14:38
PROVIDERS: Visit Provider Physician Assistant
DX: M17.0 Bilateral primary osteoarthritis of knee (principal)
CPT/HCPCS: 20610; 99203

== ENCOUNTER → 2024-06-18 14:40 | Outpatient (BNV) | payer OTHER, SELFPAY | PROVIDERS: Visit Provider Radiology Diagnostic Radiology | DX: M25.561 Pain in right knee (principal); M17.0 Bilateral primary osteoarthritis of knee | CPT/HCPCS: 73560 ==

== ENCOUNTER 2024-07-07 22:53 | Emergency (ER) | payer OTHER, SELFPAY ==
--- NOTE | ~2024-07-07 | XR_ITS ---
CLINICAL HISTORY: fall injury 3 view right foot Comparison: None Findings: Bones intact. No dislocations. No significant arthritic change or erosions. No ankle effusion. No radiopaque foreign body. IMPRESSION: 1. No acute findings. This document has been electronically signed by: Kassy Portillo MD on 07/07/2024 23:49:23
[2024-07-07 23:06] VITALS: BP 135/69; PULSE 82; RESP 16; TEMP 36.2; O2SAT 98; BMI 28.0
[2024-07-07 23:47] VITALS: BP 102/62; PULSE 75; RESP 16; O2SAT 96
--- NOTE | 2024-07-07 23:51 | ED_ITS ---
HPI - Extremity Injury (Lower) General Chief Complaint: Extremity Injury, Lower Stated Complaint: injury r toe Time Seen by Provider: 07/07/24 23:50 Source: patient Mode of arrival: ambulatory Limitations: no limitations History of Present Illness ED Provider: DR. Banegas HPI Narrative: 63-year-old female came in for evaluation of right 1st toe injury, patient slipped and fell at work on the wet floor injured her right 1st toe while she is falling and also the left knee, having discoloration and swelling of the right 1st toe, no deformity, able to bear weight with pain. No head injury, no LOC, no nausea, no vomiting, No fever, no chills. Related Data Home Medications ?Medication ?Instructions ?Recorded ?Confirmed semaglutide 0.25 mg or 0.5 mg (2 0.5 mg subcut QWEEK 05/17/24 06/18/24 mg/3 mL) subcutaneous pen injector (Ozempic) Previous Rx's ?Medication ?Instructions ?Recorded fluticasone propionate 50 2 spray intranasal DAILY #16 grams 08/18/22 mcg/actuation nasal spray,suspension (Flonase Allergy Relief) cetirizine 10 mg tablet (All Day 10 mg PO DAILY PRN allergy 12/13/23 Allergy (cetirizine)) symptoms #30 tabs cholecalciferol (vitamin D3) 25 25 mcg PO DAILY #90 caps 12/19/23 mcg (1,000 unit) capsule acetaminophen 500 mg tablet 500 - 1,000 mg (1 - 2 x 500 mg) PO 03/15/24 (Tylenol Extra Strength) Q6H PRN pain #30 tabs albuterol sulfate 2.5 mg/0.5 mL 2.5 mg (0.5 mL) inhalation Q20M 03/28/24 solution for nebulization #30 ea albuterol sulfate 90 mcg/actuation 2 puff inhalation Q4-6H PRN 03/28/24 aerosol inhaler shortness of breath or wheezing #6.7 grams cyclobenzaprine 10 mg tablet 10 mg PO BEDTIME PRN muscle spasm 04/24/24 5 days #5 tabs ibuprofen 600 mg tablet 600 mg PO Q6H PRN fever or pain 04/24/24 #30 tabs esomeprazole magnesium 40 mg 40 mg PO DAILY #30 caps 07/05/24 capsule,delayed release Allergies Allergy/AdvReac Type Severity Reaction Status Date / Time codeine [CODEINE] Allergy Unknown HIVES Verified 07/07/24 23:09 oxycodone [OXYCODONE] Allergy Unknown HIVES Verified 07/07/24 23:09 Review of Systems Review of Systems: All other systems are reviewed and are negative Constitutional: Reports as per HPI and Reports no additional constitutional complaints Eyes: Reports as per HPI and Reports no additional eye complaints Reports system reviewed and no additional complaints, except as documented Cardiovascular: Reports as per HPI and Reports no additional cardiovascular complaints Respiratory: Reports as per HPI and Reports no additional respiratory complaints Gastrointestinal: Reports as per HPI and Reports no additional gastrointestinal complaints Genitourinary: Reports no additional female genitourinary complaints Musculoskeletal: Reports no additional musculoskeletal complaints Skin/Breast: Reports system reviewed and no additional complaints, except as docu Psychiatric: Reports no additional psychiatric complaints Endocrine: Reports no additional endocrine complaints Hematologic/Lymphatic: Reports no additional hematologic/lymphatic complaints Allergic/Immunologic: Reports no additional allergic/immunologic complaints Reports system reviewed and no additional complaints, except as documented and Reports Abnormal speech present [facility] Past Medical History Medical History Asthma Surgical History History of delivery Social History Social History Housing: House Alcohol intake: never Patient Tobacco Use Status: Former Tobacco user Tobacco use type: Cigarette e-Cigarette/Vaping Use: Never Used Second Hand Smoke Exposure: Yes Do you have a plan to hurt others: No Plan service: No Current occupational status: employed 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 Blood pressure elevated. Heart rate normal. Respiratory rate normal. Temperature normal. Oxygen saturation normal. Appearance: Alert. Oriented X3. No acute distress. Head: Normal external exam. Normocephalic. Atraumatic. No Perez signs noted. No raccoon eyes noted Eyes: PERRLA. EOMI. Conjunctiva and sclera normal. Eyelids normal. ENT: TM's Normal. Pharynx normal. Uvula midline. Moist mucous membranes. No trismus noted. No drooling noted. No muffled voice noted. Neck: Normal inspection. Neck supple. FROM. No adenopathy. Thyroid Normal. No meningeal signs. No neck mass noted. CVS: Normal heart rate and rhythm. Heart sound normal. No murmurs noted. Pulses normal throughout. Respiratory: No respiratory distress. Painless inspiration. Breath sounds normal. No wheezes/rales/rhonchi noted. Chest nontender. No accessory muscle usage noted or decreased air movement noted. Abdomen: Soft and nontender. Bowel sounds normal in all 4 quadrants. No distention noted. No organomegaly noted. No visible injury noted. Back: No CVA tenderness. Full range of motion noted. Skin: Skin warm and dry. Normal skin color. Normal skin turgor. No rashe s/lesions/lacerations noted. Extremities: Right knee /Right foot: Right 1st toe hematoma with mild tenderness, no step-off, no deformity, neurovascularly intact. right knee no deformity, no ecchymosis, able to bear weight with the right knee. Neuro: Oriented X 3. Cranial nerve exam: II-XII are grossly intact No motor deficit. No sensory deficit. Reflexes normal. Course Reevaluation(s) Reevaluation #1: Right 1st toe contusion no active fracture, Left knee physical exam is revealing no acute fracture or dislocation. Time: 00:18 Medical Decision Making Differential Diagnosis Differential Diagnoses: The differential diagnosis associated with the presentation includes ( Left knee contusion, right great toe contusion, right great toe fracture.) Admission/Observation Consideration of admission/observation: Escalation of care including admission/observation considered Independent Interpretation I performed an independent interpretation of an: Plain X-Ray ( right foot: No acute pathology.) Radiology Impression Discussion of test interpretation with radiology: I have reviewed the radiologist's reading. Discharge Plan Discharge Clinical Impression: Contusion of foot, right Patient Disposition: Home, Self-Care Instructions: Foot Contusion (ED) Prescriptions: No Action cholecalciferol (vitamin D3) 25 mcg (1,000 unit) capsule 25 mcg PO DAILY Qty: 90 3RF albuterol sulfate 2.5 mg/0.5 mL solution for nebulization 2.5 mg inhalation Q20M Qty: 30 2RF Rx Instructions: for up to 3 doses albuterol sulfate 90 mcg/actuation HFA aerosol inhaler 2 puff inhalation Q4-6H PRN (Reason: shortness of breath or wheezing) Qty: 6.7 2RF esomeprazole magnesium 40 mg capsule,delayed release(DR/EC) 40 mg PO DAILY Qty: 30 2RF fluticasone propionate [Flonase Allergy Relief] 50 mcg/actuation spray,suspension 2 spray intranasal DAILY Qty: 16 0RF Rx Instructions: administer into each nostril acetaminophen [Tylenol Extra Strength] 500 mg tablet 500 - 1,000 mg PO Q6H PRN (Reason: pain) Qty: 30 0RF Ozempic 0.25 mg or 0.5 mg (2 mg/3 mL) pen injector 0.5 mg subcut QWEEK cetirizine [All Day Allergy (cetirizine)] 10 mg tablet 10 mg PO DAILY PRN (Reason: allergy symptoms) Qty: 30 0RF cyclobenzaprine 10 mg tablet 10 mg PO BEDTIME PRN (Reason: muscle spasm) 5 Days Qty: 5 0RF Rx Instructions: Take 1 tablet by mouth at bedtime as needed for 5 days. ibuprofen 600 mg tablet 600 mg PO Q6H PRN (Reason: fever or pain) Qty: 30 0RF Referrals: Maryann Dumont PA-C [Primary Care Provider] - Stand Alone Forms: Work/School Release Print Language: Telugu
--- OUTSIDE RECORDS SUMMARY | 2024-07-08 00:44 | XMS_ITS | Encounter Summary ---
Author Organization [facility] Address [address] [place] [address] Care Team Providers Care Head Grower Name Role Phone Brian Nascimento MD Primary Care Provider Un available Zenaida Oliveira DO Primary Care Pro vider Unavailable Community, Pcp Primary Care Provider Unavailabl e Encounter Details Date Type Department Care Team Description 06/24/2017 Orders Only Medical Records [address] [place] [address] Sophy Gonzalez PA-C [address] [place] [address] Social History Tobacco Use Types Packs/Day Years [...] on filedocumented in this encounter Care Teams Head Grower Relationship Specialty Start Date End Date Brian Nascimento MD PCP - General Internal Medicine 04/08/1712/14 Zenaida Oliveira DO PCP - General Internal Medicine 12/15/18 06/22/21 Community, Pcp PCP - General Internal Medicine 06/23/21 documented as of this encounter
--- OUTSIDE RECORDS SUMMARY | 2024-07-08 00:44 | XMS_ITS | Encounter Summary ---
Author Organization [facility] Address [address] [place] [address] Care Team Providers Care Lumber Driver Name Role Phone Zenaida Oliveira DO Primary Care Pro vider Unavailable Community, Pcp Primary Care Provider Unavailabl e Encounter Details Date Type Department Care Team Description 02/22/2019 Orders Only Medical Records [address] [place] [address] Chidi Mosquera MD [address] [place] [address] [address] [place] [address] Social History Tobacco Use Types Packs/Day Years [...] on filedocumented in this encounter Care Teams Lumber Driver Relationship Specialty Start Date End Date Zenaida Oliveira DO PCP - General Internal Medicine 12/15/18 06/22/21 Community, Pcp PCP - General Internal Medicine 06/23/21 documented as of this encounter
--- OUTSIDE RECORDS SUMMARY | 2024-07-08 00:44 | XMS_ITS | Encounter Summary ---
Author Organization [facility] Address [address] [place] [address] Care Team Providers Care Stacker Tender Name Role Phone Zenaida Oliveira DO Primary Care Pro vider Unavailable Community, Pcp Primary Care Provider Unavailabl e Reason for Visit * Reason Onset Date Comments hospital follow up 01/05/2019 Encounter Details Date Type Department Care Team Description 01/05/2019 Telephone Adult Medicine [address] [address] Zenaida Oliveira DO hospital follow up Social [...] dr Zenaida Larsen 01/10 at 9:30 for [facility] f/u chest pain * Telephone Encounter - Silvia Villela - 01/05/2019 2:45 PM EDT Hospital follow up appointment needed Hospital patient was treated at: [facility] Was this only an ER visit [...] on filedocumented in this encounter Care Teams Stacker Tender Relationship Specialty Start Date End Date Zenaida Oliveira DO PCP - General Internal Medicine 12/15/18 06/22/21 [facility], Pcp PCP - General Internal Medicine 06/23/21 documented as of this encounter
--- OUTSIDE RECORDS SUMMARY | 2024-07-08 00:44 | XMS_ITS | Encounter Summary ---
Author Organization [employer] [facility] Address [address] [place] [address] Care Team Providers Care Learning Support Assistant Name Role Phone Zenaida Oliveira DO Primary Care Pro vider Unavailable [facility], Pcp Primary Care Provider Unavailabl e Encounter Details Date Type Department Care Team Description 08/28/2019 Telephone Gastroenterology - [place] [address] [facility] [address] [place] [address] Nata Miller DScPAS Social History [...] on filedocumented in this encounter Care Teams Learning Support Assistant Relationship Specialty Start Date End Date Zenaida Oliveira DO PCP - General Internal Medicine 12/15/18 06/22/21 [facility], Pcp PCP - General Internal Medicine 06/23/21 documented as of this encounter
--- OUTSIDE RECORDS SUMMARY | 2024-07-08 00:44 | XMS_ITS | Encounter Summary ---
Author Organization [facility] Address [address] [place] [address] Care Team Providers Care Equip Tech Name Role Phone Zenaida Oliveira DO Primary Care Pro vider Unavailable Community, Pcp Primary Care Provider Unavailabl e Encounter Details Date Type Department Care Team Description 12/25/2019 Telephone Gastroenterology - [place] [address] [facility] [address] [place] [address] Nata Miller DScPAS Social History [...] on filedocumented in this encounter Care Teams Equip Tech Relationship Specialty Start Date End Date Zenaida Oliveira DO PCP - General Internal Medicine 12/15/18 06/22/21 Community, Pcp PCP - General Internal Medicine 06/23/21 documented as of this encounter
[2024-07-08 00:50] VITALS: BP 102/62; PULSE 75; RESP 16; TEMP -17.7; TEMP 0; O2SAT 96
== END 2024-07-08 01:05 | disposition home or self-care (01) ==
PROVIDERS: Emergency Provider Emergency Medicine
DX: S99.921A Unspecified injury of right foot, initial encounter (principal); S90.31XA Contusion of right foot, initial encounter; W01.0XXA Fall on same level from slipping, tripping and stumbling without subsequent striking against object, initial encounter; Y93.9 Activity, unspecified; Y92.9 Unspecified place or not applicable; Y99.0 Civilian activity done for income or pay; Z79.899 Other long term (current) drug therapy; Z87.891 Personal history of nicotine dependence
CPT/HCPCS: 73620; 99283; 99284

== ENCOUNTER → 2024-07-07 23:10 | Outpatient (BNV) | payer OTHER, SELFPAY | PROVIDERS: Emergency Provider Emergency Medicine; Visit Provider Student in an Organized Health Care Education/Training Program | DX: S90.31XA Contusion of right foot, initial encounter (principal); W19.XXXA Unspecified fall, initial encounter | CPT/HCPCS: 73620 ==

== ENCOUNTER 2024-07-27 14:01 | Outpatient (REF) | payer OTHER, SELFPAY ==
[2024-07-27 16:38] LABS: Alanine Aminotransferase 22 U/L (0-31); Albumin Level 4.7 g/dL (3.5-5.0); Alkaline Phosphatase 69 U/L (39-117); Anion Gap 13 (12-20); Aspartate Amino Transferase 22 U/L (5-31); Bilirubin Total 0.3 mg/dL (0.0-1.0); Blood Urea Nitrogen 15 mg/dL (9-16); Calcium 9.2 mg/dL (8.4-10.2); Carbon Dioxide 28 mmol/L (22-29); Chloride 106 mmol/L (96-108); Estimated Glomerular Filt Rate > 60; Glucose Random 86 mg/dL (60-115); Potassium 4.2 mmol/L (3.3-5.1); Sodium 143 mmol/L (135-145); Total Protein 7.5 g/dL (6.5-8.0)
== END 2024-07-27 14:02 | disposition home or self-care (01) ==
LOC: HO.LAB 14:01
DX: E66.811 Obesity, class 1 (principal)
CPT/HCPCS: 36415; 80053

== ENCOUNTER 2024-07-27 14:01 | Outpatient (AMB) | payer OTHER, SELFPAY ==
--- OUTSIDE RECORDS SUMMARY | 2024-07-27 14:04 | XMS_ITS | Encounter Summary ---
Author Organization [facility] Address [address] [place] [address] Care Team Providers Care Nanoelectronics Engineer Name Role Phone Brian Nascimento MD Primary Care Provider Un available Zenaida Oliveira DO Primary Care Pro vider Unavailable Community, Pcp Primary Care Provider Unavailabl e Encounter Details Date Type Department Care Team Description 08/16/2017 Release of Information Medical Records [address] [place] [id number] Abstract, Provider Social History Tobacco Use Types [...] on filedocumented in this encounter Care Teams Nanoelectronics Engineer Relationship Specialty Start Date End Date Brian Nascimento MD PCP - General Internal Medicine 04/08/1712/14 Zenaida Oliveira DO PCP - General Internal Medicine 12/15/18 06/22/21 Community, Pcp PCP - General Internal Medicine 06/23/21 documented as of this encounter
--- NOTE | 2024-07-27 14:10 | MHC.PC.OV ---
Vital Signs 07/27/24 14:11 Height 5 ft 1 in Weight 147 lb 4 oz BMI 27.8 BP 118/66 Blood Pressure Location Lt brachial Position Sitting Pulse 79 Pulse Source Pulse Oximeter Temp 97.1 F Temp Source Temporal Artery Scan Pulse Oximetry (%) 96 Oxygen Delivery Method Room Air Intake Visit Reasons: [facility] 07/08 injury r toe Intake Note: Patient is here to follow-up after a visit the emergency department at [facility] on 07/08/24 Distance Education Coordinator Required: No Operations And Maintenance Supervisor: Not Required per policy Accompanied by: Self / Same As Patient Allergies codeine [CODEINE] Allergy (Unknown, Verified 07/27/24 14:23) HIVES oxycodone [OXYCODONE] Allergy (Unknown, Verified 07/27/24 14:23) HIVES Medication List - Last Reconciled 07/27/24 by Maryann Dumont PA-C acetaminophen (Tylenol Extra Strength) 500 - 1,000 mg (1 - 2 x 500 mg) PO Q6H PRN albuterol sulfate 90 mcg/actuation 2 puffs inhalation Q4-6H PRN albuterol sulfate 2.5 mg (0.5 mL) inhalation Q20M cetirizine (All Day Allergy (cetirizine)) 10 mg PO DAILY PRN cholecalciferol (vitamin D3) 25 mcg PO DAILY cyclobenzaprine 10 mg PO BEDTIME PRN 5 days esomeprazole magnesium 40 mg PO DAILY fluticasone propionate 50 mcg/actuation (Flonase Allergy Relief) 2 sprays intranasal DAILY ibuprofen 600 mg PO Q6H PRN semaglutide (Ozempic) 0.5 mg subcut QWEEK Tobacco use date assessed: 07/27/24 Dental Screening Dental Screen Date: 03/14/24 HPI [facility] 07/08 injury r toe HPI Details 63-year-old female with past medical history of obesity, obstructive sleep apnea, asthma, GERD last seen 05/2024 coming in for hospital follow up. Patient was seen in [facility] ED 07/08/2024 after a slip and fall at work having right great toe pain x-ray was negative patient was discharged home. Presenting with a follow-up for a toe contusion and weight management. Reports sustaining a toe contusion at work on July 09 after a slip and fall. Initially presented with pain and mild soreness with no current swelling or severe pain. Reports weight loss from 160 pounds to 147 pounds over two months, with a total of 21 pounds lost since March. Attributes weight loss to dietary changes and increased activity, involving exercise routines and the elimination of soda. Physical function improved following orthopedic intervention, allowing for increased physical activity, including walking and stair climbing. 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 1. Little interest or pleasure in doing things: nearly every day 2. Feeling down, depressed, or hopeless: not at all Source: Developed by Drs. Loki Pop, Ilda Downey, Cheng Garcia and colleagues, with an educational maribel from [employer]. Thrive Questionnaire Date Thrive assessed: 03/14/24 I am a: Patient What is your living situation today?: I have a steady place to live Within the past 12 months, did the food you bought not last and you didn't have the money to get more?: Sometimes True Within the past 12 months, did you worry whether your food would run out before you got money to buy more?: I choose not to answer this question Do you have trouble paying for medicines?: No Do you have trouble getting transportation to medical appointments?: No Do you have trouble paying your heating and electricity bill?: I choose not to answer this question Do you have trouble taking care of your child, family member or friend?: No Do you have trouble with day-to-day activities such as bathing, preparing meals, shopping, managing finances, etc.?: No Are you currently unemployed and looking for a job?: No Are you interested in more education?: No Please select the resources that you would like help with: None Currently or been in a relationship where the following occur: No concerns reported THRIVE Score: 1 FERCHO-7 AMB Questionnaire FERCHO-7 Date FERCHO - 7 assessed: 03/14/24 Source: Developed by Drs. Loki Pop, Ilda Downey, Cheng Garcia and colleagues, with an educational maribel from [employer]. Review of Systems Const Denies body aches, Denies chills, Denies fever(s), Denies headache(s) and Denies poor appetite Eyes Reports no additional complaints ENT Denies dysphagia, Denies dizziness, Denies headache(s) and Denies odynophagia Card Denies chest pain, Denies syncope, Denies edema, Denies irregular heart rhythm, Denies lightheadedness and Denies dyspnea Resp Denies cough and Denies dyspnea GI Denies abdominal pain, Denies constipation, Denies dysphagia, Denies diarrhea, Denies nausea, Denies odynophagia and Denies vomiting Reports no additional complaints Musc Reports no additional complaints and Denies abnormal gait Skin/Breast Reports system reviewed and no additional complaints, except as documented Neuro Denies abnormal gait, Denies dizziness, Denies syncope and Denies headache(s) Psych Reports no additional complaints Physical exam (Primary Care) Vital Signs: Last Vital Signs Temp 97.1 F 07/27/24 14:11 Pulse 79 07/27/24 14:11 BP 118/66 07/27/24 14:11 Pulse Ox 96 07/27/24 14:11 Oxygen Delivery Method Room Air 07/27/24 14:11 BMI result Body Mass Index 27.8 Tobacco/Smoking Status: Tobacco use Status Tobacco use date assessed 07/27/24 07/27/24 14:15 Patient Tobacco Use Status Former Tobacco user 07/27/24 14:11 Tobacco use type Cigarette 07/27/24 14:11 e-Cigarette/Vaping Use Never Used 07/27/24 14:11 Thrive Assessment: Date of Thrive Assessment Date Thrive assessed 03/14/24 07/27/24 14:11 Currently or been in a relationship where the following occur: No concerns reported Const General: cooperative, healthy appearing, comfortable and no acute distress Orientation/consciousness: patient oriented x3 HENMT Head: Yes normocephalic Ears: hearing grossly normal bilaterally General nose exam: Normal external nose present Eyes General: appearance normal, both eyes and all related structures Conjunctivae: conjunctivae normal Neck Neck: Yes full ROM and Yes no lymphadenopathy Resp Effort & Inspection: normal respiratory effort Auscultation: clear to auscultation bilaterally, no crackles, no rales, no rhonchi and no wheezes Cardio Rate: regular rate Rhythm: regular rhythm Skin General skin exam: no rashes or lesions noted Neuro General: patient oriented x3 Gait exam (Neuro): Normal gait present Extrem General: Yes normal to inspection, Yes full ROM and No edema Psych Affect: normal affect Attitude: cooperative Insight: Good insight present (Psych) Judgement: Good judgement present (Psych) Coding Level of Care Code Est Pt Level 3 (46196) Diagnoses Obesity (BMI 30.0-34.9) E66.811 Bilateral primary osteoarthritis of knee M17.0 GERD (gastroesophageal reflux disease) K21.9 Pain of right great toe M79.674 Assessment & Plan Assessment & Plan (1) Obesity (BMI 30.0-34.9): Code(s): E66.811 - Obesity, class 1 Category: Medical Plan: Healthy diet and regular exercise is encouraged. Patient has been using Ozempic 0.5mg and would like to increase the dose to 1 mg weekly. Rx was sent. Plan to obtain blood work for evaluation and f/u in 2 months. (2) Bilateral primary osteoarthritis of knee: Code(s): M17.0 - Bilateral primary osteoarthritis of knee Category: Medical Plan: Recently seen by ortho and received landen knee injections which she feels has been helpful for her. (3) GERD (gastroesophageal reflux disease): Code(s): K21.9 - Gastro-esophageal reflux disease without esophagitis Category: Medical Plan: Avoid trigger foods such as citrus, tomato products, soda, caffeine, spicy foods and other foods that may be irritating to your stomach. Avoid laying flat 3-4 hours after eating and elevate the head of the bed 30 degrees to prevent acid from moving into the esophagus. (4) Pain of right great toe: Code(s): M79.674 - Pain in right toe(s) Category: Medical Plan: Resolved at this time and patient is back to normal activity. Plan For the toe contusion follow-up and weight management, I emphasized ongoing monitoring of the toe and noted the improvement in symptoms. Lifestyle changes, including dietary modifications and increased physical activity, are samuels to managing obesity and supporting osteoarthritis. If blood work results are satisfactory, advancing medication dosage will help continue weight loss efforts. With the urinary tract infection resolved, no immediate follow-up is needed, though monitoring is advised. Continued regular exercise and healthy dietary habits are essential. This note was constructed using voice recognition software. While every effort has been made to ensure accuracy and plywood layup line back feeder, still areas may have been included sometimes these areas may affect the content or meeting of the given symptoms. Total time spent caring for the patient today was 20 minutes. This includes time spent before the visit reviewing the chart, time spent during the visit, and time spent after the visit and documentation. Patient was informed and verbally consented to the use of an ambient scribe for clinic note documentation during this visit. Orders: Orders Comprehensive Met. Panel Today E66.811 - Obesity, class 1 Medications: New semaglutide (weight loss) (Weorivy) 1 mg (0.5 mL) subcut Q7D 2 mL 0RF
[2024-07-27 14:11] VITALS: BP 118/66; PULSE 79; TEMP 36.2; O2SAT 96; BMI 27.8
== END 2024-07-27 14:40 | disposition home or self-care (01) ==
LOC: HO.HMCH 14:02
DX: M17.0 Bilateral primary osteoarthritis of knee (principal); E66.811 Obesity, class 1; Z68.27 Body mass index [BMI] 27.0-27.9, adult; K21.9 Gastro-esophageal reflux disease without esophagitis; M79.674 Pain in right toe(s)

== ENCOUNTER 2024-09-18 13:48 | Outpatient (AMB) | payer OTHER, SELFPAY ==
--- OUTSIDE RECORDS SUMMARY | 2024-08-20 10:00 | XMS_ITS ---
Author Organization [facility] Address [address] [place] [address] Care Team Providers Care Information Systems Security Manager Name Role Phone Maryann Dumont Primary Care Provider UnavailTressa Valdovinos [phone] Encounters Encounter Location Date Provider Diagnosis [facility] [address] [place] [address] 08/20/2024 Tressa Collazo Plan Of Treatment No Information Progress Notes * Yarely CORRALESmDOB:1960 (63 yo F)Acc No.[id number]:08/20/2024 Progress Notes Patient: Ysabel MCGHEE Provider: Obed Collazo DPM :1960 A ge:63 Y S ex:Female Date:08/20/2024 Address:[address] [place], [place] [id number] Pcp:Maryann Dumont Subjective: * Chief Complaints: * * Medical History: Objective: * Vitals: Assessment: Plan: * Treatment: * Images: * The named appointment provid er may or may not be the originator of this progress note, and it is not deemed complete until electronically signed by the appointment provider. Sign off status: Pending * Provider: Obed Collazo DPM Date: 08/20/2024 Generated for Viky pagan/Sigrid/Janelleitting on: 09/18/2024 03:10 PM EDT
[2024-09-18 13:51] VITALS: BP 106/62; PULSE 75; TEMP 36.9; BMI 26.5
--- NOTE | 2024-09-18 13:51 | MHC.OFFWIV ---
Intake Vital Signs 09/18/24 13:51 Height 5 ft 1 in Weight 140 lb 6 oz BMI 26.5 BP 106/62 Blood Pressure Location Lt brachial Position Sitting Pulse 75 Pulse Source Pulse Oximeter Temp 98.5 F Temp Source Oral Intake Visit Reasons: EP upset stomach, constipated Intake Note: Patient present with upset stomach, states she is unable to eat, and has not had a BM in 4 days Patient Tobacco Use Status: Former Tobacco user Contact Centre Supervisor Required: No Is last menstrual period known: No Post menopausal: Yes Patient : No Allergies codeine (CODEINE) Allergy (Unknown, Verified 09/18/24 13:57) HIVES oxycodone (OXYCODONE) Allergy (Unknown, Verified 09/18/24 13:57) HIVES Do you need a note to return to daycare/school/sports/work: Yes HPI HPI Comments History of Present Illness Details Patient is a 63yo F who presents to office with abdominal discomfort/constipation She admits ongoing since Tuesday She admits to discomfort 2 days of nausea, decreased appetite and inabily to have a bowel movement + distension feeling with bloating Last BM ws approx last Tuesday/. No diarrhea No vomiting No fever or chills Denies hx of abdominal surgeries She denies dysuria, frequency, urgency or hematuria She denies taking anything for symptoms Abdominal discomfort now is 7/10 No chance of When questioning more, pt states that last flatulance was last night and that she passed a very small BM this am. 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 Speaking full sentences. Skin: Warm dry throughout Eye: EOMI Respiratory: CTA bilaterally. No wheezes, rales or rhonchi Cardiac: RRR. No murmur ABdominal: Decreased BS throughout. No rebound or guarding. No visible distension of pulsating mass. MSK: Full ROM extremities. Neurology: Alert. No aphasia or facial droop. Gait without abnormality Psych: Good mood and affect Assessment & Plan Assessment & Plan (1) Constipated: Code(s): K59.00 - Constipation, unspecified Qualifiers: Constipation type: unspecified constipation type Qualified Code(s): K59.00 - Constipation, unspecified Plan: Patient seen and evaluated. KUB: No obstruction, stool and gas pattern noted Upond discharge instructions pt states she took miralax without relief She will trial the enema first and then continue to take miralax as prescribed with plenty of fluid F/U with PCP Call with concerns Discussed ER s/s and pt gave verbal understanding and had no additional questions or concerns at time of discharge All questions answered Orders: Orders XR abdomen 1V Today K59.00 - Constipation, unspecified Medications: New polyethylene glycol 3350 dissolve in 8 oz water daily 17 grams PO DAILY 14 ea 0RF constipation sodium phosphates 19-7 gram/118 mL (Pure and Gentle (saline)) 118 mL CO DAILY PRN 133 mL 0RF constipation Coding Level of Care Code Est Pt Level 3 (72587) Diagnoses Constipation, unspecified constipation type K59.00 Constipation type: unspecified constipation type
--- OUTSIDE RECORDS SUMMARY | 2024-09-18 15:10 | XMS_ITS | Encounter Summary ---
Author Organization [facility] Address [address] [place] [address] Care Team Providers Care Spray Technician Name Role Phone Brian Nascimento MD Primary Care Provider Un available Zenaida Oliveira DO Primary Care Pro vider Unavailable Community, Pcp Primary Care Provider Unavailabl e Encounter Details Date Type Department Care Team Description 08/16/2017 Release of Information Medical Records [address] [place] [id number] Abstract, Provider Social History Tobacco Use Types [...] on filedocumented in this encounter Care Teams Spray Technician Relationship Specialty Start Date End Date Brian Nascimento MD PCP - General Internal Medicine 04/08/1712/14 Zenaida Oliveira DO PCP - General Internal Medicine 12/15/18 06/22/21 Community, Pcp PCP - General Internal Medicine 06/23/21 documented as of this encounter
== END 2024-09-18 14:32 | disposition home or self-care (01) ==
PROVIDERS: Visit Provider Physician Assistant
DX: K59.00 Constipation, unspecified (principal)

== ENCOUNTER 2024-09-18 13:48 | Outpatient (REF) | payer OTHER, SELFPAY ==
--- NOTE | ~2024-09-18 | XR_ITS ---
EXAMINATION: XR ABDOMEN 1 VIEW (KUB) HISTORY: K59.00 - Constipation, unspecified COMPARISON: There are no prior studies available for comparison. FINDINGS: A single supine view of the abdomen is submitted. The bowel gas pattern is unremarkable, without evidence of mechanical obstruction. There is a large amount of stool throughout the colon. No abnormal calcifications are identified. There are no abnormal soft tissue masses. The bones are intact. XR/XR abdomen 1V IMPRESSION: Large amount of stool throughout the colon. Electronically signed by: Loki Nick MD 09/18/2024 02:23 PM EDT
== END 2024-09-18 13:49 | disposition home or self-care (01) ==
LOC: HO.HMGCX 13:48
PROVIDERS: Visit Provider Physician Assistant
DX: K59.00 Constipation, unspecified (principal)
CPT/HCPCS: 74018

== ENCOUNTER → 2024-09-18 14:13 | Outpatient (BNV) | payer OTHER, SELFPAY | PROVIDERS: Visit Provider Radiology Diagnostic Radiology | DX: K59.00 Constipation, unspecified (principal) | CPT/HCPCS: 74018 ==

== ENCOUNTER 2024-11-08 09:29 | Outpatient (REF) | payer OTHER, SELFPAY ==
--- OUTSIDE RECORDS SUMMARY | 2024-11-08 13:06 | XMS_ITS | Encounter Summary ---
Author Organization [facility] [facility] Address [address] [place] [address] Care Team Providers Care Tractor Technician Name Role Phone Brian Nascimento MD Primary Care Provider Un available Zenaida Oliveira DO Primary Care Pro vider Unavailable Community, Pcp Primary Care Provider Unavailabl e Reason for Visit * Reason Onset Date Comments REFERRAL 05/19/2017 turkey boner Encounter Details Date Type Department Care Team Description 05/19/2017 Telephone OBGYN - [place] [address] [place] [address] Brian Nascimento MD REFERRAL (turkey boner) Social History Tobacco Use Types Packs/Day Years [...] this patient for the order to see THERAPEUTIC RADIOLOGIST for a routine exam. However, the patient has not responded to any of our phone calls. A letter has also been sent. For this reason, the order will be closed. If the patient changes her mind, please have her contact THERAPEUTIC RADIOLOGIST for an appointment. Thank you. documented in this encounter Plan of Treatment Not on file documented as of this encounter Visit Diagnoses Not on filedocumented in this encounter Care Teams Tractor Technician Relationship Specialty Start Date End Date Brian Nascimento MD PCP - General Internal Medicine 04/08/1712/14 Zenaida Oliveira DO PCP - General Internal Medicine 12/15/18 06/22/21 [facility], Pcp PCP - General Internal Medicine 06/23/21 documented as of this encounter
--- OUTSIDE RECORDS SUMMARY | 2024-11-08 13:06 | XMS_ITS | Encounter Summary ---
Author Organization [facility] Address [address] [place] [address] Care Team Providers Care Utilization Review Coordinator Name Role Phone Zenaida Oliveira DO Primary Care Pro vider Unavailable Community, Pcp Primary Care Provider Unavailabl e Encounter Details Date Type Department Care Team Description 02/19/2019 Hospital Medical Records [address] [place] [address] Chidi Mosquera MD [address] [place] [address] [address] [place] [address] Social History Tobacco Use Types Packs/Day Years [...] on filedocumented in this encounter Care Teams Utilization Review Coordinator Relationship Specialty Start Date End Date Zenaida Oliveira DO PCP - General Internal Medicine 12/15/18 06/22/21 Community, Pcp PCP - General Internal Medicine 06/23/21 documented as of this encounter
--- OUTSIDE RECORDS SUMMARY | 2024-11-08 13:06 | XMS_ITS | Encounter Summary ---
Author Organization [employer] [facility] Address [address] [place] [address] Care Team Providers Care Shop Repairer Name Role Phone Brian Nascimento MD Primary Care Provider Un available Zenaida Oliveira DO Primary Care Pro vider Unavailable Community, Pcp Primary Care Provider Unavailabl e Encounter Details Date Type Department Care Team Description 2018 Old Medical Records Medical Records [address] [place] [address] Abstract, Provider Social History Tobacco Use Types [...] on filedocumented in this encounter Care Teams Shop Repairer Relationship Specialty Start Date End Date Brian Nascimento MD PCP - General Internal Medicine 04/08/1712/14 Zenaida Oliveira DO PCP - General Internal Medicine 12/15/18 06/22/21 Community, Pcp PCP - General Internal Medicine 06/23/21 documented as of this encounter
--- OUTSIDE RECORDS SUMMARY | 2024-11-08 13:06 | XMS_ITS | Encounter Summary ---
Author Organization [facility] Address [address] [place] [address] Care Team Providers Care House Superintendent Name Role Phone Brian Nascimento MD Primary Care Provider Un available Zenaida Oliveira DO Primary Care Pro vider Unavailable Community, Pcp Primary Care Provider Unavailabl e Encounter Details Date Type Department Care Team Description 06/24/2017 Orders Only Medical Records [address] [place] [address] Sophy Gonzalez PA-C [address] [place] [address] Social History Tobacco Use Types Packs/Day Years [...] filedocumented in this encounter Care Teams House Superintendent Relationship Specialty Start Date End Date Brian Nascimento MD PCP - General Internal Medicine 04/08/1712/14 Zenaida Oliveira DO PCP - General Internal Medicine 12/15/18 06/22/21 Community, Pcp PCP - General Internal Medicine 06/23/21 documented as of this encounter
--- OUTSIDE RECORDS SUMMARY | 2024-11-08 13:06 | XMS_ITS | Encounter Summary ---
Author Organization [employer] [facility] Address [address] [place] [address] Care Team Providers Care Clerical Office Name Role Phone Brian Nascimento MD Primary Care Provider Un available Zenaida Oliveira DO Primary Care Pro vider Unavailable Community, Pcp Primary Care Provider Unavailabl e Encounter Details Date Type Department Care Team Description 08/16/2017 Release of Information Medical Records [address] [place] [id number] Abstract, Provider Social History Tobacco Use Types [...] on filedocumented in this encounter Care Teams Clerical Office Relationship Specialty Start Date End Date Brian Nascimento MD PCP - General Internal Medicine 04/08/1712/14 Zenaida Oliveira DO PCP - General Internal Medicine 12/15/18 06/22/21 Community, Pcp PCP - General Internal Medicine 06/23/21 documented as of this encounter
--- OUTSIDE RECORDS SUMMARY | 2024-11-08 13:06 | XMS_ITS | Encounter Summary ---
Author Organization [facility] [employer] [facility] Address [address] [facility] [place] [address] Care Team Providers Care Commissions Manager Name Role Phone Zenaida Oliveira DO Primary Care Pro vider Unavailable [facility], Pcp Primary Care Provider Unavailabl e Encounter Details Date Type Department Care Team Description 08/28/2019 Telephone Gastroenterology - [place] [address] [facility] [address] [place] [address] Nata Miller DScPAS Social History [...] on filedocumented in this encounter Care Teams Commissions Manager Relationship Specialty Start Date End Date Zenaida Oliveira DO PCP - General Internal Medicine 12/15/18 06/22/21 [place], Pcp PCP - General Internal Medicine 06/23/21 documented as of this encounter
--- OUTSIDE RECORDS SUMMARY | 2024-11-08 13:06 | XMS_ITS | Encounter Summary ---
Author Organization [employer] [facility] Address [address] [place] [address] Care Team Providers Care Technical Cable Jointer Name Role Phone Brian Nascimento MD Primary Care Provider Un available Zenaida Oliveira DO Primary Care Pro vider Unavailable Community, Pcp Primary Care Provider Unavailabl e Encounter Details Date Type Department Care Team Description 05/03/2017 Release of Information Medical Records [address] [place] [id number] Abstract, Provider Social History Tobacco Use Types [...] on filedocumented in this encounter Care Teams Technical Cable Jointer Relationship Specialty Start Date End Date Brian Nascimento MD PCP - General Internal Medicine 04/08/1712/14 Zenaida Oliveira DO PCP - General Internal Medicine 12/15/18 06/22/21 Community, Pcp PCP - General Internal Medicine 06/23/21 documented as of this encounter
--- OUTSIDE RECORDS SUMMARY | 2024-11-08 13:06 | XMS_ITS | Encounter Summary ---
Author Organization [facility] Address [address] [place] [address] Care Team Providers Care Drawer Fitter Name Role Phone Zenaida Oliveira DO Primary Care Pro vider Unavailable Community, Pcp Primary Care Provider Unavailabl e Reason for Visit * Reason Onset Date Comments hospital follow up 01/05/2019 Encounter Details Date Type Department Care Team Description 01/05/2019 Telephone Adult Medicine [address] [address] Zenaida Oliveira DO hospital follow up Social [...] dr Zenaida Larsen 01/10 at 9:30 for [facility] [place] chest pain * Telephone Encounter - [place] - 01/05/2019 2:45 PM EDT Hospital follow up appointment needed Hospital patient was treated at: [facility] Was this only an ER visit or [...] on filedocumented in this encounter Care Teams Drawer Fitter Relationship Specialty Start Date End Date Zenaida Oliveira DO PCP - General Internal Medicine 12/15/18 06/22/21 [facility], Pcp PCP - General Internal Medicine 06/23/21 documented as of this encounter
[2024-11-08 13:29] LABS: Bacterial Vaginosis PCR NEGATIVE (Negative); Candida Group PCR DETECTED (Not Detect); Candida glab krusei PCR NOT DETECTED (Not Detect); Trichomonas vaginalis PCR NOT DETECTED (Not Detect)
== END 2024-11-08 09:30 | disposition home or self-care (01) ==
LOC: HO.LAB 09:29
DX: E66.811 Obesity, class 1 (principal); R30.0 Dysuria; K21.9 Gastro-esophageal reflux disease without esophagitis; M17.0 Bilateral primary osteoarthritis of knee; Z68.26 Body mass index [BMI] 26.0-26.9, adult
CPT/HCPCS: 81002; 81515; 87086; 87088; 87186; 96127

== ENCOUNTER 2024-11-08 09:29 | Outpatient (AMB) | payer OTHER, SELFPAY ==
--- OUTSIDE RECORDS SUMMARY | 2024-08-20 10:00 | XMS_ITS ---
Author Organization [facility] Address [address] [place] [address] Care Team Providers Care Exceptional Children Teacher Name Role Phone Maryann Dumont Primary Care Provider UnavailTressa Valdovinos [phone] Encounters Encounter Location Date Provider Diagnosis [facility] [address] [place] [address] 08/20/2024 Tressa Collazo Plan Of Treatment No Information Progress Notes * Yarely CORRALESmDOB:1960 (63 yo F)Acc No.[id number]:08/20/2024 Progress Notes Patient: Ysabel MCGHEE Provider: Obed Collazo DPM :1960 A ge:63 Y S ex:Female Date:08/20/2024 Address:[address] [place], [place] [id number] Pcp:Maryann Dumont Subjective: * Chief Complaints: * [...] Date: 08/20/2024 Generated for Viky pagan/Sigrid/Janelleitting on: 0 11/08/2024 10:12 AM EDT
--- NOTE | 2024-11-08 09:31 | A.OFFPC_ITS ---
Vital Signs 11/08/24 09:33 Height 5 ft 1 in Weight 138 lb 4 oz BMI 26.1 BP 104/60 Blood Pressure Location Lt brachial Position Sitting Pulse 71 Pulse Source Pulse Oximeter Pulse Oximetry (%) 95 Oxygen Delivery Method Room Air Intake Visit Reasons: 2 month f/u Clean Room Technician Required: No Accompanied by: Self / Same As Patient Allergies codeine (CODEINE) Allergy (Unknown, Verified 11/08/24 09:56) HIVES oxycodone (OXYCODONE) Allergy (Unknown, Verified 11/08/24 09:56) HIVES Medication List - Last Reconciled 11/08/24 by Maryann Dumont PA-C acetaminophen (Tylenol Extra Strength) 500 - 1,000 mg (1 - 2 x 500 mg) PO Q6H PRN albuterol sulfate 90 mcg/actuation 2 puffs inhalation Q4-6H PRN albuterol sulfate 2.5 mg (0.5 mL) inhalation Q20M cetirizine (All Day Allergy (cetirizine)) 10 mg PO DAILY PRN cholecalciferol (vitamin D3) 25 mcg PO DAILY cyclobenzaprine 10 mg PO BEDTIME PRN 5 days esomeprazole magnesium 40 mg PO DAILY fluticasone propionate 50 mcg/actuation (Flonase Allergy Relief) 2 sprays intranasal DAILY ibuprofen 600 mg PO Q6H PRN polyethylene glycol 3350 17 grams PO DAILY semaglutide (weight loss) (Wegovy) 1 mg (0.5 mL) subcut Q7D sodium phosphates 19-7 gram/118 mL (Pure and Gentle (saline)) 118 mL SD DAILY PRN Tobacco use date assessed: 11/08/24 Dental Screening Dental Screen Date: 11/08/24 Did you have a dental visit in the last 12 months?: No Did you have a dental problem in the last 6 months where you did not have access to dental care?: No Was dental information given to patient?: No HPI 2 month f/u HPI Details 63-year-old female with past medical his tory of obesity, obstructive sleep apnea, asthma, GERD last seen 07/2024 coming in for follow up. Presenting with urinary symptoms suggestive of a urinary tract infection. Reports burning sensation during urination, starting three days ago, with an unusual smell and intermittent itching. A vaginal swab for bacterial vaginosis and yeast infection is planned. Reports knee pain in right calf and knee, described as tight and painful, especially after prolonged standing. The pain is intermittent and has been present for about one month. Significant weight loss of 30 pounds since starting Ozempic, now maintaining through diet and exercise. 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 1. Little interest or pleasure in doing things: nearly every day 2. Feeling down, depressed, or hopeless: not at all 3. Trouble falling or staying asleep, or sleeping too much: not at all 4. Feeling tired or having little energy: not at all 5. Poor appetite or overeating: not at all 6. Feeling bad about yourself - or that you are a failure or have let yourself or your family down: nearly every day 7. Trouble concentrating on things, such as reading the newspaper or watching television: not at all 8. Moving or speaking so slowly that other people could have noticed. Or the opposite - being so fidgety or restless that you have been moving around a lot more than usual: not at all 9. Thoughts that you would be better off or of hurting yourself in some way: not at all Total score: 6 26568 - PHQ-9 Billing: Yes Source: Developed by Drs. Loki Pop, Ilda Downey, Cheng Garcia and colleagues, with an educational maribel from [employer] Thrive Questionnaire Date Thrive assessed: 03/07/24 I am a: Patient What is your living situation today?: I have a steady place to live Within the past 12 months, did the food you bought not last and you didn't have the money to get more?: Sometimes True Within the past 12 months, did you worry whether your food would run out before you got money to buy more?: I choose not to answer this question Do you have trouble paying for medicines?: No Do you have trouble getting transportation to medical appointments?: No Do you have trouble paying your heating and electricity bill?: I choose not to answer this question Do you have trouble taking care of your child, family member or friend?: No Do you have trouble with day-to-day activities such as bathing, preparing meals, shopping, managing finances, etc.?: No Are you currently unemployed and looking for a job?: No Are you interested in more education?: No Please select the resources that you would like help with: None Currently or been in a relationship where the following occur: No concerns reported THRIVE Score: 1 AUDIT C Alcohol Use Questionnaire (AUDIT-C) 3. How often do you have six or more drinks on one occasion?: Never Total Score: 0 FERCHO-7 AMB Questionnaire FERCHO-7 Date FERCHO - 7 assessed: 03/14/24 Feeling nervous, anxious, or on edge: 3 = Nearly every day Not being able to stop or control worryin = Not at all Worrying too much about different things: 0 = Not at all Trouble relaxin = Not at all Being so restless that it is hard to sit still: 0 = Not at all Becoming easily annoyed or irritable: 0 = Not at all Feeling afraid as if something awful might happen: 0 = Not at all Total FERCHO-7 score (0-4 normal; 5-9 mild; 10-14 moderate; 15-21 severe): 3 Source: Developed by Drs. Loki Pop, Ilda Downey, Cheng Garcia and colleagues, with an educational maribel from [employer] FERCHO-7 Assessment Billing FERCHO-7 Assessment Tool: FERCHO-7 Assessment 46237 Review of Systems Const Denies body aches, Denies chills, Denies fever(s), Denies headache(s) and Denies poor appetite Eyes Reports no additional complaints ENT Denies dizziness and Denies headache(s) Card Denies chest pain, Denies irregular heart rhythm, Denies lightheadedness and Denies dyspnea Resp Denies cough and Denies dyspnea GI Denies abdominal pain, Denies constipation, Denies diarrhea, Denies nausea and Denies vomiting Details: burning with urination, itching and foul odor in the urine Reports as per HPI Musc Details: intermittent right calf pain no currently active Denies abnormal gait Neuro Denies abnormal gait, Denies dizziness and Denies headache(s) Psych Reports no additional complaints Physical exam (Primary Care) Vital Signs: Last Vital Signs Pulse 71 11/08/24 09:33 BP 104/60 11/08/24 09:33 Pulse Ox 95 11/08/24 09:33 Oxygen Delivery Method Room Air 11/08/24 09:33 BMI result Body Mass Index 26.1 Tobacco/Smoking Status: Tobacco use Status Tobacco use date assessed 11/08/24 11/08/24 09:42 Patient Tobacco Use Status Former Tobacco user 11/08/24 09:42 Tobacco use type Cigarette 11/08/24 09:42 e-Cigarette/Vaping Use Never Used 11/08/24 09:42 PHQ-9: PHQ-9 Score PHQ-9: Total score 6 11/08/24 12:33 Thrive Assessment: Date of Thrive Assessment Date Thrive assessed 03/07/24 11/08/24 09:42 Currently or been in a relationship where the following occur: No concerns reported Const General: cooperative, healthy appearing, comfortable and no acute distress Orientation/consciousness: patient oriented x3 [facility] Head: Yes normocephalic Ears: hearing grossly normal bilaterally General nose exam: Normal external nose present Eyes General: appearance normal, both eyes and all related structures Conjunctivae: conjunctivae normal Neck Neck: Yes full ROM and Yes no lymphadenopathy Resp Effort & Inspection: normal respiratory effort Auscultation: clear to auscultation bilaterally, no crackles, no rales, no rhonchi and no wheezes Cardio Rate: regular rate Rhythm: regular rhythm GI Palpation (GI): Soft to palpation, not firm, nontender, no guarding and not rigid General: Yes no CVA tenderness Back/Spine/Pelvis Back: no CVA tenderness Skin General skin exam: no rashes or lesions noted Neuro General: patient oriented x3 Gait exam (Neuro): Normal gait present Extrem General: Yes normal to inspection, Yes full ROM and No edema Psych Affect: normal affect Attitude: cooperative Insight: Good insight present (Psych) Judgement: Good judgement present (Psych) Results AMB Urinalysis Dipstick UR Leukocytes Medium Last Edit by Miguel Sams MA on 11/08/24 13:49 +2 Miguel Sams 11/08/24 13:49 UR Nitrite Negative Last Edit by Miguel Sams MA on 11/08/24 13:49 UR Urobilinogen 1 Last Edit by Miguel Sams MA on 11/08/24 13:49 UR Protein Negative Last Edit by Miguel Sams MA on 11/08/24 13:49 UR Ph 6.0 Last Edit by Miguel Sams MA on 11/08/24 13:49 UR Blood Negative Last Edit by Miguel Sams MA on 11/08/24 13:49 UR Specific [place] 1.010 Last Edit by Miguel Sams MA on 11/08/24 13:4 9 UR Ketone Negative Last Edit by Miguel Sams MA on 11/08/24 13:49 UR Bilirubin Negative Last Edit by Miguel Sams MA on 11/08/24 13:49 UR Glucose Negative Last Edit by Miguel Sams MA on 11/08/24 13:49 Coding Level of Care Code Est Pt Level 3 (15137) Diagnoses Obesity (BMI 30.0-34.9) E66.811 GERD (gastroesophageal reflux disease) K21.9 Dysuria R30.0 Bilateral primary osteoarthritis of knee M17.0 Additional Codes FERCHO-7 Assessment Billing - FERCHO-7 Assessment Tool: FERCHO-7 Assessment 70502 ([id number]) PHQ-9 - 40677 - PHQ-9 Billing: Yes ([id number]) Assessment & Plan Assessment & Plan (1) Obesity (BMI 30.0-34.9): Code(s): E66.811 - Obesity, class 1 Category: Medical Plan: Healthy diet and regular exercise is encouraged. Noted 9 lb weight loss since last visit. She would like to discontinue the Wegovy at this time and is happy with her weight loss. She will continue to work on weight loss with exercise and diet at this time. Total weight loss 30 lb since starting Wegovy. (2) GERD (gastroesophageal reflux disease): Code(s): K21.9 - Gastro-esophageal reflux disease without esophagitis Category: Medical Plan: Avoid trigger foods such as citrus, tomato products, soda, caffeine, spicy foods and other foods that may be irritating to your stomach. Avoid laying flat 3-4 hours after eating and elevate the head of the bed 30 degrees to prevent acid from moving into the esophagus. Has not yet completed upper GI series and reo rdered for testing. (3) Dysuria: Code(s): R30.0 - Dysuria Category: Medical Plan: A urinalysis will be conducted to confirm the presence of a urinary tract infection, given the patient's symptoms of burning during urination and unusual smell. The patient will also perform a self-administered vaginal swab to rule out bacterial vaginosis and yeast infection as potential causes of the symptoms. (4) Bilateral primary osteoarthritis of knee: Code(s): M17.0 - Bilateral primary osteoarthritis of knee Category: Medical Plan: The patient reports knee pain, particularly in right calf and knee, described as tight and painful, especially after prolonged standing. She has been advised that surgery may be needed in the future, but not immediately, and is encouraged to continue with gentle stretching and use of supportive footwear. Reviewed red flag symptoms of blood clots and when to present for re-evaluation. Low suspicion for DVT at this time. Plan This note was constructed using voice recognition software. While every effort has been made to ensure accuracy and thread spooler, still areas may have been included sometimes these areas may affect the content or meeting of the given symptoms. Total time spent caring for the patient today was 20 minutes. This includes time spent before the visit reviewing the chart, time spent during the visit, and time spent after the visit and documentation. Patient was informed and verbally consented to the use of an ambient scribe for clinic note documentation during this visit. Orders: Orders Bacterial Vaginosis Panel Today R30.0 - Dysuria AMB Urinalysis Dipstick Today Z13.9 - Encounter for screening, unspecified [place] upper GI series Today K21.9 - Gastro-esophageal reflux disease without esophagitis, K44.9 - Diaphragmatic hernia without obstruction or gangrene Urine Culture Today R30.0 - Dysuria Complete Blood Count Auto Diff Today K21.9 - Gastro-esophageal reflux disease without esophagitis, Z00.00 - Encounter for general adult medical examination without abnormal findings Lipid Panel Today E78.00 - Pure hypercholesterolemia, unspecified Vitamin D 25-OH Total Today Z13.21 - Encounter for screening for nutritional disorder Vitamin B12 and Folate Today Z13.21 - Encounter for screening for nutritional disorder TSH reflex Free T4 Today Z13.29 - Encounter for screening for other suspected endocrine disorder Comprehensive Met. Panel Today K21.9 - Gastro-esophageal reflux disease without esophagitis, Z00.00 - Encounter for general adult medical examination without abnormal findings Medications: Discontinued semaglutide (weight loss) (Kevan) Discontinued Reason: Patient no longer taking 1 mg (0.5 mL) subcut Q7D 2 mL 0RF
[2024-11-08 09:33] VITALS: BP 104/60; PULSE 71; O2SAT 95; BMI 26.1
--- OUTSIDE RECORDS SUMMARY | 2024-11-08 10:13 | XMS_ITS | Patient Health Record ---
Author Organization [facility] Address [address] [place] [address] Care Team Providers Care Beater Machine Operator Name Role Phone Maryann Dumont Primary Care Provider Unavailab Tressa Simon Unavailable [phone] Reason For Referral No Information Encounters Encounter Location Date Provider Diagnosis [facility] [address] [place] [address] 08/06/2024 Tressa Collazo [facility] [address] [place] [address] 08/14/2024 Tressa Collazo Plan Of Treatment No Information Insurance Providers Payer Name Payer Address Payer Phone Subscriber Number Group Number Insured Name Patient Relationship to Insured Coverage Start Date Coverage End Date [employer] Medicare [id number] [address] [address] [place] [phone] [id number] Ysabel Oden Self - patient is the insured
== END 2024-11-08 10:35 | disposition home or self-care (01) ==
LOC: HO.HMCH 09:29
DX: K21.9 Gastro-esophageal reflux disease without esophagitis (principal); E66.811 Obesity, class 1; Z68.26 Body mass index [BMI] 26.0-26.9, adult; R30.0 Dysuria; M17.0 Bilateral primary osteoarthritis of knee

== ENCOUNTER 2025-02-13 14:19 | Outpatient (REF) | payer OTHER, SELFPAY ==
--- OUTSIDE RECORDS SUMMARY | 2024-08-20 09:00 | XMS_ITS ---
Author Organization [facility] Address [address] [place] [address] Care Team Providers Care City Superintendent Of Schools Name Role Phone Maryann Dumont Primary Care Provider UnavailTressa Valdovinos [phone] Encounters Encounter Location Date Provider Diagnosis [facility] [address] [place] [address] 08/20/2024 Tressa Collazo Plan Of Treatment No Information Progress Notes * Yarely CORRALESmDOB:1960 (64 yo F)Acc No.[id number]:08/20/2024 Progress Notes Patient: Ysabel MCGHEE Provider: Obed Collazo DPM :1960 A ge:63 Y S ex:Female Date:08/20/2024 Address:[address] [place], [place] [id number] Pcp:Maryann Dumont Subjective: * Chief Complaints: * * Medical History: Objective: * Vitals: Assessment: Plan: * Treatment: * Images: * The named appointment provid er may or may not be the originator of this progress note, and it is not deemed complete until electronically signed by the appointment provider. Sign off status: Pending * Provider: Obed Collazo DPM Date: 0 08/20/2024 Generated for Viky pagan/Sigrid/Isaura on: 04/16/2024 11:53 PM EST
--- OUTSIDE RECORDS SUMMARY | 2025-02-13 23:54 | XMS_ITS | Patient Health Record ---
Author Organization [facility] Address [address] [place] [address] Care Team Providers Care Music Educator Name Role Phone Maryann Dumont Primary Care Provider Unavailab Tressa Simon Unavailable [phone] Reason For Referral No Information Encounters Encounter Location Date Provider Diagnosis [facility] [address] [place] [address] 08/06/2024 Tressa Collazo [facility] [address] [place] [address] 08/14/2024 Tressa Collazo Plan Of Treatment No Information Insurance Providers Payer Name Payer Address Payer Phone Subscriber Number Group Number Insured Name Patient Relationship to Insured Coverage Start Date Coverage End Date [employer] Medicare [id number] [address] [address] [place] [address] [id number] Ysabel Oden Self - patient is the insured
== END 2025-02-13 14:20 | disposition home or self-care (01) ==
LOC: HO.LAB 14:19
DX: R30.0 Dysuria (principal)
CPT/HCPCS: 87086; 87088; 87186